=== PATIENT | female | born 1940 | race Caucasian/White ===

== ENCOUNTER → 2018-09-02 | Day surgery (SDC) | payer MEDICARE ==
[~2018-09-02] MED LIST: ACETAMINOPHEN325 M1 PO; ACETAMINOPHEN500 MG PO; ALLEGRA ALLERG180 MG PO; AMLODIPINE BESY10 MG PO; ARTIFICIAL TEA1 EACH OU; CARAFATE1 GM/10 ML PO; CILOSTAZOL100 MG PO; CIMZIA400 MG SC; DULCOLAX5 MG PO; DUONEB INH; EPINEPHRIN0.3 MG/0.3 SC; FERROUS SULFAT325 MG PO; FLUTICASONE PRO16 GM; GABAPENTIN300 MG PO; GUAIFENESI100 MG/5 M PO; GUAIFENESIN400 MG PO; HYDROXYZINE HCL25 MG PO; KAOPECTATE262 MG/15 PO; LEFLUNOMIDE10 MG PO; LIPITOR20 MG PO; LOMOTIL TABLET1 EACH PO; LOPERAMIDE PO; MAGNESIUM CITR296 ML PEG; MECLIZINE HCL12.5 MG PO; MULTIVITAMINS1 EAC6 PO; MYLANTA PO; MYRBETRIQ25 MG PO; NORCO 7.5-3251 EACH PO; NYSTOP60 GM TOP; OMEPRAZOLE40 MG PO; PATADAY2.5 ML OU; PAXIL10 MG PO; PROPOFOL IV EMULSION 10 MG/ML 50 ML VIAL ONE; QUESTRAN PACKET4 GM PO; ROPINIROLE HCL3 MG PO; SYNTHROID100 MCG PO; TIZANIDINE HCL4 M1 PO; VITAMIN B-121000 MCG PO; VITAMIN C500 MG PO; VITAMIN D5000 UNIT PO; VOLTAREN100 GM TOP; XARELTO20 MG PO; ZANTAC 7575 MG PO; ZOFRAN8 MG PO
--- OUTSIDE RECORDS SUMMARY | 2018-09-02 10:21 | XMS REPORT | Clinical Summary ---
Author Author [employer] Organization [facility] Address Unknown Phone Unavailable Care Team Providers Care Talent [employer] Manager Name Role Phone Callens, Ricardo Cutler MD PCP Allergies Comments Active Allergy Reactions Severity Noted Date Chlordiazepoxide Hydromorphone 10/10/2016 Other reaction(s): Other Duloxetine High Etanercept 10/10/2016 Chlordiazepoxide-Clidiniu 07/10/2017 m Methadone Other (See High Comments) Penicillins 10/10/2016 Medications End Date Status Medication Sig Dispensed Refills Start Date Active cilostazol (PLETAL) 100 Take 100 mg 0 MG tablet by mouth 2 (two) times a day. Active gabapentin (NEURONTIN) Take 600 mg 0 600 mg tablet by mouth 3 (three) times a day. Active hydrOXYzine (ATARAX) 10 Take 50 mg by 0 MG tablet mouth 3 (three) times a day as needed for itching. Active leflunomide (ARAVA) 10 MG Take 10 mg by 0 tablet mouth daily. Active levothyroxine (SYNTHROID, Take 150 mcg 0 LEVOXYL) 150 mcg tablet by mouth every morning. Active melatonin 3 mg tablet Take by 0 mouth. Active rOPINIRole (REQUIP) 3 MG Take 3 mg by 0 tablet mouth nightly. Active tiZANidine (ZANAFLEX) 2 Take 2 mg by 0 MG tablet mouth every 8 (eight) hours as needed for muscle spasms. Active rivaroxaban (XARELTO) 20 Take 20 mg by 0 mg tablet mouth. Active HYDROcodone-acetaminophen Take 1 tablet 0 (NORCO) 10-325 mg per by mouth tablet every 6 (six) hours as needed for moderate pain. Active PARoxetine (PAXIL) 20 MG Take 20 mg by 0 tablet mouth every morning. Active MOMETASONE FUROATE Inhale. 0 (ASMANEX HFA INHL) Active atorvastatin (LIPITOR) 10 Take 10 mg by 0 MG tablet mouth daily. Active fexofenadine (ASHLYN) Take 180 mg 0 180 MG tablet by mouth daily. Active traZODone (DESYREL) 50 MG Take 50 mg by 0 tablet mouth nightly. Active mirabegron 25 mg tablet Take by 0 extended release 24 hr mouth. Active cyanocobalamin 1000 MCG Take 1,000 0 tablet mcg by mouth daily. Active MAG HYDROX/ALUMINUM Take by mouth 0 HYD/SIMETH (MYLANTA ORAL) nightly. Active ferrous sulfate 325 (65 Take 325 mg 0 FE) MG tablet by mouth daily with breakfast. Active nystatin (MYCOSTATIN) Apply 0 100,000 unit/gram powder topically 2 (two) times a day. Active albuterol sulfate Take 2.5 mg 0 (PROVENTIL) 2.5 mg/0.5 mL by solution for nebulization nebulization every 6 (six) hours as needed. Active amLODIPine (NORVASC) 10 Take 10 mg by 0 mg tablet mouth daily. Active sucralfate (CARAFATE) 100 Take 1 g by 0 mg/mL suspension mouth 4 (four) times a day. 09/25/2018 Active cholestyramine (QUESTRAN) Take 1 packet 60 packet 3 4 gram packet by mouth 2 8 (two) times a day. Active cholecalciferol, vitamin Take 1,000 0 D3, (VITAMIN D3) 1,000 Units by unit tablet mouth daily. 09/25/2017 Discontinued benzonatate (TESSALON) Take 100 mg 0 100 MG capsule by mouth 3 (three) times a day as needed for cough. 09/25/2017 Discontinued guaiFENesin (ROBITUSSIN) Take 200 mg 0 100 mg/5 mL syrup by mouth 3 (three) times a day as needed for cough. 09/25/2017 Discontinued fluconazole (DIFLUCAN) Take 200 mg 0 200 MG tablet by mouth daily. 09/25/2017 Discontinued ranitidine (ZANTAC) 15 Take 75 mg by 0 mg/mL syrup mouth 2 (two) times a day. 09/12/2017 esomeprazole (NexIUM) 40 Take 1 60 capsule 2 MG capsule capsule (40 8 mg total) by mouth 2 (two) times a day for 30 days. 12/27/2017 cholestyramine (QUESTRAN) Take 1 packet 90 packet 2 4 gram packet by mouth 3 8 (three) times a day for 30 days. 12/27/2017 famotidine (PEPCID) 40 MG Take 1 tablet 30 tablet 2 tablet (40 mg total) 8 by mouth nightly for 30 days. Active Problems Problem Noted Date Diaphragmatic hernia without obstruction and without gangrene 08/13/2017 Diarrhea 08/13/2017 Other dysphagia 07/16/2017 Gastroesophageal reflux disease 07/16/2017 Dyspepsia 07/16/2017 Heartburn 07/16/2017 Debility 06/04/2017 Other cervical disc degeneration at C4-C5 level 06/03/2017 Cervical spinal stenosis 06/02/2017 Laceration of left elbow 03/04/2017 Olecranon bursitis of right elbow 10/10/2016 Encounters Care Team Description Date Type Specialty Derik Hernandez DO Cervicalgia; Other spondylosis, lumbar region 01/22/2018 Hospital Radiology Encounter Derik Hernandez DO Cervicalgia; Other spondylosis, lumbar region 01/22/2018 Hospital Radiology Encounter Derik Hernandez DO Cervicalgia (Primary Dx); Other spondylosis, lumbar region 01/20/2018 Transcribe Access Orders Ivan Payne MD Heartburn (Primary Dx); Dyspepsia; Gastroesophageal reflux disease, esophagitis presence not specified; Diverticulosis large intestine w/o perforation or abscess w/o bleeding 11/27/2017 Office Visit Gastroenterology Che Cantrell MA 10/02/2017 Telephone Gastroenterology Ivan Payne MD Diarrhea, unspecified type 10/01/2017 Hospital Radiology Encounter Ivan Payne MD Diarrhea, unspecified type (Primary Dx); Dyspepsia; Gastroesophageal reflux disease, esophagitis presence not specified; Heartburn 09/25/2017 Office Visit Gastroenterology after 09/01/2017 Family History Medical History Relation Name Comments Colon cancer Brother No Known Problems Father No Known Problems Mother Colon polyps Sister Breast cancer Sister Relation Name Status Comments Brother Father Mother Sister Sister Social History Date Tobacco Use Types Packs/Day Years Used Never Smoker Smokeless Tobacco: Never Used Tobacco Cessation: Counseling Given: No Alcohol Use Drinks/Week oz/Week Comments No Sex Assigned at Date Recorded Not on file Industry Job Start Date Occupation Not on file Not on file Not on file Travel End Travel History Travel Start No recent travel history available. Last Filed Vital Signs Time Taken Vital Sign Reading 11/27/2017 10:52 AM CDT Blood Pressure 147/72 11/27/2017 10:52 AM CDT Pulse 81 11/27/2017 10:52 AM CDT Temperature 36.6 C (97.9 F) 09/25/2017 11:19 AM FACING SLITTER Respiratory Rate 12 - Oxygen Saturation - - Inhaled Oxygen - Concentration 11/27/2017 10:52 AM CDT Weight 59.9 kg (132 lb) 11/27/2017 10:52 AM CDT Height 154.9 cm (5' 1") 11/27/2017 10:52 AM CDT Body Mass Index 24.94 Plan of Treatment Care Team Description Date Type Specialty Jose Cooper MD [address] [place] [address], [address] [place], [place] [address] 09/09/2018 Office Visit Cardiovascular Health Maintenance Due Date Last Done Comments SHINGLES VACCINES (1 of 01/31/1988 2) PNEUMOCOCCAL 2003 POLYSACCHARIDE VACCINE AGE 65 AND OVER PNEUMOCOCCAL-13 2003 INFLUENZA VACCINE 03/04/2018 06/04/2013 Procedures Comments Procedure Name Priority Date/Time Associated Diagnosis MRI LUMBAR SPINE WO Routine 01/22/2018 Cervicalgia CONTRAST 2:23 PM CDT Other spondylosis, lumbar region MRI CERVICAL SPINE WO Routine 01/22/2018 Cervicalgia CONTRAST 2:22 PM CDT Other spondylosis, lumbar region FL COLON WITH AIR Routine 10/01/2017 Diarrhea, unspecified CONTRAST 11:30 AM FACING SLITTER type after 09/01/2017 Results * MRI Lumbar Spine Wo Contrast (01/22/2018 2:23 PM CDT) Narrative Performed At EXAMINATION:MRI LUMBAR SPINE WO CONTRAST [facility] CLINICAL HISTORY:M54.2 Cervicalgia, M47.896 Other spondylosislumbar region, M47.896 COMPARISON: None FINDINGS: Noncontrast MRI of the lumbar spine is interpreted. There is collapse of the L5-S1 interbody space with bony fusion. Conus terminates in a normal position and is normal in signal intensity. L1-2: Mild bilateral facet arthrosis. L2-3: Minimal disc degenerative changes. Mild bilateral facet arthrosis. L3-4: Moderate prominent disc degenerative changes with endplate irregularity posteriorly. Disc bulge with superimposed broad-based right paracentral disc protrusion. Laminotomies bilaterally. Moderate to prominent facet arthrosis bilaterally. Mild left foraminal stenosis. L4-5: Marked disc degenerative changes. Endplate irregularity. Mixed Modic endplate signal changes. Disc bulge with superimposed broad-based central zone disc protrusion. Laminotomy bilaterally. Moderate to prominent facet arthrosis bilaterally. Moderate right and mild left foraminal stenosis. Mild canal stenosis. L5-S1: Solid bony fusion. There is deconditioning of the paraspinous musculature. IMPRESSION: Lumbar spondylosis, most pronounced at the L4-5 and L3-4 levels. No significant canal stenosis. Moderate right L4-5 foraminal stenosis. Solid bony fusion of L5-S1. Laminotomies of L4-5 and L3-4. [facility]-[id number] Procedure Note [facility], Radiology Results Incoming - 01/22/2018 4:51 PM CDT EXAMINATION: MRI LUMBAR SPINE WO CONTRAST CLINICAL HISTORY: M54.2 Cervicalgia, M47.896 Other spondylosis lumbar region, M47.896 COMPARISON: None FINDINGS: Noncontrast MRI of the lumbar spine is interpreted. There is collapse of the L5-S1 interbody space with bony fusion. Conus terminates in a normal position and is normal in signal intensity. L1-2: Mild bilateral facet arthrosis. L2-3: Minimal disc degenerative changes. Mild bilateral facet arthrosis. L3-4: Moderate prominent disc degenerative changes with endplate irregularity posteriorly. Disc bulge with superimposed broad-based right paracentral disc protrusion. Laminotomies bilaterally. Moderate to prominent facet arthrosis bilaterally. Mild left foraminal stenosis. L4-5: Marked disc degenerative changes. Endplate irregularity. Mixed Modic endplate signal changes. Disc bulge with superimposed broad-based central zone disc protrusion. Laminotomy bilaterally. Moderate to prominent facet arthrosis bilaterally. Moderate right and mild left foraminal stenosis. Mild canal stenosis. L5-S1: Solid bony fusion. There is deconditioning of the paraspinous musculature. IMPRESSION: Lumbar spondylosis, most pronounced at the L4-5 and L3-4 levels. No significant canal stenosis. Moderate right L4-5 foraminal stenosis. Solid bony fusion of L5-S1. Laminotomies of L4-5 and L3-4. [facility]-[id number] Performing Organization Address City/State/Zipcode Phone Number [facility] [address] [place] [place] [address] * MRI Cervical Spine Wo Contrast (01/22/2018 2:22 PM CDT) Narrative Performed At [facility] EXAMINATION:MRI CERVICAL SPINE WO CONTRAST CLINICAL HISTORY:M54.2 Cervicalgia, M47.896 Other spondylosislumbar region, M54.2 COMPARISON: MRI cervical spine dated 01/29/2017. FINDINGS: Noncontrast MRI of the cervical spine is interpreted. The cervical cord is normal in volume and in signal intensity. Bone marrow signal is normal. There are interval laminectomies of C4, C5, and C6. There is arthropathy of the median atlantoaxial joint with pannus formation. Moderate arthrosis of the left lateral atlantoaxial joint is noted as well. C2-3: Moderate left facet arthrosis, unchanged. C3-4: Moderate disc degenerative changes. Grade 1 anterolisthesis. Moderate bilateral facet arthrosis. Mild bilateral foraminal stenosis. Mild canal narrowing has improved. C4-5: Ankylosis. No significant stenosis. C5-6: Disc degenerative changes with mild dorsal endplate spurring. Moderate bilateral facet arthrosis, most pronounced on the left. Minimal right foraminal narrowing. Laminectomies. Otherwise no significant interval change. C6-7: This degenerative changes. Grade 1 anterolisthesis. Disc bulge. Shallow left paracentral disc protrusion. Moderate bilateral facet arthrosis. No significant interval change. C7-T1: Mild disc degenerative changes with grade 1 anterolisthesis. Mild disc bulge. Moderate bilateral facet arthrosis. No significant interval change. The paraspinous soft tissues are unremarkable. IMPRESSION: Interval laminectomies of C4, C5, and C6. Moderate to prominent cervical spondylosis without significant canal or foraminal stenosis. [facility]-[id number] Procedure Note Interface, Radiology Results 01/22/2018 5:03 PM CDT EXAMINATION: MRI CERVICAL SPINE WO CONTRAST CLINICAL HISTORY: M54.2 Cervicalgia, M47.896 Other spondylosis lumbar region, M54.2 COMPARISON: MRI cervical spine dated 01/29/2017. FINDINGS: Noncontrast MRI of the cervical spine is interpreted. The cervical cord is normal in volume and in signal intensity. Bone marrow signal is normal. There are interval laminectomies of C4, C5, and C6. There is arthropathy of the median atlantoaxial joint with pannus formation. Moderate arthrosis of the left lateral atlantoaxial joint is noted as well. C2-3: Moderate left facet arthrosis, unchanged. C3-4: Moderate disc degenerative changes. Grade 1 anterolisthesis. Moderate bilateral facet arthrosis. Mild bilateral foraminal stenosis. Mild canal narrowing has improved. C4-5: Ankylosis. No significant stenosis. C5-6: Disc degenerative changes with mild dorsal endplate spurring. Moderate bilateral facet arthrosis, most pronounced on the left. Minimal right foraminal narrowing. Laminectomies. Otherwise no significant interval change. C6-7: This degenerative changes. Grade 1 anterolisthesis. Disc bulge. Shallow left paracentral disc protrusion. Moderate bilateral facet arthrosis. No significant interval change. C7-T1: Mild disc degenerative changes with grade 1 anterolisthesis. Mild disc bulge. Moderate bilateral facet arthrosis. No significant interval change. The paraspinous soft tissues are unremarkable. IMPRESSION: Interval laminectomies of C4, C5, and C6. Moderate to prominent cervical spondylosis without significant canal or foraminal stenosis. [facility]-[id number] Performing Organization Address City/State/Zipcode Phone Number [facility] [address] [place] [address] * FL Colon with Air Contrast (10/01/2017 11:30 AM FACING SLITTER) Narrative Performed At PROCEDURE:FL COLON WITH AIR CONTRAST [facility] CLINICAL HISTORY:R19.7 Diarrheaunspecified, incomplete colonoscopydiarrhea COMPARISON:None. TECHNIQUE: A cullet washer image of the abdomen and pelvis was performed. This was followed by introduction ofbarium and air. Both fluoroscopic spot images were taken of the segments of the colon followed by overhead images of the colon in this supine AP and PA projections, left and right side down decubitus projections, exaggerated sigmoid projection, and shoot through lateral rectum with the rectal tube removed. A postevacuation film was also obtained. A total kV of81, mA of3.1, and fluoroscopic time of4.2 minutes was used for the procedure. The DAP (dose absorbed product) is: 55.2 mGy-cm^2 Total number of fluoroscopic spot images: 13 fluoroscopic spot images. FINDINGS: The cullet washer film demonstrates a nonspecific bowel gas pattern. Coldfusion film is seen in the right upper quadrant of the abdomen consistent with prior cholecystectomy. A few small calculi are seen projected over the left renal shadow with the largest calculus measuring 2 mm.. Multiple small wire sutures are seen projected over the vertical midline axis of the pelvis. Following administration ofbarium and air free flow of contrast was demonstrated through a tortuous and redundant colon to the cecum without reflux into the terminal ileum. Noulcerative, polypoid, or stenosing lesions are identified in the colon. Multiple small diverticula are present in the mid and distal descending colon as well as the proximal sigmoid. IMPRESSION: Abnormal study. Diverticulosis. Otherwise unremarkable. [id number] . Procedure Note Interface, Radiology Results Incoming - 10/01/2017 1:47 PM FACING SLITTER PROCEDURE: FL COLON WITH AIR CONTRAST CLINICAL HISTORY: R19.7 Diarrhea unspecified, incomplete colonoscopy diarrhea COMPARISON: None. TECHNIQUE: A cullet washer image of the abdomen and pelvis was performed. This was followed by introduction of barium and air. Both fluoroscopic spot images were taken of the segments of the colon followed by overhead images of the colon in this supine AP and PA projections, left and right side down decubitus projections, exaggerated sigmoid projection, and shoot through lateral rectum with the rectal tube removed. A postevacuation film was also obtained. A total kV of 81, mA of 3.1, and fluoroscopic time of 4.2 minutes was used for the procedure. The DAP (dose absorbed product) is: 55.2 mGy-cm^2 Total number of fluoroscopic spot images: 13 fluoroscopic spot images. FINDINGS: The cullet washer film demonstrates a nonspecific bowel gas pattern. Coldfusion film is seen in the right upper quadrant of the abdomen consistent with prior cholecystectomy. A few small calculi are seen projected over the left renal shadow with the largest calculus measuring 2 mm.. Multiple small wire sutures are seen projected over the vertical midline axis of the pelvis. Following administration of barium and air free flow of contrast was demonstrated through a tortuous and redundant colon to the cecum without reflux into the terminal ileum. No ulcerative, polypoid, or stenosing lesions are identified in the colon. Multiple small diverticula are present in the mid and distal descending colon as well as the proximal sigmoid. IMPRESSION: Abnormal study. Diverticulosis. Otherwise unremarkable. [id number] . Performing Organization Address City/State/Zipcode Phone Number [facility] [address] [place] [address] after 09/01/2017 Insurance Payer Benefit Subscriber ID Type Phone Address Plan / Group MEDICARE MEDICARE xxxxxxxxxx Medicare [place] PART A [place] B AARP AARP xxxxxxxxx Commercial SUPPLEMENT MEDICAID MEDICAID xxxxxxxxx Medicaid Advance Directives Patient has advance care planning documents, and code status on file. For more i nformation, please contact: Dimitri Gonzalez [address] [place] [address] Date Inactivated Comments Code Status Date Activated 06/13/2017 6:22 PM DNR 06/04/2017 11:00 PM Code Status decision reached by: Patient 06/04/2017 11:00 PM DNR 06/04/2017 7:59 PM Code Status decision reached by: Patient 06/04/2017 7:59 PM DNR 06/03/2017 12:36 PM Code Status decision reached by: Patient
--- OUTSIDE RECORDS SUMMARY | 2018-09-02 10:24 | XMS REPORT | CCD ---
Author Author Auto Generated Organization [facility] Address Unknown Phone Unavailable Care Team Providers Care Senior Energy Analyst Name Role Phone Keyon Raymundo CP JAIRO Santana Lab CP Unavailable Silvio Hdz CP Unavailable Harriett Fields CP [phone] Teresita Corbin CP Unavailable Hakan Carrera CP Unavailable Wendy Martinez CP Haseeb Lim CP Unavailable Alexis Lara CP Daisy Ya CP Unavailable Sterling Dvuall CP [phone] Regis Jimenez CP Unavailable Danny Edmonds CP Unavailable PCP, None CP Unavailable Jermaine Medeiros CP Unavailable Nuvia Alegria CP [phone] Char Khalil CP Unavailable Marine Dan CP Unavailable Stephan Trimble CP Unavailable Anne-Marie Montoya CP [phone] Latonia Engle CP Unavailable Kaylin Younglbood CP Unavailable Adriana Boo CP Unavailable Tanesha Howard CP Unavailable Jennifer Powers CP Rhiannon Trimble CP Unavailable Ovi Escobedo CP Keli Romero CP Unavailable Cesar Arevalo CP Alicja Burden CP Unavailable Willow Palafox CP Unavailable Micki Brooke CP Unavailable Bev Kline CP Unavailable Qamar Lamb CP Unavailable Dai Stewart CP Unavailable Penelope Hemphill CP Unavailable Lizzie Dave CP Unavailable Kala Lim Thi CP Lacey Johnston CP Tiffanie Mathur CP Unavailable TuLuis CP Unavailable Alvarez Landry CP Michelle Barrientos CP [phone] Fidel Cui CP Unavailable Leandra Winslow CP Unavailable Eliazar Berg CP Unavailable Rosey Hernandez CP Unavailable AlaYanet miguel CP Unavailable Pradeep Jose Enamorado CP [phone] Ho, Tawnya Phi My CP Pierre Karl M CP Palak Rodriguez ( CP Unavailable Diana Pope CP Unavailable Анна Steele CP Unavailable MistyLashanda cheney M CP Carol Hills H CP Zoila Renee CP [phone] Akash, Jumana CP Unavailable Akshat Cassidy CP [phone] Janeen Kline CP Ahmed, Gume Badillo CP Bertha Galloway Cristela CP Cherrie, Angela CP Gilma Gibbs CP Unavailable Jorge Martin CP Unavailable Omidvar, Gume CP Modesto Ivy CP Unavailable Arielle Bull CP Unavailable Kat Arora CP Unavailable SYSTEM, SYSTEM CP Unavailable Nayely Albarran CP Unavailable Skyler Arzate CP Unavailable Manda Mccoy CP Andrea Tian CP Unavailable Lorene Sands CP [phone] Severino Resendiz CP Unavailable Mesha Young CP Unavailable GeorgeXiomara hannon Etienne CP [phone] Petra Christiansen CP Unavailable Tracee Salgado CP Unavailable Calli Foreman CP [phone] IsabeeMike benjaminda Kianna CP Unavailable Dai Fagan CP Unavailable Rakan Cristaphchalo CP Unavailable Che Yuen CP Madiha Melendez CP Anders Coburn CP Amara Lowe CP Unavailable RoopaAndreas gooden CP Unavailable Lizzie Pope CP Unavailable CanapTish giron CP Unavailable Myron Packer CP Unavailable Mesha Allen CP Unavailable Rosalino Medellin CP Unavailable Maura Rutherforda CP [phone] Brian Denise CP Unavailable Brian Courtney CP Unavailable Urmila Marie CP Tatiana Pinto CP Unavailable Malena Lawton CP [phone] Akilah Villarreal CP Unavailable Latonia Holley CP Unavailable Fabrice Stewart CP Unavailable Nicole Marks CP Unavailable Kaylie Wetzel CP Unavailable Trever Arora CP Unavailable Tana Marcelo CP Unavailable Pj Bangura CP Unavailable Christina Lyons CP Unavailable RenzoJorge hinds B CP Unavailable Eyeoyibo, Oluwasimibo CP Floyd Nash CP Derik Rush CP Vasile Anguiano CP Unavailable Parker Phan CP Unavailable Kendra Pena CP Unavailable Allergies, Adverse Reactions, Alerts Substance Reaction Status Librax ?? Active methadone ?? Active penicillins ?? Active Problem List Condition Effective Dates Status Altered mental status ?? Active Nausea and vomiting ?? Active Medications Medication Instructions Start Date End Date Status morphine Sulfate 4 mg, 1 mL, Route: IVP, Drug form: 06/18/2011 06/18/2011 Completed INJ, ONCE, Priority: STAT, Start date: 06/18/11 11:04:00, Stop date: 06/18/11 11:04:00 molasses 240 mL, Route: NM, Drug Form: SYRP, 06/20/2011 06/26/2011 Discontinued Every Other Day-5PM, PRN Constipation, Milk AND Molasses Enema, Start date: 06/20/11 14:20:00, Duration: 30 day, Stop date: 07/20/11 14:19:00, If dulcolax suppository ineffective for BM If dulcolax suppository ineffective for BM Saline Flush 0.9% 5 ml, Route: IVP, Drug Form: INJ, 06/18/2011 06/26/2011 Discontinued PRN, PRN Line Flush, Start date: 06/18/11 9:34:00, Duration: 30 day, Stop date: 07/18/11 9:33:00 pneumococcal 0.5 ml, Route: IM, Drug Form: INJ, 06/19/2011 06/19/2011 Completed 23-valent vaccine Start date: 06/19/11 9:00:00, Stop date: 06/19/11 9:00:00 influenza virus 0.5 mL, Route: IM, Drug Form: INJ, 06/19/2011 06/19/2011 Completed vaccine, inactivated Start date: 06/19/11 9:00:00, Stop date: 06/19/11 9:00:00 hydromorphone 1 mg, 0.5 mL, Route: IVP, Drug 06/18/2011 06/18/2011 Completed form: INJ, ONCE, Priority: STAT, Start date: 06/18/11 21:12:00, Stop date: 06/18/11 21:12:00 moxifloxacin 400 mg 400 mg, 1 tab, PO, [id number], 10 tab, 06/26/2011 07/06/2011 Ordered oral tablet Substitution Allowed, TAB Dulcolax Laxative 10 mg, 1 supp, Route: NM, Drug 06/19/2011 06/26/2011 Discontinued form: SUPP, Daily, PRN Constipation, Start date: 06/19/11 14:56:00, Duration: 30 day, Stop date: 07/19/11 14:55:00 Flagyl 500 mg oral 500 mg, 1 tab, PO, Q6H, 40 tab, 06/26/2011 07/06/2011 Ordered tablet Substitution Allowed, TAB morphine Sulfate 4 mg, 1 mL, Route: IVP, Drug form: 06/19/2011 06/26/2011 Discontinued INJ, Q2H, PRN Pain, Start date: 06/19/11 15:07:00, Duration: 30 day, Stop date: 07/19/11 15:06:00, IF NORCO INEFFECTIVE AFTER 90 MINUTES IF NORCO INEFFECTIVE AFTER 90 MINUTES naloxone 0.4 mg, 1 mL, Route: IV, Drug form: 06/19/2011 06/20/2011 Discontinued INJ, PRN, PRN Narcotic Reversal, Start date: 06/19/11 15:07:00, Duration: 30 day, Stop date: 07/19/11 15:06:00 Flagyl 500 mg, 1 tab, Route: PO, Drug 06/19/2011 06/26/2011 Discontinued form: TAB, Q6H, Start date: 06/19/11 12:00:00, Duration: 30 day, Stop date: 07/19/11 6:00:00 Haldol 1 mg, 1 tab, Route: PO, Drug form: 06/23/2011 06/26/2011 Discontinued TAB, Bedtime, PRN as needed for anxiety, Start date: 06/23/11 15:56:00, Duration: 30 day, Stop date: 07/23/11 15:55:00 Flagyl 500 mg, Route: PO, Drug form: TAB, 06/26/2011 06/26/2011 Deleted Q6H, Start date: 06/26/11 18:00:00, Duration: 30 day, Stop date: 07/26/11 12:00:00 magnesium sulfate 4 gm, 100 mL, Route: IVPB, Drug 06/21/2011 06/21/2011 Deleted form: INJ, ONCE, Start date: 06/21/11 17:47:00, Stop date: 06/21/11 17:47:00 vancomycin 1 gm, Route: IVPB, Drug form: INJ, 06/18/2011 06/18/2011 Completed ONCE, Start date: 06/18/11 17:47:00, Stop date: 06/18/11 17:47:00 magnesium sulfate 2 gm, 50 mL, Route: IV, Drug form: 06/18/2011 06/18/2011 Completed INJ, ONCE, Start date: 06/18/11 11:21:00, Stop date: 06/18/11 11:21:00 Compazine 5 mg, 1 mL, Route: IV, Drug form: 06/19/2011 06/22/2011 Discontinued INJ, Q4H, PRN Nausea & Vomiting, Start date: 06/19/11 14:54:00, Duration: 30 day, Stop date: 07/19/11 14:53:00 Remicade Substitution Allowed 06/18/2011 06/26/2011 Discontinued nystatin [id number], PO, QID, Substitution 06/18/2011 ?? Ordered Allowed, SUSP morphine Sulfate 30 IV, Start date: 06/19/11 15:05:00, 06/19/2011 06/20/2011 Discontinued mg 30 ml Triamcinolone 0.1% topical creme, TOP, PRN, 06/18/2011 ?? Ordered Acetonide Substitution Allowed, CRM Lovenox 40 mg, 0.4 mL, Route: SUB-Q, Drug 06/20/2011 06/26/2011 Discontinued form: INJ, Daily, Start date: 06/20/11 18:00:00, Duration: 30 day, Stop date: 07/19/11 18:00:00 moxifloxacin 400 mg 400 mg, 1 tab, Route: PO, Drug 06/27/2011 06/26/2011 Canceled oral tablet form: TAB, [id number], Start date: 06/27/11 9:00:00, Duration: 10 day, Stop date: 07/06/11 9:00:00 nystatin topical 1 appl, Route: TOP, BID, Drug form: 06/22/2011 06/26/2011 Discontinued 100,000 units/g PWDR, Start date: 06/22/11 powder 17:00:00, Duration: 30 day, Stop date: 07/22/11 9:00:00 Uribel oral capsule 1 cap, PO, Daily, Substitution 06/18/2011 ?? Ordered Allowed, Maintenance, TAB Diflucan 100 mg, PO, Daily, Substitution 06/18/2011 ?? Ordered Allowed, TAB morphine Sulfate 60 mg, PO, Q12H, Substitution 06/18/2011 ?? Ordered Allowed, ERCAP Neurontin 400 mg, PO, BID, Substitution 06/18/2011 ?? Ordered Allowed, CAP Dryfork 10/325 oral 1 tab, Route: PO, Drug Form: TAB, 06/21/2011 06/26/2011 Discontinued tablet Q4H, PRN Pain, Start date: 06/21/11 15:04:00, Duration: 30 day, Stop date: 07/21/11 15:03:00 gemfibrozil 600 mg, PO, BID, Substitution 06/18/2011 ?? Ordered Allowed, TAB sumatriptan 100 mg, PO, PRN, Substitution 06/18/2011 ?? Ordered Allowed, 1-2 tabs a day prn migraine, TAB 1-2 tabs a day prn migraine zolpidem 5 mg, PO, Bedtime, Substitution 06/18/2011 ?? Ordered Allowed, TAB naloxone 0.4 mg, 1 mL, Route: IV, Drug form: 06/20/2011 06/21/2011 Discontinued INJ, PRN, PRN Narcotic Reversal, Start date: 06/20/11 15:51:00, Duration: 30 day, Stop date: 07/20/11 15:50:00 potassium chloride 20 mEq, Route: IVPB, ONCE, 06/18/2011 06/18/2011 Completed Priority: Routine, Start date: 06/18/11 11:20:00, Stop date: 06/18/11 11:20:00 morphine Sulfate 4 mg, 1 mL, Route: IVP, Drug form: 06/19/2011 06/19/2011 Completed INJ, ONCE, Start date: 06/19/11 14:46:00, Stop date: 06/19/11 14:46:00 dipyridamole 75 mg, PO, BID, Substitution 06/18/2011 ?? Ordered Allowed, CAP Zofran 4 mg, 2 mL, Route: IVP, Drug form: 06/22/2011 06/26/2011 Discontinued INJ, Q8H, PRN Nausea & Vomiting, Start date: 06/22/11 9:03:00, Duration: 30 day, Stop date: 07/22/11 9:02:00 ropinirole 3 mg, PO, Bedtime, Substitution 06/18/2011 ?? Ordered Allowed, TAB Nexium 40 mg, PO, Daily, Substitution 06/18/2011 ?? Ordered Allowed, CAP estradiol 1 mg, PO, Daily, Substitution 06/18/2011 ?? Ordered Allowed, TAB sucralfate 1 gm, PO, QID-Before Meals, 06/18/2011 ?? Ordered Substitution Allowed, TAB Inderal LA 80 mg, PO, Daily, Substitution 06/18/2011 ?? Ordered Allowed, TAB Haldol 1 mg, 1 tab, Route: PO, Drug form: 06/24/2011 06/26/2011 Discontinued TAB, TID, PRN Agitation, Start date: 06/24/11 9:39:00, Duration: 30 day, Stop date: 07/24/11 9:38:00 sodium bicarbonate 650 mg, 1 tab, Route: PO, Drug 06/24/2011 06/26/2011 Discontinued form: TAB, TID, Start date: 06/24/11 13:00:00, Duration: 30 day, Stop date: 07/24/11 9:00:00 calcium gluconate 1,000 mg, 10 mL, Route: IVPB, Drug 06/21/2011 06/21/2011 Completed form: INJ, ONCE, Start date: 06/21/11 5:31:00, Stop date: 06/21/11 5:31:00 Levoxyl 75 microgram, PO, Daily, 06/18/2011 ?? Ordered Substitution Allowed, TAB senna 8.6 mg oral 8.6 mg, 1 tab, Route: PO, Drug 06/21/2011 06/26/2011 Discontinued tablet Form: TAB, Bedtime, Start date: 06/21/11 21:00:00, Duration: 30 day, Stop date: 07/20/11 21:00:00 morphine 45 mg/24 1 cap, Route: PO, Daily, Priority: 06/19/2011 06/19/2011 Deleted hours oral capsule, NOW, Start date: 06/19/11 2:04:00, extended release Duration: 30 day, Stop date: 07/18/11 9:00:00 Lovenox 40 mg, Route: SUB-Q, Daily, Start 06/22/2011 06/21/2011 Canceled date: 06/22/11 9:00:00, Duration: 30 day, Stop date: 07/21/11 9:00:00 NS 1,000 mL 1,000 mL, Rate: 125 ml/hr, Infuse 06/18/2011 06/24/2011 Discontinued over: 8 hr, Route: IV, Total Volume: 1,000, Start date: 06/18/11 17:53:00, Stop date: 07/18/11 17:52:00 Sodium Chloride 0.9% 500 mL, Rate: 500 ml/hr, Infuse 06/18/2011 06/18/2011 Completed (Bolus) IV 500 mL over: 1 hr, Route: IV, Total Volume: 500, Bolus Dose, Priority: STAT, Start date: 06/18/11 12:06:00, Duration: 1 doses or times, Stop date: 06/18/11 13:05:00 NS (Bolus) IV 1,000 1,000 mL, Rate: 1,000 ml/hr, Infuse 06/18/2011 06/18/2011 Completed mL over: 1 hr, Route: IV, Total Volume: 1,000, Priority: STAT, Start date: 06/18/11 17:53:00, Duration: 1 doses or times, Stop date: 06/18/11 18:52:00, Bolus Dose Bolus Dose NS (Bolus) IV 1,000 1,000 mL, Rate: 1,000 ml/hr, Infuse 06/18/2011 06/18/2011 Completed mL over: 1 hr, Route: IV, Total Volume: 1,000, Priority: STAT, Start date: 06/18/11 17:52:00, Duration: 1 doses or times, Stop date: 06/18/11 18:51:00, Bolus Dose Bolus Dose chloramphenicol 0.75 gm, Route: IV, Drug form: 06/18/2011 06/18/2011 Discontinued PDR/INJ, ABXQ6H, Start date: 06/18/11 21:30:00, Duration: 30 day, Stop date: 07/18/11 15:30:00 fentanyl 100 microgram, Route: IVP, ONCE, 06/18/2011 06/18/2011 Completed Priority: STAT, Start date: 06/18/11 10:14:00, Stop date: 06/18/11 10:14:00 MS Contin 60 mg, 2 tab, Route: PO, Drug form: 06/21/2011 06/26/2011 Discontinued ERTAB, Q12H, D/c 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 MS Contin 1st dose, Start date: 06/21/11 16:00:00, Stop date: 07/21/11 9:00:00 pneumococcal 0.5 ml, Route: IM, Drug Form: INJ, 06/19/2011 06/19/2011 Completed 23-valent vaccine Daily, Start date: 06/19/11 9:00:00, Duration: 1 doses or times, Stop date: 06/19/11 9:00:00 influenza virus 0.5 mL, Route: IM, Drug Form: INJ, 06/19/2011 06/19/2011 Completed vaccine, inactivated Daily, Start date: 06/19/11 9:00:00, Duration: 1 doses or times, Stop date: 06/19/11 9:00:00 DuoNeb inhalation 3 ml, Route: INHALATION, Drug Form: 06/23/2011 06/26/2011 Discontinued solution SOLN, RQ6H, Start date: 06/23/11 11:28:00, Duration: 30 day, Stop date: 07/23/11 8:00:00 sulfamethoxazole-tri 200 mg, 12.5 mL, 233.33 ml/hr, 06/19/2011 06/23/2011 Discontinued methoprim 80 mg-16 Route: IVPB, ABXQ6H, for meningitis mg/mL intravenous dose for listeria 10 to 20 mg/kg., solution NOW, Start date: 06/19/11 2:19:00, Duration: 30 day, Stop date: 07/18/11 20:19:00 moxifloxacin 400 mg, 250 mL, Route: IVPB, Drug 06/19/2011 06/26/2011 Discontinued form: INJ, [id number], Priority: NOW, Start date: 06/19/11 2:15:00, Duration: 30 day, Stop date: 07/18/11 2:15:00 potassium chloride 40 mEq, 2 tab, Route: PO, Drug 06/21/2011 06/22/2011 Completed form: ERTAB, BID, Start date: 06/21/11 17:00:00, Duration: 2 doses or times, Stop date: 06/22/11 9:00:00 magnesium sulfate 1 gm, 100 mL, Route: IVPB, Drug 06/21/2011 06/21/2011 Completed form: INJ, ONCE, Start date: 06/21/11 9:57:00, Stop date: 06/21/11 9:57:00 fentanyl 50 microgram, Route: IVP, ONCE, 06/18/2011 06/18/2011 Completed Priority: STAT, Start date: 06/18/11 10:14:00, Stop date: 06/18/11 10:14:00 magnesium sulfate 3 gm, 6 mL, Route: IVPB, ONCE, 06/21/2011 06/21/2011 Completed Start date: 06/21/11 20:30:00, Stop date: 06/21/11 20:30:00 chloramphenicol 738 mg, Route: IVPB, Drug form: 06/18/2011 06/18/2011 Discontinued PDR/INJ, Q6H, Start date: 06/18/11 18:00:00, Duration: 30 day, Stop date: 07/18/11 12:00:00 Norvasc 2.5 mg, PO, Daily, Substitution 06/18/2011 ?? Ordered Allowed, TAB calcium gluconate 2,000 mg, 20 mL, Route: IVPB, Drug 06/21/2011 06/21/2011 Completed form: INJ, ONCE, Start date: 06/21/11 9:56:00, Stop date: 06/21/11 9:56:00 Ultram 50 mg oral 50 mg, 1 tab, Route: PO, Drug form: 06/19/2011 06/19/2011 Discontinued tablet TAB, Q6H, Priority: NOW, Start date: 06/19/11 5:17:00, Duration: 30 day, Stop date: 07/19/11 0:00:00 fluoxetine 20 mg, PO, Daily, Substitution 06/18/2011 ?? Ordered Allowed, CAP naproxen 500 mg, 1 tab, Route: PO, Drug 06/19/2011 06/26/2011 Discontinued form: TAB, Q12H, Start date: 06/19/11 9:00:00, Duration: 30 day, Stop date: 07/18/11 21:00:00 Dryfork 10/325 oral 1 tab, Route: PO, Drug Form: TAB, 06/19/2011 06/19/2011 Discontinued tablet Q4H, PRN Pain, Start date: 06/19/11 5:16:00, Duration: 30 day, Stop date: 07/19/11 5:15:00 Protonix 40 mg, 1 tab, Route: PO, Drug form: 06/19/2011 06/26/2011 Discontinued ECTAB, Before Dinner, Start date: 06/19/11 16:30:00, Duration: 30 day, Stop date: 07/18/11 16:30:00 MS Contin 60 mg, 2 tab, Route: PO, Drug form: 06/19/2011 06/19/2011 Discontinued ERTAB, Q12H, Start date: 06/19/11 9:00:00, Duration: 30 day, Stop date: 07/18/11 21:00:00 hydromorphone 1 mg, Route: IVP, Drug form: INJ, 06/18/2011 06/18/2011 Completed ONCE, Priority: STAT, Start date: 06/18/11 20:24:00, Stop date: 06/18/11 20:24:00 morphine Sulfate 4 mg, Route: IVP, ONCE, Priority: 06/18/2011 06/18/2011 Completed STAT, Start date: 06/18/11 13:24:00, Stop date: 06/18/11 13:24:00 acetaminophen 975 mg, 3 tab, Route: PO, Drug 06/18/2011 06/18/2011 Completed form: TAB, ONCE, Priority: STAT, Start date: 06/18/11 18:19:00, Stop date: 06/18/11 18:19:00 hydromorphone 1 mg, Route: IVP, ONCE, Priority: 06/18/2011 06/18/2011 Completed STAT, Start date: 06/18/11 18:19:00, Stop date: 06/18/11 18:19:00 MiraLax 17 gm, 1 pkt, Route: PO, Drug form: 06/23/2011 06/24/2011 Discontinued PWDR, Daily, Start date: 06/23/11 18:00:00, Duration: 30 day, Stop date: 07/23/11 9:00:00 hydromorphone 1 mg, 0.5 mL, Route: IVP, Drug 06/18/2011 06/18/2011 Completed form: INJ, ONCE, Priority: STAT, Start date: 06/18/11 14:02:00, Stop date: 06/18/11 14:02:00 zolpidem 5 mg, Route: PO, Drug form: TAB, 06/19/2011 06/19/2011 Discontinued Bedtime, Start date: 06/19/11 21:00:00, Duration: 30 day, Stop date: 07/18/11 21:00:00 ropinirole 3 mg, 3 tab, Route: PO, Drug form: 06/19/2011 06/26/2011 Discontinued TAB, Bedtime, Start date: 06/19/11 21:00:00, Duration: 30 day, Stop date: 07/18/11 21:00:00 sucralfate 1 gm, 1 tab, Route: PO, Drug form: 06/19/2011 06/26/2011 Discontinued TAB, QID-Before Meals, Start date: 06/19/11 7:30:00, Duration: 30 day, Stop date: 07/18/11 21:00:00 Inderal LA 80 mg, 1 cap, Route: PO, Drug form: 06/19/2011 06/26/2011 Discontinued ERCAP, Daily, Start date: 06/19/11 9:00:00, Duration: 30 day, Stop date: 07/18/11 9:00:00 Ambien 5 mg, 1 tab, Route: PO, Drug form: 06/19/2011 06/26/2011 Discontinued TAB, Bedtime, Start date: 06/19/11 21:00:00, Duration: 30 day, Stop date: 07/18/11 21:00:00 calcium gluconate 2,000 mg, 20 mL, Route: IVPB, ONCE, 06/22/2011 06/22/2011 Completed Start date: 06/22/11 18:15:00, Stop date: 06/22/11 18:15:00 Levoxyl 0.075 mg, 1 tab, Route: PO, Drug 06/19/2011 06/26/2011 Discontinued form: TAB, [id number], Start date: 06/19/11 6:30:00, Duration: 30 day, Stop date: 07/18/11 6:30:00 fluoxetine 20 mg, 1 cap, Route: PO, Drug form: 06/19/2011 06/26/2011 Discontinued CAP, Daily, Start date: 06/19/11 9:00:00, Duration: 30 day, Stop date: 07/18/11 9:00:00 Diflucan 100 mg, 1 tab, Route: PO, Drug 06/19/2011 06/26/2011 Discontinued form: TAB, Daily, Start date: 06/19/11 9:00:00, Duration: 30 day, Stop date: 07/18/11 9:00:00 gemfibrozil 600 mg, 1 tab, Route: PO, Drug 06/19/2011 06/26/2011 Discontinued form: TAB, BID-Before Meals, Start date: 06/19/11 7:30:00, Duration: 30 day, Stop date: 07/18/11 16:30:00 Neurontin 400 mg, 1 cap, Route: PO, Drug 06/19/2011 06/26/2011 Discontinued form: CAP, BID, Start date: 06/19/11 9:00:00, Duration: 30 day, Stop date: 07/18/11 17:00:00 estradiol 1 mg, 1 tab, Route: PO, Drug form: 06/19/2011 06/26/2011 Discontinued TAB, Daily, Start date: 06/19/11 9:00:00, Duration: 30 day, Stop date: 07/18/11 9:00:00 Norvasc 2.5 mg, 1 tab, Route: PO, Drug 06/19/2011 06/26/2011 Discontinued form: TAB, Daily, Start date: 06/19/11 9:00:00, Duration: 30 day, Stop date: 07/18/11 9:00:00 dipyridamole 75 mg, 1 tab, Route: PO, Drug form: 06/19/2011 06/26/2011 Discontinued TAB, BID, Start date: 06/19/11 9:00:00, Duration: 30 day, Stop date: 07/18/11 17:00:00 Nexium 40 mg, Route: PO, Drug form: CAP, 06/19/2011 06/19/2011 Discontinued Daily, Start date: 06/19/11 9:00:00, Duration: 30 day, Stop date: 07/18/11 9:00:00 potassium chloride 20 mEq, 100 mL, Route: IVPB, ONCE, 06/18/2011 06/20/2011 Completed Start date: 06/18/11 18:41:00, Stop date: 06/18/11 18:41:00 chloramphenicol 2,954.55 mg, Route: IV, ONCE, Start 06/18/2011 06/18/2011 Discontinued date: 06/18/11 20:24:00, Stop date: 06/18/11 20:24:00 morphine Sulfate 30 IV, Start date: 06/20/11 15:45:00, 06/20/2011 06/21/2011 Discontinued mg Duration: 30, 30 ml calcium gluconate 2,000 mg, 20 mL, Route: IVPB, ONCE, 06/22/2011 06/22/2011 Deleted Start date: 06/22/11 14:00:00, Stop date: 06/22/11 14:00:00 potassium chloride 20 mEq, 100 mL, Route: IVPB, ONCE, 06/19/2011 06/19/2011 Completed Start date: 06/19/11 17:47:00, Stop date: 06/19/11 17:47:00 hydromorphone 1 mg, 0.5 mL, Route: IVP, Drug 06/18/2011 06/18/2011 Completed form: INJ, ONCE, Priority: STAT, Start date: 06/18/11 16:12:00, Stop date: 06/18/11 16:12:00 Sodium Chloride 0.9% 500 mL, Rate: 500 ml/hr, Infuse 06/18/2011 06/18/2011 Completed (Bolus) IV 500 mL over: 1 hr, Route: IV, Total Volume: 500, Bolus Dose, Priority: STAT, Start date: 06/18/11 15:52:00, Duration: 1 doses or times, Stop date: 06/18/11 16:51:00 Immunizations Vaccine Date Status influenza virus vaccine, inactivated 06/19/2011 Auth (Verified) pneumococcal 23-valent vaccine 06/19/2011 Auth (Verified) Vital Signs Most recent to oldest [Reference Range]: 1 2 3 Height 162.56 cm (06/18/2011 09:14:00) ? Temperature Oral [96.4-99.1 DegF] 98.1 DegF (06/26/2011 15:56:00) ?? 98.1 DegF (06/26/2011 11:42:00) ?? 98.2 DegF (06/26/2011 08:08:00) ?? Systolic Blood Pressure [90-140 mmHg] 105 mmHg (06/26/2011 15:56:00) ?? 94 mmHg (06/26/2011 11:42:00) ?? 127 mmHg (06/26/2011 08:08:00) ?? Diastolic Blood Pressure [60-90 mmHg] 68 mmHg (06/26/2011 15:56:00) ?? 55 mmHg *LOW* (06/26/2011 11:42:00) ?? 73 mmHg (06/26/2011 08:08:00) ?? Respiratory Rate [14-20 BRMIN] 18 BRMIN (06/26/2011 15:56:00) ?? 20 BRMIN (06/26/2011 11:42:00) ?? 20 BRMIN (06/26/2011 08:08:00) ?? Peripheral Pulse Rate [60-100 bpm] 119 bpm *HI* (06/26/2011 15:56:00) ?? 63 bpm (06/26/2011 11:42:00) ?? 61 bpm (06/26/2011 08:08:00) ?? Weight 59.091 kg (06/18/2011 09:14:00) ? Results BACTERIAL - SEROLOGY Most recent to oldest [Reference Range]: 1 2 3 C diff Toxin Negative (06/24/2011 18:20:00) ? BODY FLUIDS Most recent to oldest [Reference Range]: 1 2 3 Glucose CSF [45-80 mg/dL] 67 mg/dL (06/18/2011 20:01:00) ? Protein CSF [15-45 mg/dL] 51 mg/dL *HI* (06/18/2011 20:01:00) ? Tube Num CSF 4 *NA* (06/18/2011 20:01:00) ?? 1 *NA* (06/18/2011 20:01:00) ? Color CSF [>Colorless] Colorless (06/18/2011 20:01:00) ?? Colorless (06/18/2011 20:01:00) ? Clarity CSF [>Clear] Clear (06/18/2011 20:01:00) ?? Slight *ABN* (06/18/2011 20:01:00) ? Supernat CSF [>Colorless] Colorless (06/18/2011 20:01:00) ?? Colorless (06/18/2011:01:00) ? RBC CSF [0-0 /mm3] 490 /mm3 *HI* (06/18/2011 20:01:00) ?? 700 /mm3 *HI* (06/18/2011 20:01:00) ? WBC CSF [0-5 /mm3] 1 /mm3 (06/18/2011:01:00) ?? 2 /mm3 (06/18/2011:01:00) ? Comment CSF Differential not performed on WBC count of less than 5. *NA* (06/18/2011:01:00) ?? Differential not performed on WBC count of less than 5. *NA* (06/18/2011:01:00) ? BEDSIDE GLUCOSE TESTING Most recent to oldest [Reference Range]: 1 2 3 Gluc POC Lifscn [65-110 mg/dL] 130 mg/dL 1 *HI* (06/18/2011 22:23:00) ? Comment1 Notify RN/MD *NA* (06/18/2011 22:23:00) ? 1Interpretive Data: Upper Reportable Limit: 200 mg/dL. URINALYSIS Most recent to oldest [Reference Range]: 1 2 3 UA Turbidity [>Clear] Clear (06/23/2011 18:12:00) ?? Clear (06/18/2011 15:15:00) ? UA Color [>Yellow] Yellow *NA* (06/23/2011 18:12:00) ?? Yellow *NA* (06/18/2011 15:15:00) ? UA pH [5.0-8.0] 6.0 (06/23/2011 18:12:00) ?? 6.0 (06/18/2011 15:15:00) ? UA Spec Grav [<<=1.030] 1.010 (06/23/2011 18:12:00) ?? 1.010 (06/18/2011 15:15:00) ? UA Glucose [>Negative mg/dL] Negative mg/dL (06/23/2011 18:12:00) ? UA Glucose [>Negative] Negative (06/18/2011 15:15:00) ? UA Blood [>Negative] Negative (06/23/2011 18:12:00) ?? Trace *ABN* (06/18/2011 15:15:00) ? UA Ketones [>Negative mg/dL] Negative mg/dL *NA* (06/23/2011 18:12:00) ? UA Ketones [>Negative] Trace *ABN* (06/18/2011 15:15:00) ? UA Protein [>Negative mg/dL] Negative mg/dL (06/23/2011 18:12:00) ? UA Protein [>Negative] Trace *ABN* (06/18/2011 15:15:00) ? UA Urobilinogen [0.1-1.0 EU/dL] 0.2 EU/dL (06/23/2011 18:12:00) ?? 0.2 EU/dL (06/18/2011 15:15:00) ? UA Bili [>Negative] Negative *NA* (06/23/2011 18:12:00) ?? Negative *NA* (06/18/2011 15:15:00) ? UA Leuk Est [>Negative] Negative (06/23/2011 18:12:00) ?? Negative (06/18/2011 15:15:00) ? UA Nitrite [>Negative] Negative (06/23/2011 18:12:00) ?? Negative (06/18/2011 15:15:00) ? UA WBC [>None Seen /HPF] 0-2 /HPF (06/18/2011 15:15:00) ? UA RBC [>0-2] None Seen (06/18/2011 15:15:00) ? UA Bacteria [>None Seen] None Seen (06/18/2011 15:15:00) ? UA Sq Epi [>Few /LPF] Few /LPF (06/23/2011 18:12:00) ?? Rare /LPF (06/18/2011 15:15:00) ? UA Mucus [>None Seen] None Seen (06/18/2011 15:15:00) ? Micro? Performed (06/18/2011 15:15:00) ? CHEMISTRY Most recent to oldest [Reference Range]: 1 2 3 Sodium Lvl [135-145 mEq/L] 138 mEq/L (06/26/2011 04:08:00) ?? 139 mEq/L (06/25/2011 05:20:00) ?? 132 mEq/L *LOW* (06/24/2011 03:54:00) ?? Potassium Lvl [3.5-5.1 mEq/L] 4.2 mEq/L (06/26/2011 04:08:00) ?? 4.2 mEq/L (06/25/2011 05:20:00) ?? 4.7 mEq/L (06/24/2011 03:54:00) ?? Chloride Lvl [95-109 mEq/L] 107 mEq/L (06/26/2011 04:08:00) ?? 109 mEq/L (06/25/2011 05:20:00) ?? 107 mEq/L (06/24/2011 03:54:00) ?? CO2 [24-32 mEq/L] 20 mEq/L *LOW* (06/26/2011 04:08:00) ?? 18 mEq/L *LOW* (06/25/2011 05:20:00) ?? 13 mEq/L *LOW* (06/24/2011 03:54:00) ?? AGAP [10.0-20.0 mEq/L] 15.2 mEq/L (06/26/2011 04:08:00) ?? 16.2 mEq/L (06/25/2011 05:20:00) ?? 16.7 mEq/L (06/24/2011 03:54:00) ?? Creatinine Lvl [0.5-1.4 mg/dL] 0.8 mg/dL (06/26/2011 04:08:00) ?? 0.8 mg/dL (06/25/2011 05:20:00) ?? 1.4 mg/dL (06/24/2011 03:54:00) ?? BUN [7-22 mg/dL] 8 mg/dL (06/26/2011 04:08:00) ?? 11 mg/dL (06/25/2011 05:20:00) ?? 13 mg/dL (06/24/2011 03:54:00) ?? B/C Ratio [6-25] 10 (06/26/2011 04:08:00) ?? 14 (06/25/2011 05:20:00) ?? 10 (06/23/2011 04:00:00) ?? Glucose Lvl 78 mg/dL 2 *NA* (06/26/2011 04:08:00) ?? 61 mg/dL 3 *NA* (06/25/2011 05:20:00) ?? 64 mg/dL 4 *NA* (06/24/2011 03:54:00) ?? Total Protein [6.4-8.4 g/dL] 6.3 g/dL *LOW* (06/26/2011 04:08:00) ?? 6.7 g/dL (06/25/2011 05:20:00) ?? 6.7 g/dL (06/23/2011 04:00:00) ?? Albumin Lvl [3.5-5.0 g/dL] 2.9 g/dL *LOW* (06/26/2011 04:08:00) ?? 3.0 g/dL *LOW* (06/25/2011 05:20:00) ?? 3.2 g/dL *LOW* (06/23/2011 04:00:00) ?? Globulin [2.0-4.0 g/dL] 3.4 g/dL (06/26/2011 04:08:00) ?? 3.7 g/dL (06/25/2011 05:20:00) ?? 3.5 g/dL (06/23/2011 04:00:00) ?? A/G Ratio [0.7-1.6] 0.9 (06/26/2011 04:08:00) ?? 0.8 (06/25/2011 05:20:00) ?? 0.9 (06/23/2011 04:00:00) ?? Calcium Lvl [8.5-10.5 mg/dL] 8.0 mg/dL *LOW* (06/26/2011 04:08:00) ?? 8.2 mg/dL *LOW* (06/25/2011 05:20:00) ?? 7.5 mg/dL *LOW* (06/24/2011 03:54:00) ?? Phosphorus [2.5-4.5 mg/dL] 2.7 mg/dL (06/26/2011 04:08:00) ?? 3.4 mg/dL (06/23/2011 04:00:00) ?? 2.7 mg/dL (06/22/2011 04:58:00) ?? Magnesium Lvl [1.8-2.4 mg/dL] 1.2 mg/dL *LOW* (06/26/2011 04:08:00) ?? 1.9 mg/dL (06/23/2011 04:00:00) ?? 2.5 mg/dL *HI* (06/22/2011 04:58:00) ?? ALT [0-65 U/L] 18 U/L (06/26/2011 04:08:00) ?? 22 U/L (06/25/2011 05:20:00) ?? 19 U/L (06/23/2011 04:00:00) ?? AST [0-37 U/L] 26 U/L (06/26/2011 04:08:00) ?? 32 U/L (06/25/2011 05:20:00) ?? 26 U/L (06/23/2011 04:00:00) ?? Alk Phos [39-136 U/L] 45 U/L (06/26/2011 04:08:00) ?? 49 U/L (06/25/2011 05:20:00) ?? 46 U/L (06/23/2011 04:00:00) ?? Bili Total [0.2-1.3 mg/dL] 0.4 mg/dL (06/26/2011 04:08:00) ?? 0.3 mg/dL (06/25/2011 05:20:00) ?? 0.5 mg/dL (06/23/2011 04:00:00) ?? Bili Direct [0.0-0.3 mg/dL] 0.2 mg/dL (06/18/2011 09:26:00) ? Bili Indirect [0.0-1.0 mg/dL] 0.7 mg/dL (06/18/2011 09:26:00) ? Amylase Lvl [25-115 U/L] 39 U/L (06/20/2011 02:20:00) ? Lipase Lvl [73-393 U/L] 181 U/L (06/20/2011 02:20:00) ?? 250 U/L (06/18/2011 09:26:00) ? Lactic Acid Lvl [0.5-2.2 mMol/L] 0.5 mMol/L (06/24/2011 03:54:00) ?? 1.7 mMol/L (06/18/2011 09:26:00) ? Total CK [12-191 U/L] 63 U/L (06/18/2011 09:26:00) ? Troponin-I [0.00-0.40 ng/mL] <0.02 ng/mL (06/18/2011 09:26:00) ? Vitamin B12 Lvl [254-1320 pg/mL] 737 pg/mL (06/25/2011 05:20:00) ? Folate Lvl [>>=3.0 ng/mL] 11.9 ng/mL (06/25/2011 05:20:00) ? TSH [0.360-3.740 uIU/mL] 5.470 uIU/mL *HI* (06/19/2011 04:38:00) ? U Amph Scr [>Negative] Negative *NA* (06/18/2011 13:00:00) ? U Princess Scr [>Negative] Negative *NA* (06/18/2011 13:00:00) ? U Benzodia Scr [>Negative] Negative *NA* (06/18/2011 13:00:00) ? U Cocaine Scr [>Negative] Negative *NA* (06/18/2011 13:00:00) ? U Opiate Scr [>Negative] Positive *ABN* (06/18/2011 13:00:00) ? U Phencyc Scr [>Negative] Negative *NA* (06/18/2011 13:00:00) ? U Cannab Scr [>Negative] Negative *NA* (06/18/2011 13:00:00) ? UDS Note See Note 5 (06/18/2011 13:00:00) ? Acetaminoph Lvl [10-20] <2 (06/18/2011 09:40:00) ? Salicylate Lvl [0.0-30.0 mg/dL] 1.1 mg/dL (06/18/2011 09:40:00) ? 2Interpretive Data: Reference Ranges : 0 - 7 days : 41 - 90 mg/dL7 days - 150 yrs : 70 - 99 mg/dL (fasting), based on the clinical recommendations of the [place] [employer]. 3Interpretive Data: Reference Ranges : 0 - 7 days : 41 - 90 mg/dL7 days - 150 yrs : 70 - 99 mg/dL (fasting), based on the clinical recommendations of the [place] [employer]. 4Interpretive Data: Reference Ranges : 0 - 7 days : 41 - 90 mg/dL7 days - 150 yrs : 70 - 99 mg/dL (fasting), based on the clinical recommendations of the [place] [employer]. 5Interpretive Data: Drugs reported as positive have not been confirmed by a second method and should be used for medical purposes only. To orderconfirmation, contact laboratory. note: Below are cut-off concentrations for all urine drugs of abuse performed in the laboratory. Some drugs listed in the table may not be included in this panel.Description Cut-off concentration Amphetamine 1000 ng/mLBarbiturates 200 ng/mLBenzodiazepines 300 ng/mLCocaine metabolites 300 ng/mLOpiates 300 ng/mLPhencyclidine 25 ng/mLPropoxyphene 300 ng/mLMarijuana metabolites 50 ng/mLMethadone 300 ng/mLUrine alcohol 20 mg/dL HEMATOLOGY Most recent to oldest [Reference Range]: 1 2 3 WBC [3.7-10.4 K/CMM] 3.9 K/CMM (06/26/2011 04:08:00) ?? 5.1 K/CMM (06/25/2011 05:20:00) ?? 6.2 K/CMM (06/24/2011 03:54:00) ?? RBC [4.20-5.40 M/CMM] 2.66 M/CMM *LOW* (06/26/2011 04:08:00) ?? 3.10 M/CMM *LOW* (06/25/2011 05:20:00) ?? 2.67 M/CMM *LOW* (06/24/2011 03:54:00) ?? Hgb [12.0-16.0 g/dL] 9.9 g/dL *LOW* (06/26/2011 04:08:00) ?? 10.8 g/dL *LOW* (06/25/2011 05:20:00) ?? 9.6 g/dL *LOW* (06/24/2011 03:54:00) ?? Hct [36.0-48.0 %] 28.3 % *LOW* (06/26/2011 04:08:00) ?? 32.6 % *LOW* (06/25/2011 05:20:00) ?? 28.2 % *LOW* (06/24/2011 03:54:00) ?? MCV [81.0-99.0 fL] 106.5 fL *HI* (06/26/2011 04:08:00) ?? 105.3 fL *HI* (06/25/2011 05:20:00) ?? 105.7 fL *HI* (06/24/2011 03:54:00) ?? MCH [27.0-31.0 pg] 37.4 pg *HI* (06/26/2011 04:08:00) ?? 34.9 pg *HI* (06/25/2011 05:20:00) ?? 35.8 pg *HI* (06/24/2011 03:54:00) ?? MCHC [32.0-36.0 g/dL] 35.1 g/dL (06/26/2011 04:08:00) ?? 33.2 g/dL (06/25/2011 05:20:00) ?? 33.8 g/dL (06/24/2011 03:54:00) ?? RDW [11.5-14.5 %] 13.7 % (06/26/2011 04:08:00) ?? 13.6 % (06/25/2011 05:20:00) ?? 14.2 % (06/24/2011 03:54:00) ?? Platelet [133-450 K/CMM] 154 K/CMM (06/26/2011 04:08:00) ?? 142 K/CMM (06/25/2011 05:20:00) ?? 162 K/CMM (06/24/2011 03:54:00) ?? MPV [7.4-10.4 fL] 7.8 fL (06/26/2011 04:08:00) ?? 7.3 fL *LOW* (06/25/2011 05:20:00) ?? 7.7 fL (06/24/2011 03:54:00) ?? Segs [45.0-75.0 %] 50.2 % (06/26/2011 04:08:00) ?? 62.8 % (06/25/2011 05:20:00) ?? 53.2 % (06/24/2011 03:54:00) ?? Bands [0.0-11.0 %] 0.0 % (06/23/2011 06:34:00) ? Lymphocytes [20.0-40.0 %] 30.2 % (06/26/2011 04:08:00) ?? 21.7 % (06/25/2011 05:20:00) ?? 31.5 % (06/24/2011 03:54:00) ?? Atypical Lymphs [<<=0.0 %] 0.0 % (06/23/2011 06:34:00) ? Monocytes [2.0-12.0 %] 11.4 % (06/26/2011 04:08:00) ?? 8.9 % (06/25/2011 05:20:00) ?? 8.6 % (06/24/2011 03:54:00) ?? Eosinophils [0.0-4.0 %] 7.1 % *HI* (06/26/2011 04:08:00) ?? 6.1 % *HI* (06/25/2011 05:20:00) ?? 5.9 % *HI* (06/24/2011 03:54:00) ?? Basophils [0.0-1.0 %] 1.1 % *HI* (06/26/2011 04:08:00) ?? 0.5 % (06/25/2011 05:20:00) ?? 0.8 % (06/24/2011 03:54:00) ?? Segs-Bands # [1.5-8.1 K/CMM] 1.9 K/CMM (06/26/2011 04:08:00) ?? 3.0 K/CMM (06/25/2011 05:20:00) ?? 3.3 K/CMM (06/24/2011 03:54:00) ?? Lymphocytes # [1.0-5.5 K/CMM] 1.2 K/CMM (06/26/2011 04:08:00) ?? 1.0 K/CMM (06/25/2011 05:20:00) ?? 2.0 K/CMM (06/24/2011 03:54:00) ?? Monocytes # [0.0-0.8 K/CMM] 0.4 K/CMM (06/26/2011 04:08:00) ?? 0.4 K/CMM (06/25/2011 05:20:00) ?? 0.5 K/CMM (06/24/2011 03:54:00) ?? Eosinophils # [0.0-0.5 K/CMM] 0.3 K/CMM (06/26/2011 04:08:00) ?? 0.3 K/CMM (06/25/2011 05:20:00) ?? 0.4 K/CMM (06/24/2011 03:54:00) ?? Basophils # [0.0-0.2 K/CMM] 0.0 K/CMM (06/26/2011 04:08:00) ?? 0.0 K/CMM (06/25/2011 05:20:00) ?? 0.0 K/CMM (06/24/2011 03:54:00) ?? Macrocyte [>None Seen] 2+ *ABN* (06/26/2011 04:08:00) ?? 2+ *ABN* (06/25/2011 05:20:00) ?? 2+ *ABN* (06/24/2011 03:54:00) ?? Plt Morph Normal (06/23/2011 06:34:00) ? PT [12.0-14.7 seconds] 13.3 seconds (06/18/2011 09:26:00) ? INR [0.85-1.17] 1.01 6 (06/18/2011 09:26:00) ? PTT [22.9-35.8 seconds] 39.6 seconds 7 *HI* (06/18/2011 09:26:00) ? 6Interpretive Data: RECOMMENDED RANGES FOR PROTIME INR: 2.0-3.0 for most medical and surgical thromboembolic states. 2.5-3.5 for artificial heart valves and recurrent embolism.INR SHOULD BE USED ONLY FOR PATIENTS ON STABLE ANTICOAGULANT THERAPY. 7Interpretive Data: Heparin Therapeutic Range: 57 - 92 Seconds IMMUNOLOGY Most recent to oldest [Reference Range]: 1 2 3 Source HSV Cerebral Spinal Fluid *NA* (06/18/2011 20:01:00) ? HSV by PCR Non Det 8 (06/18/2011 20:01:00) ? HSV PCR Interp This sample was NON DETECTED or BELOW THE LOWER LIMITS OF DETECTION for HSV 1/2 DNA by real-time PCR using hybridization probe and melting curve analysis. *Unknown* (06/18/2011 20:01:00) ? 8Interpretive Data: Assay Limitation:This test result should be used as an aid in diagnosis and not be considered diagnostic alone. A single assay should not be used as the only criteria to form a clinical conclusion, but results should be correlated with serological tests, patient symptoms. A negative result does not negate the presence of the organism or active disease. If inhibitors of the polymerase chain reaction are present, an indeterminate result will be reported.The test is performed pursuant to an agreement with [employer] Analyte Specific Reagents (ASRs) are used in many laboratory tests to provide optimal medical care and generally do not require FDA approval. The performance characteristics of this test were validated my [facility]. [facility] is authorized under the Clinical Improvemnet Amendments of 1988 (CLIA 88) to perform high-complexity testing. This test has not been cleared by the U.S. Food and Drug Administration (FDA). However, FDA approval is currently not required for clinical use of this test. This test should not be considered as investigational or for research use. Microbiology Reports PROCEDURE:Ova and Parasites Conc and Tri STATUS: Auth (Verified) BODY SITE: ?? COLLECTED DATE/TIME: 06/24/2011 18:20:00 SOURCE: Stool FREE TEXT SOURCE: [place] Cup STAIN REPORTS Stain Report No Ova, Cysts Or Parasites Seen Stain Report No Ova, Cysts Or Parasites Seen PROCEDURE:Culture: Stool STATUS: Auth (Verified) BODY SITE: ?? COLLECTED DATE/TIME: 06/24/2011 12:28:00 SOURCE: Stool FREE TEXT SOURCE: cup FINAL REPORTS Final Report No Aerobic Enteric Ailyn Isolated No Salmonella, Shigella, Or Campylobacter Isol ated PRELIMINARY REPORTS Preliminary Report No Aerobic Enteric Ailyn Isolated PROCEDURE:Ova and Parasites Conc and Tri STATUS: Auth (Verified) BODY SITE: ?? COLLECTED DATE/TIME: 06/24/2011 12:28:00 SOURCE: Stool FREE TEXT SOURCE: cup STAIN REPORTS Stain Report No Ova, Cysts Or Parasites Seen Stain Report No Ova, Cysts Or Parasites Seen PROCEDURE:Culture: CSF w/Gram Stain STATUS: Auth (Verified) BODY SITE: ?? COLLECTED DATE/TIME: 06/18/2011 20:01:00 SOURCE: CSF FREE TEXT SOURCE: TUBE 3 FINAL REPORTS Final Report No Growth At 3 Days PRELIMINARY REPORTS Preliminary Report No Growth At 2 Days Preliminary Report No Growth After Overnight Incubation STAIN REPORTS Stain Report Rare Wbc'S; Many Rbc'S No Organisms Seen
--- OUTSIDE RECORDS SUMMARY | 2018-09-02 10:24 | XMS REPORT | Continuity of Care Document ---
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, left hand Active Problem 06/17/2018 Tri Najam osteoporosis-senile Active Problem 06/17/2018 Tri Najam Rheumatoid arthritis without rheumatoid factor, right hand Active Problem 06/17/2018 Tri Najam Rheumatoid arthritis Active Problem 06/17/2018 Tri Najam Anemia Active Diagnosis 06/17/2018 Tri Najam Osteoporosis Active Diagnosis 06/17/2018 Tri Najam Gastritis Active Diagnosis 06/17/2018 Tri Najam Back muscle spasm Active Diagnosis 06/17/2018 Tri Najam Chronic pain Active Diagnosis 06/17/2018 Tri Najam Low back pain Active Diagnosis 06/17/2018 Tri Najam CUAUHTEMOC positive Active Diagnosis 06/17/2018 Tri Nahanym Effusion of right olecranon bursa Active Diagnosis 06/17/2018 Tri Nahanym Pain in joint, multiple sites Active Diagnosis 12/10/2014 Tri Pollard monitorring of highrisk meds Active Diagnosis 03/17/2015 Tri Najam Pain in joint, lower leg Active Diagnosis 03/17/2015 Tricarri Masonm Counseling NOS Active Diagnosis 03/17/2015 Tri Isabellam Neck muscle spasm Active Diagnosis 06/17/2018 Tri Isabellam Accidental fall from other furniture Active Diagnosis 02/10/2015 Tri Pollard Personal history of diseases of digestive disease Active Diagnosis 03/17/2015 Tri Najam Pain in joint, hand Active Diagnosis 03/17/2015 Tricarri Masonm Cellulitis of left forearm Active Diagnosis 06/17/2018 Tri Nahanym Pain in joint of right hand Active Diagnosis 07/04/2015 Tricarri Masonm Counseling NOS Active Diagnosis 07/04/2015 Tri Pollard Pain in joint of left hand Active Diagnosis 09/20/2015 Tri Nagurjit Rash and other nonspecific skin eruption Active Diagnosis 09/20/2015 Tri Pollard Left wrist pain Active Diagnosis 07/12/2016 Tri Pollard Upper GI bleed Active Diagnosis 10/13/2015 Tri Polladr Rash Active Diagnosis 11/27/2016 Tri Pollard ABDMNAL PAIN UNSPCF SITE Active [facility] Medications Medication Details Route Status Patient Instructions Ordering Provider Order Date Source Prolia as directed Subcutaneous Active 60 MG/ML Subcutaneous Naja 06/11/2018 Tir Isabellabarber Cephalexin 1 capsule Orally Active 500 MG Orally every 12 hrs Naja 03/11/2018 Tri Atul Cimzia Prefilled inject contents of one syringe subcutaneously every two weeks Subcutaneous Active 2 X 200 MG/ML Subcutaneous 1 shot every 2 weeks Naja 09/25/2017 Tri Atul Medrol as directed Orally Active 4 MG Orally Once a day Naja 07/23/2017 Tri Atul Prolia as directed Subcutaneous Active 60 MG/ML Subcutaneous every 6 months Naja 07/14/2017 Tri Devorahhanybarber Cimzia Prefilled inject contents of one syringe subcutaneously every two weeks Subcutaneous Active 2 X 200 MG/ML Subcutaneous 1 shot every 2 weeks Naja 06/22/2017 Tri Atul Medrol as directed Orally Active 4 MG Orally daily Naja 02/13/2016 Tri Atul Leflunomide 1 tablet Orally Active 10 mg Orally Once a day Naja 01/12/2016 Tri Atul Cimzia Prefilled INJECT CONTENTS OF ONE SYRINGE SUBCUTANEOUSLY EVERY TWO WEEKS Subcutaneous Active 2 X 200 MG/ML Subcutaneous Every 2 weeks Naja 10/26/2015 Tri Nahanym Prolia as directed Subcutaneous Active 60 MG/ML Subcutaneous once SC in office every 6 months Naja 08/11/2015 Tri Pollard Cyclobenzaprine HCl 1 tablet Orally Active 5 mg Orally bedtime Naja 08/02/2015 Tri Atul Medrol (Riky) as directed Orally Active 4 MG Orally as directed Naja 06/09/2015 Tri Pollard Plaquenil 1 tablet with food or milk Orally No Longer Active 200 MG Orally Once a day Naja 05/18/2015 Tri Pollard Acetaminophen-Codeine 1 tablet as needed Orally Active 300-30 MG Orally every 6 hrs [facility] 05/18/2015 Tri Pollard Cimzia 1 Subcutaneous Active 2 X 200 MG Subcutaneous 00 mg (1 shot) every 2 weeks SC for RA [facility] 12/09/2014 Tri Pollard Nexium 1 capsule Orally Active 40 MG Orally name brand only. generic not effective for severe gerd. once daily [facility] 10/19/2014 Tri Pollard Prolia as directed Subcutaneous Active 60 MG/ML Subcutaneous once SC every 6 months in office for osteoporosis. has failed oral bisphosphonates [place] 07/06/2014 Tri Pollard moxifloxacin 400 mg oral tablet 400 mg, 1 tab, Route: PO, Drug form: TAB, [id number], Start date: 06/27/11 9:00:00, Duration: 10 day, Stop date: 07/06/11 9:00:00 PO No Longer Active [facility]2011 [facility] Flagyl 500 mg, Route: PO, Drug form: TAB, Q6H, Start date: 06/26/11 18:00:00, Duration: 30 day, Stop date: 07/26/11 12:00:00 PO No Longer Active [facility] 06/27/2011 [facility] moxifloxacin 400 mg oral tablet 400 mg, 1 tab, PO, [id number], 10 tab, Substitution Allowed, TAB PO Active [facility] 06/26/2011 [facility] Flagyl 500 mg oral tablet 500 mg, 1 tab, PO, Q6H, 40 tab, Substitution Allowed, TAB PO Active [facility] 06/26/2011 [facility] sodium bicarbonate 650 mg, 1 tab, Route: PO, Drug form: TAB, TID, Start date: 06/24/11 13:00:00, Duration: 30 day, Stop date: 07/24/11 9:00:00 PO No Longer Active Omidvar 06/24/2011 [facility] Haldol 1 mg, 1 tab, Route: PO, Drug form: TAB, TID, PRN Agitation, Start date: 06/24/11 9:39:00, Duration: 30 day, Stop date: 07/24/11 9:38:00 PO No Longer Active Omidvar 06/24/2011 [facility] MiraLax 17 gm, 1 pkt, Route: PO, Drug form: PWDR, Daily, Start date: 06/23/11 18:00:00, Duration: 30 day, Stop date: 07/23/11 9:00:00 PO No Longer Active Omidvar 06/24/2011 [facility] Haldol 1 mg, 1 tab, Route: PO, Drug form: TAB, Bedtime, PRN as needed for anxiety, Start date: 06/23/11 15:56:00, Duration: 30 day, Stop date: 07/23/11 15:55:00 PO No Longer Active Omidvar 06/23/2011 [facility] DuoNeb inhalation solution 3 ml, Route: INHALATION, Drug Form: SOLN, RQ6H, Start date: 06/23/11 11:28:00, Duration: 30 day, Stop date: 07/23/11 8:00:00 INHALATION No Longer Active Omidvar 06/23/2011 [facility] calcium gluconate 2,000 mg, 20 mL, Route: IVPB, ONCE, Start date: 06/22/11 18:15:00, Stop date: 06/22/11 18:15:00 IVPB No Longer Active Omidvar 06/23/2011 [facility] nystatin topical 100,000 units/g powder 1 appl, Route: TOP, BID, Drug form: PWDR, Start date: 06/22/11 17:00:00, Duration: 30 day, Stop date: 07/22/11 9:00:00 TOP No Longer Active Omidvar 06/22/2011 [facility] calcium gluconate 2,000 mg, 20 mL, Route: IVPB, ONCE, Start date: 06/22/11 14:00:00, Stop date: 06/22/11 14:00:00 IVPB No Longer Active Omidvar 06/22/2011 [facility] Zofran 4 mg, 2 mL, Route: IVP, Drug form: INJ, Q8H, PRN Nausea & Vomiting, Start date: 06/22/11 9:03:00, Duration: 30 day, Stop date: 07/22/11 9:02:00 IVP No Longer Active Omidvar 06/22/2011 [facility] Lovenox 40 mg, Route: SUB-Q, Daily, Start date: 06/22/11 9:00:00, Duration: 30 day, Stop date: 07/21/11 9:00:00 SUB-Q No Longer Active Omidvar 06/22/2011 [facility] senna 8.6 mg oral tablet 8.6 mg, 1 tab, Route: PO, Drug Form: TAB, Bedtime, Start date: 06/21/11 21:00:00, Duration: 30 day, Stop date: 07/20/11 21:00:00 PO No Longer Active Misty 06/22/2011 [facility] magnesium sulfate 3 gm, 6 mL, Route: IVPB, ONCE, Start date: 06/21/11 20:30:00, Stop date: 06/21/11 20:30:00 IVPB No Longer Active Kandala 06/22/2011 [facility] magnesium sulfate 4 gm, 100 mL, Route: IVPB, Drug form: INJ, ONCE, Start date: 06/21/11 17:47:00, Stop date: 06/21/11 17:47:00 IVPB No Longer Active Kandala 06/21/2011 [facility] potassium chloride 40 mEq, 2 tab, Route: PO, Drug form: ERTAB, BID, Start date: 06/21/11 17:00:00, Duration: 2 doses or times, Stop date: 06/22/11 9:00:00 PO No Longer Active Omidvar 06/21/2011 [facility] MS Contin 60 mg, 2 tab, Route: PO, Drug form: ERTAB, Q12H, D/c morphine WILL CALL CLERK one hour after MS Contin 1st dose, Start date: 06/21/11 16:00:00, Stop date: 07/21/11 9:00:00 PO No Longer Active Misty 06/21/2011 [facility] [place] 10/325 oral tablet 1 tab, Route: PO, Drug Form: TAB, Q4H, PRN Pain, Start date: 06/21/11 15:04:00, Duration: 30 day, Stop date: 07/21/11 15:03:00 PO No Longer Active Misty 06/21/2011 [facility] magnesium sulfate 1 gm, 100 mL, Route: IVPB, Drug form: INJ, ONCE, Start date: 06/21/11 9:57:00, Stop date: 06/21/11 9:57:00 IVPB No Longer Active Omidvar 06/21/2011 [facility] calcium gluconate 2,000 mg, 20 mL, Route: IVPB, Drug form: INJ, ONCE, Start date: 06/21/11 9:56:00, Stop date: 06/21/11 9:56:00 IVPB No Longer Active Omidvar 06/21/2011 [facility] calcium gluconate 1,000 mg, 10 mL, Route: IVPB, Drug form: INJ, ONCE, Start date: 06/21/11 5:31:00, Stop date: 06/21/11 5:31:00 IVPB No Longer Active Ahmed 06/21/2011 [facility] Lovenox 40 mg, 0.4 mL, Route: SUB-Q, Drug form: INJ, Daily, Start date: 06/20/11 18:00:00, Duration: 30 day, Stop date: 07/19/11 18:00:00 SUB-Q No Longer Active Omidvar 06/21/2011 [facility] naloxone 0.4 mg, 1 mL, Route: IV, Drug form: INJ, PRN, PRN Narcotic Reversal, Start date: 06/20/11 15:51:00, Duration: 30 day, Stop date: 07/20/11 15:50:00 IV No Longer Active Juan 06/20/2011 [facility] morphine Sulfate 30 mg IV, Start date: 06/20/11 15:45:00, Duration: 30, 30 ml IV No Longer Active Misty 06/20/2011 [facility] molasses 240 mL, Route: IL, Drug Form: SYRP, Every Other Day-5PM, PRN Constipation, Milk AND Molasses Enema, Start date: 06/20/11 14:20:00, Duration: 30 day, Stop date: 07/20/11 14:19:00, If dulcolax supposit ory ineffective for BMIf dulcolax suppository ineffective for BM IL No Longer Active Misty 06/20/2011 [facility] zolpidem 5 mg, Route: PO, Drug form: TAB, Bedtime, Start date: 06/19/11 21:00:00, Duration: 30 day, Stop date: 07/18/11 21:00:00 PO No Longer Active Irish 06/20/2011 [facility] ropinirole 3 mg, 3 tab, Route: PO, Drug form: TAB, Bedtime, Start date: 06/19/11 21:00:00, Duration: 30 day, Stop date: 07/18/11 21:00:00 PO No Longer Active Irish 06/20/2011 [facility] Ambien 5 mg, 1 tab, Route: PO, Drug form: TAB, Bedtime, Start date: 06/19/11 21:00:00, Duration: 30 day, Stop date: 07/18/11 21:00:00 PO No Longer Active Omidvar 06/20/2011 [facility] potassium chloride 20 mEq, 100 mL, Route: IVPB, ONCE, Start date: 06/19/11 17:47:00, Stop date: 06/19/11 17:47:00 IVPB No Longer Active Khraish 06/19/2011 [facility] Protonix 40 mg, 1 tab, Route: PO, Drug form: ECTAB, Before Dinner, Start date: 06/19/11 16:30:00, Duration: 30 day, Stop date: 07/18/11 16:30:00 PO No Longer Active Eliud 06/19/2011 [facility] morphine Sulfate 4 mg, 1 mL, Route: IVP, Drug form: INJ, Q2H, PRN Pain, Start date: 06/19/11 15:07:00, Duration: 30 day, Stop date: 07/19/11 15:06:00, IF NORCO INEFFECTIVE AFTER 90 MINUTESIF NORCO INEFFECTIVE AFTER 90 MINUTES IVP No Longer Active Misty 06/19/2011 [facility] naloxone 0.4 mg, 1 mL, Route: IV, Drug form: INJ, PRN, PRN Narcotic Reversal, Start date: 06/19/11 15:07:00, Duration: 30 day, Stop date: 07/19/11 15:06:00 IV No Longer Active Juan 06/19/2011 [facility] morphine Sulfate 30 mg IV, Start date: 06/19/11 15:05:00, 30 ml IV No Longer Active Misty 06/19/2011 [facility] Dulcolax Laxative 10 mg, 1 supp, Route: IL, Drug form: SUPP, Daily, PRN Constipation, Start date: 06/19/11 14:56:00, Duration: 30 day, Stop date: 07/19/11 14:55:00 IL No Longer Active Raoul Anguiano 06/19/2011 [facility] Compazine 5 mg, 1 mL, Route: IV, Drug form: INJ, Q4H, PRN Nausea & Vomiting, Start date: 06/19/11 14:54:00, Duration: 30 day, Stop date: 07/19/11 14:53:00 IV No Longer Active Omidvar 06/19/2011 [facility] morphine Sulfate 4 mg, 1 mL, Route: IVP, Drug form: INJ, ONCE, Start date: 06/19/11 14:46:00, Stop date: 06/19/11 14:46:00 [facility]/2011 [facility] Flagyl 500 mg, 1 tab, Route: PO, Drug form: TAB, Q6H, Start date: 06/19/11 12:00:00, Duration: 30 day, Stop date: 07/19/11 6:00:00 PO No Longer Active Reinier 06/19/2011 [facility] pneumococcal 23-valent vaccine 0.5 ml, Route: IM, Drug Form: INJ, Start date: 06/19/11 9:00:00, Stop date: 06/19/11 9:00:00 IM No Longer Active SYSTEM 06/19/2011 [facility] influenza virus vaccine, inactivated 0.5 mL, Route: IM, Drug Form: INJ, Start date: 06/19/11 9:00:00, Stop date: 06/19/11 9:00:00 IM No Longer Active SYSTEM 06/19/2011 [facility] naproxen 500 mg, 1 tab, Route: PO, Drug form: TAB, Q12H, Start date: 06/19/11 9:00:00, Duration: 30 day, Stop date: 07/18/11 21:00:00 PO No Longer Active Irish 06/19/2011 [facility] MS Contin 60 mg, 2 tab, Route: PO, Drug form: ERTAB, Q12H, Start date: 06/19/11 9:00:00, Duration: 30 day, Stop date: 07/18/11 21:00:00 PO No Longer Active Misty 06/19/2011 [facility] Inderal LA 80 mg, 1 cap, Route: PO, Drug form: ERCAP, Daily, Start date: 06/19/11 9:00:00, Duration: 30 day, Stop date: 07/18/11 9:00:00 PO No Longer Active [facility] 06/19/2011 [facility] fluoxetine 20 mg, 1 cap, Route: PO, Drug form: CAP, Daily, Start date: 06/19/11 9:00:00, Duration: 30 day, Stop date: 07/18/11 9:00:00 PO No Longer Active [facility] 06/19/2011 [facility] Diflucan 100 mg, 1 tab, Route: PO, Drug form: TAB, Daily, Start date: 06/19/11 9:00:00, Duration: 30 day, Stop date: 07/18/11 9:00:00 PO No Longer Active [facility] 06/19/2011 [facility] Neurontin 400 mg, 1 cap, Route: PO, Drug form: CAP, BID, Start date: 06/19/11 9:00:00, Duration: 30 day, Stop date: 07/18/11 17:00:00 PO No Longer Active [facility] 06/19/2011 [facility] estradiol 1 mg, 1 tab, Route: PO, Drug form: TAB, Daily, Start date: 06/19/11 9:00:00, Duration: 30 day, Stop date: 07/18/11 9:00:00 PO No Longer Active [facility] 06/19/2011 [facility] Norvasc 2.5 mg, 1 tab, Route: PO, Drug form: TAB, Daily, Start date: 06/19/11 9:00:00, Duration: 30 day, Stop date: 07/18/11 9:00:00 PO No Longer Active [facility] 06/19/2011 [facility] dipyridamole 75 mg, 1 tab, Route: PO, Drug form: TAB, BID, Start date: 06/19/11 9:00:00, Duration: 30 day, Stop date: 07/18/11 17:00:00 PO No Longer Active [facility] 06/19/2011 [facility] Nexium 40 mg, Route: PO, Drug form: CAP, Daily, Start date: 06/19/11 9:00:00, Duration: 30 day, Stop date: 07/18/11 9:00:00 PO No Longer Active [facility] 06/19/2011 [facility] sucralfate 1 gm, 1 tab, Route: PO, Drug form: TAB, QID- Before Meals, Start date: 06/19/11 7:30:00, Duration: 30 day, Stop date: 07/18/11 21:00:00 PO No Longer Active [facility] 06/19/2011 [facility] gemfibrozil 600 mg, 1 tab, Route: PO, Drug form: TAB, BID- Before Meals, Start date: 06/19/11 7:30:00, Duration: 30 day, Stop date: 07/18/11 16:30:00 PO No Longer Active [facility] 06/19/2011 [facility] Levoxyl 0.075 mg, 1 tab, Route: PO, Drug form: TAB, [id number], Start date: 06/19/11 6:30:00, Duration: 30 day, Stop date: 07/18/11 6:30:00 PO No Longer Active [facility] 06/19/2011 [facility] Ultram 50 mg oral tablet 50 mg, 1 tab, Route: PO, Drug form: TAB, Q6H, Priority: NOW, Start date: 06/19/11 5:17:00, Duration: 30 day, Stop date: 07/19/11 0:00:00 PO No Longer Active Raoul Anguiano 06/19/2011 [facility] [place] 10/325 oral tablet 1 tab, Route: PO, Drug Form: TAB, Q4H, PRN Pain, Start date: 06/19/11 5:16:00, Duration: 30 day, Stop date: 07/19/11 5:15:00 PO No Longer Active Misty 06/19/2011 [facility] sulfamethoxazole-trimethoprim 80 mg-16 mg/mL intravenous solution 200 mg, 12.5 mL, 233.33 ml/hr, Route: IVPB, [id number], for meningitis dose for listeria 10 to 20 mg/kg., NOW, Start date: 06/19/11 2:19:00, Duration: 30 day, Stop date: 07/18/11 20:19:00 IVPB No Longer Active Omidvar 06/19/2011 [facility] moxifloxacin 400 mg, 250 mL, Route: IVPB, Drug form: INJ, [id number], Priority: NOW, Start date: 06/19/11 2:15:00, Duration: 30 day, Stop date: 07/18/11 2:15:00 IVPB No Longer Active Irish 06/19/2011 [facility] morphine 45 mg/24 hours oral capsule, extended release 1 cap, Route: PO, Daily, Priority: NOW, Start date: 06/19/11 2:04:00, Duration: 30 day, Stop date: 07/18/11 9:00:00 PO No Longer Active Irish 06/19/2011 [facility] chloramphenicol 0.75 gm, Route: IV, Drug form: PDR/INJ, [id number], Start date: 06/18/11 21:30:00, Duration: 30 day, Stop date: 07/18/11 15:30:00 IV No Longer Active Raymundo 06/19/2011 [facility] hydromorphone 1 mg, 0.5 mL, Route: IVP, Drug form: INJ, ONCE, Priority: STAT, Start date: 06/18/11 21:12:00, Stop date: 06/18/11 21:12:00 IVP No Longer Active Akunyili 06/19/2011 [facility] hydromorphone 1 mg, Route: IVP, Drug form: INJ, ONCE, Priority: STAT, Start date: 06/18/11 20:24:00, Stop date: 06/18/11 20:24:00 IVP No Longer Active Akunyili 06/19/2011 [facility] chloramphenicol 2,954.55 mg, Route: IV, ONCE, Start date: 06/18/11 20:24:00, Stop date: 06/18/11 20:24:00 IV No Longer Active Raymundo 06/19/2011 [facility] potassium chloride 20 mEq, 100 mL, Route: IVPB, ONCE, Start date: 06/18/11 18:41:00, Stop date: 06/18/11 18:41:00 IVPB No Longer Active Juan 06/19/2011 [facility] acetaminophen 975 mg, 3 tab, Route: PO, Drug form: TAB, ONCE, Priority: STAT, Start date: 06/18/11 18:19:00, Stop date: 06/18/11 18:19:00 PO No Longer Active Deandre 06/19/2011 [facility] hydromorphone 1 mg, Route: IVP, ONCE, Priority: STAT, Start date: 06/18/11 18:19:00, Stop date: 06/18/11 18:19:00 IVP No Longer Active [place] 06/19/2011 [facility] chloramphenicol 738 mg, Route: IVPB, Drug form: PDR/INJ, Q6H, Start date: 06/18/11 18:00:00, Duration: 30 day, Stop date: 07/18/11 12:00:00 IVPB No Longer Active Deandre 06/19/2011 [facility] NS 1,000 mL 1,000 mL, Rate: 125 ml/hr, Infuse over: 8 hr, Route: IV, Total Volume: 1,000, Start date: 06/18/11 17:53:00, Stop date: 07/18/11 17:52:00 IV No Longer Active Omidvar 06/18/2011 [facility] NS (Bolus) IV 1,000 mL 1,000 mL, Rate: 1,000 ml/hr, Infuse over: 1 hr, Route: IV, Total Volume: 1,000, Priority: STAT, Start date: 06/18/11 17:53:00, Duration: 1 doses or times, Stop date: 06/18/11 18:52:00, Bolus DoseBolus Dose IV No Longer Active Juan 06/18/2011 [facility] NS (Bolus) IV 1,000 mL 1,000 mL, Rate: 1,000 ml/hr, Infuse over: 1 hr, Route: IV, Total Volume: 1,000, Priority: STAT, Start date: 06/18/11 17:52:00, Duration: 1 doses or times, Stop date: 06/18/11 18:51:00, Bolus DoseBolus Dose IV No Longer Active Juan 06/18/2011 [facility] vancomycin 1 gm, Route: IVPB, Drug form: INJ, ONCE, Start date: 06/18/11 17:47:00, Stop date: 06/18/11 17:47:00 IVPB No Longer Active [place] 06/18/2011 [facility] hydromorphone 1 mg, 0.5 mL, Route: IVP, Drug form: INJ, ONCE, Priority: STAT, Start date: 06/18/11 16:12:00, Stop date: 06/18/11 16:12:00 IVP No Longer Active [place] 06/18/2011 [facility] Sodium Chloride 0.9% (Bolus) IV 500 mL 500 mL, Rate: 500 ml/hr, Infuse over: 1 hr, Route: IV, Total Volume: 500, Bolus Dose, Priority: STAT, Start date: 06/18/11 15:52:00, Duration: 1 doses or times, Stop date: 06/18/11 16:51:00 IV No Longer Active [place] 06/18/2011 [facility] hydromorphone 1 mg, 0.5 mL, Route: IVP, Drug form: INJ, ONCE, Priority: STAT, Start date: 06/18/11 14:02:00, Stop date: 06/18/11 14:02:00 IVP No Longer Active [place] 06/18/2011 [facility] morphine Sulfate 4 mg, Route: IVP, ONCE, Priority: STAT, Start date: 06/18/11 13:24:00, Stop date: 06/18/11 13:24:00 IVP No Longer Active [place] 06/18/2011 [facility] Remicade Substitution Allowed No Longer Active 06/18/2011 [facility] nystatin [id number], PO, QID, Substitution Allowed, SUSP PO Active 06/18/2011 [facility] Triamcinolone Acetonide 0.1% topical creme, TOP, PRN, Substitution Allowed, CRM TOP Active 06/18/2011 [facility] Uribel oral capsule 1 cap, PO, Daily, Substitution Allowed, Maintenance, TAB PO Active 06/18/2011 [facility] Diflucan 100 mg, PO, Daily, Substitution Allowed, TAB PO Active Irish 06/18/2011 [facility] morphine Sulfate 60 mg, PO, Q12H, Substitution Allowed, ERCAP PO Active 06/18/2011 [facility] Neurontin 400 mg, PO, BID, Substitution Allowed, CAP PO Active [facility] 06/18/2011 [facility] gemfibrozil 600 mg, PO, BID, Substitution Allowed, TAB PO Active [facility] 06/18/2011 [facility] sumatriptan 100 mg, PO, PRN, Substitution Allowed, 1-2 tabs a day prn migraine, TAB1-2 tabs a day prn migraine PO Active 06/18/2011 [facility] zolpidem 5 mg, PO, Bedtime, Substitution Allowed, TAB PO Active [facility] 06/18/2011 [facility] dipyridamole 75 mg, PO, BID, Substitution Allowed, CAP PO Active [facility] 06/18/2011 [facility] ropinirole 3 mg, PO, Bedtime, Substitution Allowed, TAB PO Active [facility] 06/18/2011 [facility] Nexium 40 mg, PO, Daily, Substitution Allowed, CAP PO Active [facility] 06/18/2011 [facility] estradiol 1 mg, PO, Daily, Substitution Allowed, TAB PO Active [facility] 06/18/2011 [facility] sucralfate 1 gm, PO, QID-Before Meals, Substitution Allowed, TAB PO Active [facility] 06/18/2011 [facility] Inderal LA 80 mg, PO, Daily, Substitution Allowed, TAB PO Active [facility] 06/18/2011 [facility] Levoxyl 75 microgram, PO, Daily, Substitution Allowed, TAB PO Active [facility] 06/18/2011 [facility] Norvasc 2.5 mg, PO, Daily, Substitution Allowed, TAB PO Active [facility] 06/18/2011 [facility] fluoxetine 20 mg, PO, Daily, Substitution Allowed, CAP PO Active [facility] 06/18/2011 [facility] Sodium Chloride 0.9% (Bolus) IV 500 mL 500 mL, Rate: 500 ml/hr, Infuse over: 1 hr, Route: IV, Total Volume: 500, Bolus Dose, Priority: STAT, Start date: 06/18/11 12:06:00, Duration: 1 doses or times, Stop date: 06/18/11 13:05:00 IV No Longer Active Carrera 06/18/2011 [facility] magnesium sulfate 2 gm, 50 mL, Route: IV, Drug form: INJ, ONCE, Start date: 06/18/11 11:21:00, Stop date: 06/18/11 11:21:00 IV No Longer Active [place] 06/18/2011 [facility] potassium chloride 20 mEq, Route: IVPB, ONCE, Priority: Routine, Start date: 06/18/11 11:20:00, Stop date: 06/18/11 11:20:00 IVPB No Longer Active [place] 06/18/2011 [facility] morphine Sulfate 4 mg, 1 mL, Route: IVP, Drug form: INJ, ONCE, Priority: STAT, Start date: 06/18/11 11:04:00, Stop date: 06/18/11 11:04:00 IVP No Longer Active [place] 06/18/2011 [facility] fentanyl 100 microgram, Route: IVP, ONCE, Priority: STAT, Start date: 06/18/11 10:14:00, Stop date: 06/18/11 10:14:00 IVP No Longer Active [place] 06/18/2011 [facility] Saline Flush 0.9% 5 ml, Route: IVP, Drug Form: INJ, PRN, PRN Line Flush, Start date: 06/18/11 9:34:00, Duration: 30 day, Stop date: 07/18/11 9:33:00 IVP No Longer Active [place] 06/18/2011 [facility] Simvastatin 1 tablet in the evening Orally Active 20 MG Orally [facility] Gabapentin 1 capsule Orally Active 400 MG Orally [facility] a [facility] Ropinirole HCl 1 tablet 1 to 3 hours before bedtime Orally Active 3 MG Orally [facility] Levothyroxine Sodium 1 tablet on an empty stomach in the morning Orally Active 150 MCG Orally [facility] Triamcinolone Acetonide 1 application to affected area Externally Active 0.1 % Externally Twice a [facility] [place] HydrOXYzine HCl 1 tablet as needed Orally Active 50 MG Orally every 6 hrs [facility] Leflunomide 1 tablet Orally Active 20 MG Orally Once a day [facility] Loperamide HCl 1 capsule Orally Active 2 MG Orally 8 time(s) a day PRN Najam Tri Najam Amlodipine Besylate 1 tablet Orally Active 2.5 MG Orally Once a day Najam Tri Najam Nuvigil 1 tablet Orally Active 150 MG Orally Once a day Najam Tri Najam Cimzia Prefilled inject contents of one syringe subcutaneously every two weeks Subcutaneous Active 2 X 200 MG/ML Subcutaneous 1 shot every 2 weeks Najam Tri Najam Prolia not defined Subcutaneous Active 60 MG/ML Subcutaneous Najam Tri Najam Diclofenac Sodium not defined Transdermal Active 1 % Transdermal Najam Tri Najam Dexilant 1 capsule Orally Active 60 MG Orally Once a day Najam Tri Najam Xarelto 1 tablet with food Orally Active 20 MG Orally Once a day Najam Tri Najam Promethazine HCl 1 tablet at bedtime Orally Active 25 MG Orally Once a day PRN Najam Tri Najam Ropinirole HCl 1 tablet 1 to 3 hours before bedtime Orally Active 1 MG Orally Once a day Najam Tri Najam Dapsone 1 tablet Orally Active 25 MG Orally Once a day Najam Tri Najam Stool Softener 1 capsule as needed Orally Active 100 MG Orally Once a day Najam Tri Najam Cilostazol 1 tablet 30 minutes before or 2 hours after breakfast and dinner Orally Active 100 MG Orally Twice a day Najam Tri Najam Meclizine HCl 1 tablet as needed Orally Active 25 MG Orally Once a day PRN Najam Tri Najam Estradiol 1 tablet Orally Active 1 MG Orally Daily for Three Weeks, 1 Week off Najam Tri Najam Sucralfate 1 tablet on an empty stomach Orally Active 1 GM Orally Twice a day Najam Tri Najam Vitamin D3 as directed Orally Active 2000 UNIT Orally Najam Tri Najam Lamisil 1 tablet Orally Active Orally Once a day Najam Tri Najam Cyclobenzaprine HCl 1 tablet Orally Active 5 mg Orally bedtime Najam Tri Najam Pantoprazole Sodium 1 tablet Orally Active 40 MG Orally Once a day Najam Tri Najam Pravastatin Sodium 1 tablet Orally Active 40 MG Orally Once a day Najam Tri Najam Acetaminophen-Codeine 1 tablet as needed Orally Active 300-30 MG Orally every 6 hrs Najam Tri Najam Lamisil 1 tablet Orally Active Orally Once a day Najam Tri Najam Pravastatin Sodium 1 tablet Orally Active 40 MG Orally Once a day Najam Tri Najam Simvastatin 1 tablet in the evening Orally Active 20 MG Orally Once a day Najam Tri Najam Nuvigil 1 tablet Orally Active 150 MG Orally Once a day Najam Tri Najam Meclizine HCl 1 tablet as needed Orally Active 25 MG Orally Once a day PRN Najam Tri Najam Levothyroxine Sodium 1 tablet on an empty stomach in the morning Orally Active 150 MCG Orally Once a day Najam Tri Najam Ropinirole HCl 1 tablet 1 to 3 hours before bedtime Orally Active 3 MG Orally Once a day Najam Tri Najam Triamcinolone Acetonide 1 application to affected area Externally Active 0.1 % Externally Twice a day Najam Tri Nahanym Pantoprazole Sodium 1 tablet Orally Active 40 MG Orally Once a day Najam Tri Najam HydrOXYzine HCl 1 tablet as needed Orally Active 50 MG Orally every 6 hrs Naja Tri Nahanym Vitamin D3 as directed Orally Active 2000 UNIT Orally Nahanym Tri Nahanym Stool Softener 1 capsule as needed Orally Active 100 MG Orally Once a day Najam Tri Najam Dapsone 1 tablet Orally Active 25 MG Orally Once a day Najam Tri Najam Dexilant 1 capsule Orally Active 60 MG Orally Once a day Najam Tri Najam Cilostazol 1 tablet 30 minutes before or 2 hours after breakfast and dinner Orally Active 100 MG Orally Twice a day Najam Tri Najam Ropinirole HCl 1 tablet 1 to 3 hours before bedtime Orally Active 1 MG Orally Once a day Najam Tri Najam Estradiol 1 tablet Orally Active 1 MG Orally Daily for Three Weeks, 1 Week off Naja Tri Najam Xarelto 1 tablet with food Orally Active 20 MG Orally Once a day Najam Tri Najam Promethazine HCl 1 tablet at bedtime Orally Active 25 MG Orally Once a day PRN Najam Tri Najam Gabapentin 1 capsule Orally Active 400 MG Orally Three times a day Najam Tri Najam Amlodipine Besylate 1 tablet Orally Active 2.5 MG Orally Once a day Naja Tri Nagurjit Diclofenac Sodium not defined Transdermal Active 1 % Transdermal Nahany Tri Nahany Loperamide HCl 1 capsule Orally Active 2 MG Orally 8 time(s) a day PRN Najam Tri Nagurjit Leflunomide 1 tablet Orally Active 20 MG Orally Once a day Naja Tri Nagurjit Cyclobenzaprine HCl 1 tablet Orally Active 5 mg Orally bedtime Nahany Tri Nahany Sucralfate 1 tablet on an empty stomach Orally Active 1 GM Orally Twice a day Nahany Tri Nagurjit Prolia not defined Subcutaneous Active 60 MG/ML Subcutaneous Nahany Tri Nahany Guaifenesin-Codeine 5 ml Orally Active 100-10 MG/5ML Orally every 4 hrs Nahany Tri Nahany Acetaminophen 1 tablet as needed Orally Active 325 MG Orally every 6 hrs [place] Tri Nahany Nitrofurantoin Macrocrystal 1 capsule with food or milk Orally Active 100 MG Orally Four times a day Nahany Tri Nahany Promethazine HCl 1 tablet at bedtime Orally Active 25 MG Orally Once a day Nahany Tri Nahany Tramadol HCl 1 tablet as needed Orally Active 50 MG Orally every 6 hrs Nahany Tri Nahany Hydrocodone-Acetaminophen 1 tablet as needed Orally No Longer Active 7.5-500 MG Orally every 6 hrs Nahany Tricarri Mason Pepto-Bismol 2 tablets as needed Orally Active 262 MG Orally 8 time(s) a day Nahany Tri Nahany Mylanta 10 ml as needed Orally Active 200-200-20 MG/5ML Orally Four times a day Naja Tri Nahany Nexium 1 capsule Orally Active 40 MG Orally name brand only. generic not effective for severe gerd. once daily Najam Tri Nahanym Cefdinir 1 capsule Orally Active 300 MG Orally every 12 hrs Naja Tri Nahany Clindamycin HCl 1 capsule Orally Active 300 MG Orally every 6 hrs Naja Tri Nahanym Multivital [place] not defined NA Active Najam Tri Naja Tizanidine HCl 1 capsule as needed Orally Active 2 MG Orally Three times a day Naja Tri Nahany Omeprazole 1 capsule Orally Active 40 MG Orally Once a day Nahany Tri Nagurjit Paxil 1 tablet in the morning Orally Active 10 MG Orally Once a day [facility] Tri Nahanym Furosemide 1 tablet Orally Active 20 MG Orally Once a day [facility] Tri [place] Cyanocobalamin 1 tablet Orally Active 1000 MCG Orally Once a day Naja Tri Nahany Tessalon Perles 1 capsule as needed Orally Active 100 MG Orally Three times a day [facility] Tri N[place]any Zantac 75 1 tablet as needed Orally Active 75 MG Orally Twice a day Naja Tri Nahany Artificial Tears 1 drop into affected eye as needed Ophthalmic Active 0.2-0.2-1 % Ophthalmic 24 time(s) a day Nahany Tri Nagurjit Pataday as directed Ophthalmic Active 0.2 % Ophthalmic [facility] Tri Isabella Cholestyramine 1 packet mixed with water or non-carbonated drink Orally Active 4 GM Orally Twice a [facility] Lipitor 1 tablet Orally Active 10 MG Orally [facility] a [facility] N[place]any Guaifenesin 10 ml as needed Orally Active 100 MG/5ML Orally every 4 hrs [facility] N[facility]any Rivaroxaban 1 tablet with food Orally Active 20 MG Orally Once a day [facility] Tri N[place]any Hydrocodone-Acetaminophen 5 ml as needed Orally Active 7.5-325 MG/15ML Orally every 6 hrs [facility] Tri N[place]any Zofran 1 tablet Orally Active 8 MG Orally Twice a day [facility] N[facility] Vitamin C 1 tablet Orally Active 500 MG Orally Once a [facility] N[place]any Kaopectate 30 ml as needed Orally Active 262 MG/15ML Orally 8 time(s) a day [facility] Tri Naja Acetaminophen 1 tablet as needed Orally Active 325 MG Orally every 4 hrs [facility] Tri N[place]any Myrbetriq 1 tablet Orally Active 25 MG Orally Once a day [facility] Tri N[place]any Lomotil 1 tablet as needed Orally Active 2.5-0.025 MG Orally Four times a day Naja Tri Nahany Zantac 1 tablet at bedtime Orally Active 150 MG Orally [facility] Ferrous Sulfate 1 tablet Orally Active 325 (65 Fe) MG Orally Once a day Nagurjit Pollard Esperanza Allergy 1 tablet as needed Orally Active 180 MG Orally Once a day Atul Pollard Carafate 10 ml at bedtime on an empty stomach before meals Orally Active 1 GM/10ML Orally Twice a day Atul Masonm Allergies, Adverse Reactions, Alerts Substance Category Reaction Severity Reaction type Status Date Reported Comments Source plaquenil Adverse Reaction urticaria erythematous rash Adverse Reaction Active 06/11/2018 Tri Nahanym Aspirin Adverse Reaction Gastric Upset Adverse Reaction Active 06/11/2018 Tri Najam Penicillin Adverse Reaction anaphylaxis Adverse Reaction Active 06/11/2018 Tri Pollard Methadone Adverse Reaction Info Not Available Adverse Reaction Active 06/11/2018 Tri Pollard simponi Adverse Reaction urticaria and allergic dermatitis with oral swelling Adverse Reaction Active 06/11/2018 Tri Pollard Enbrel Adverse Reaction Info Not Available Adverse Reaction Active 06/11/2018 Tri Pollard Cymbalta Adverse Reaction Altered Mental State Adverse Reaction Active 06/11/2018 Tri Pollard Chlordiazepoxide HCl Adverse Reaction Info Not Available Adverse Reaction Active 06/11/2018 Tri Pollard Librax drug allergy Allergy Active [facility] methadone drug allergy Allergy Active [facility] penicillins drug allergy Allergy Active [facility] Immunizations Immunization Date Given Site Status Last Updated Comments Source pneumococcal 23-valent vaccine 06/19/2011 completed [facility] influenza virus vaccine, inactivated 06/19/2011 completed [facility] Results Order Name Results Value Reference Range Date Interpretation Comments Source CHEMISTRY Phosphorus 2.7 mg/dL 2.5 - 4.5 06/26/2011 Normal [facility] CHEMISTRY Total Protein 6.3 g/dL 6.4 - 8.4 06/26/2011 LOW [facility] CHEMISTRY AST 26.0 U/L 0 - 37 06/26/2011 Normal [facility] CHEMISTRY Creatinine Lvl 0.8 mg/dL 0.5 - 1.4 06/26/2011 Normal [facility] CHEMISTRY Bili Total 0.4 mg/dL 0.2 - 1.3 06/26/2011 Normal [facility] CHEMISTRY Glucose Lvl 78.0 mg/dL 06/26/2011 NA 2Interpretive Data: Reference Ranges : 0 - 7 days : 41 - 90 mg/dL7 days - 150 yrs : 70 - 99 mg/dL (fasting), based on the clinical recommendations of the [place] [employer]. [facility] CHEMISTRY Calcium Lvl 8.0 mg/dL 8.5 - 10.5 06/26/2011 LOW [facility] CHEMISTRY BUN 8.0 mg/dL 7 - 22 06/26/2011 Normal [facility] CHEMISTRY CO2 20.0 meq/L 24 - 32 06/26/2011 LOW [facility] CHEMISTRY ALT 18.0 U/L 0 - 65 06/26/2011 Normal [facility] CHEMISTRY Potassium Lvl 4.2 meq/L 3.5 - 5.1 06/26/2011 Normal [facility] CHEMISTRY Sodium Lvl 138.0 meq/L 135 - 145 06/26/2011 Normal [facility] CHEMISTRY Chloride Lvl 107.0 meq/L 95 - 109 06/26/2011 Normal [facility] CHEMISTRY Albumin Lvl 2.9 g/dL 3.5 - 5.0 06/26/2011 LOW [facility] CHEMISTRY Alk Phos 45.0 U/L 39 - 136 06/26/2011 Normal [facility] CHEMISTRY AGAP 15.2 meq/L 10.0 - 20.0 06/26/2011 Normal [facility] CHEMISTRY Globulin 3.4 g/dL 2.0 - 4.0 06/26/2011 Normal [facility] CHEMISTRY A/G Ratio 0.9 0.7 - 1.6 06/26/2011 Normal [facility] CHEMISTRY B/C Ratio 10.0 6 - 25 06/26/2011 Normal [facility] CHEMISTRY Magnesium Lvl 1.2 mg/dL 1.8 - 2.4 06/26/2011 LOW [facility] HEMATOLOGY MCV 106.5 fL 81.0 - 99.0 06/26/2011 [facility] HEMATOLOGY RDW 13.7 % 11.5 - 14.5 06/26/2011 Normal [facility] HEMATOLOGY MCH 37.4 pg 27.0 - 31.0 06/26/2011 [facility] HEMATOLOGY MCHC 35.1 g/dL 32.0 - 36.0 06/26/2011 Normal [facility] HEMATOLOGY WBC 3.9 K/CMM 3.7 - 10.4 06/26/2011 Normal [facility] HEMATOLOGY Hct 28.3 % 36.0 - 48.0 06/26/2011 [facility] HEMATOLOGY RBC 2.66 M/CMM 4.20 - 5.40 06/26/2011 [facility] HEMATOLOGY Hgb 9.9 g/dL 12.0 - 16.0 06/26/2011 [facility] HEMATOLOGY Platelet 154.0 K/CMM 133 - 450 06/26/2011 Normal [facility] HEMATOLOGY MPV 7.8 fL 7.4 - 10.4 06/26/2011 Normal [facility] HEMATOLOGY Segs-Bands # 1.9 K/CMM 1.5 - 8.1 06/26/2011 [facility] HEMATOLOGY Basophils 1.1 % 0.0 - 1.0 06/26/2011 [facility] HEMATOLOGY Monocytes # 0.4 K/CMM 0.0 - 0.8 06/26/2011 [facility] HEMATOLOGY Segs 50.2 % 45.0 - 75.0 06/26/2011 [facility] HEMATOLOGY Eosinophils 7.1 % 0.0 - 4.0 06/26/2011 [facility] HEMATOLOGY Lymphocytes # 1.2 K/CMM 1.0 - 5.5 06/26/2011 [facility] HEMATOLOGY Lymphocytes 30.2 % 20.0 - 40.0 06/26/2011 [facility] HEMATOLOGY Monocytes 11.4 % 2.0 - 12.0 06/26/2011 [facility] HEMATOLOGY Macrocyte 2+ *ABN* (06/26/2011 04:08:00) ?? >None Seen 06/26/2011 ABN [facility] HEMATOLOGY Eosinophils # 0.3 K/CMM 0.0 - 0.5 06/26/2011 Normal [facility] HEMATOLOGY Basophils # 0.0 K/CMM 0.0 - 0.2 06/26/2011 Normal [facility] CHEMISTRY Folate Lvl 11.9 ng/mL >>=3.0 06/25/2011 Normal [facility] CHEMISTRY Vitamin B12 Lvl 737.0 pg/mL 254 - 1320 06/25/2011 Normal [facility] CHEMISTRY A/G Ratio 0.8 0.7 - 1.6 06/25/2011 Normal [facility] CHEMISTRY Globulin 3.7 g/dL 2.0 - 4.0 06/25/2011 Normal [facility] CHEMISTRY B/C Ratio 14.0 6 - 25 06/25/2011 Normal [facility] CHEMISTRY AGAP 16.2 meq/L 10.0 - 20.0 06/25/2011 Normal [facility] CHEMISTRY Total Protein 6.7 g/dL 6.4 - 8.4 06/25/2011 Normal [facility] CHEMISTRY Bili Total 0.3 mg/dL 0.2 - 1.3 06/25/2011 Normal [facility] CHEMISTRY AST 32.0 U/L 0 - 37 06/25/2011 Normal [facility] CHEMISTRY Sodium Lvl 139.0 meq/L 135 - 145 06/25/2011 Normal [facility] CHEMISTRY Potassium Lvl 4.2 meq/L 3.5 - 5.1 06/25/2011 Normal [facility] CHEMISTRY Alk Phos 49.0 U/L 39 - 136 06/25/2011 Normal [facility] CHEMISTRY ALT 22.0 U/L 0 - 65 06/25/2011 Normal [facility] CHEMISTRY Albumin Lvl 3.0 g/dL 3.5 - 5.0 06/25/2011 LOW [facility] CHEMISTRY Creatinine Lvl 0.8 mg/dL 0.5 - 1.4 06/25/2011 Normal [facility] CHEMISTRY CO2 18.0 meq/L 24 - 32 06/25/2011 LOW [facility] CHEMISTRY Glucose Lvl 61.0 mg/dL 06/25/2011 NA 3Interpretive Data: Reference Ranges : 0 - 7 days : 41 - 90 mg/dL7 days - 150 yrs : 70 - 99 mg/dL (fasting), based on the clinical recommendations of the [place] [employer]. [facility] CHEMISTRY BUN 11.0 mg/dL 7 - 22 06/25/2011 Normal [facility] CHEMISTRY Chloride Lvl 109.0 meq/L 95 - 109 06/25/2011 Normal [facility] CHEMISTRY Calcium Lvl 8.2 mg/dL 8.5 - 10.5 06/25/2011 LOW [facility] HEMATOLOGY Segs-Bands # 3.0 K/CMM 1.5 - 8.1 06/25/2011 Normal [facility] HEMATOLOGY Lymphocytes # 1.0 K/CMM 1.0 - 5.5 06/25/2011 Normal [facility] HEMATOLOGY Monocytes # 0.4 K/CMM 0.0 - 0.8 06/25/2011 Normal [facility] HEMATOLOGY Eosinophils # 0.3 K/CMM 0.0 - 0.5 06/25/2011 [facility] HEMATOLOGY Basophils # 0.0 K/CMM 0.0 - 0.2 06/25/2011 [facility] HEMATOLOGY Lymphocytes 21.7 % 20.0 - 40.0 06/25/2011 Normal [facility] HEMATOLOGY Monocytes 8.9 % 2.0 - 12.0 06/25/2011 [facility] HEMATOLOGY Eosinophils 6.1 % 0.0 - 4.0 06/25/2011 [facility] HEMATOLOGY Basophils 0.5 % 0.0 - 1.0 06/25/2011 [facility] HEMATOLOGY Segs 62.8 % 45.0 - 75.0 06/25/2011 [facility] HEMATOLOGY Macrocyte 2+ *ABN* (06/25/2011 05:20:00) ?? >None Seen 06/25/2011 [facility] HEMATOLOGY Platelet 142.0 K/CMM 133 - 450 06/25/2011 [facility] HEMATOLOGY RDW 13.6 % 11.5 - 14.5 06/25/2011 [facility] HEMATOLOGY MCHC 33.2 g/dL 32.0 - 36.0 06/25/2011 [facility] HEMATOLOGY MCV 105.3 fL 81.0 - 99.0 06/25/2011 [facility] HEMATOLOGY Hct 32.6 % 36.0 - 48.0 06/25/2011 [facility] HEMATOLOGY MPV 7.3 fL 7.4 - 10.4 06/25/2011 [facility] HEMATOLOGY RBC 3.1 M/CMM 4.20 - 5.40 06/25/2011 [facility] HEMATOLOGY Hgb 10.8 g/dL 12.0 - 16.0 06/25/2011 [facility] HEMATOLOGY MCH 34.9 pg 27.0 - 31.0 06/25/2011 [facility] HEMATOLOGY WBC 5.1 K/CMM 3.7 - 10.4 06/25/2011 [facility] BACTERIAL - SEROLOGY C diff Toxin Negative (06/24/2011 18:20:00) ?? 06/25/2011 [facility] Microbiology Culture: Stool 06/24/2011 [facility] CHEMISTRY Lactic Acid Lvl 0.5 mMol/L 0.5 - 2.2 06/24/2011 Normal [facility] CHEMISTRY AGAP 16.7 meq/L 10.0 - 20.0 06/24/2011 Normal [facility] CHEMISTRY Creatinine Lvl 1.4 mg/dL 0.5 - 1.4 06/24/2011 Normal [facility] CHEMISTRY CO2 13.0 meq/L 24 - 32 06/24/2011 LOW [facility] CHEMISTRY Chloride Lvl 107.0 meq/L 95 - 109 06/24/2011 Normal [facility] CHEMISTRY Calcium Lvl 7.5 mg/dL 8.5 - 10.5 06/24/2011 LOW [facility] CHEMISTRY BUN 13.0 mg/dL 7 - 22 06/24/2011 Normal [facility] CHEMISTRY Glucose Lvl 64.0 mg/dL 06/24/2011 NA 4Interpretive Data: Reference Ranges : 0 - 7 days : 41 - 90 mg/dL7 days - 150 yrs : 70 - 99 mg/dL (fasting), based on the clinical recommendations of the [place] [employer]. [facility] CHEMISTRY Sodium Lvl 132.0 meq/L 135 - 145 06/24/2011 LOW [facility] CHEMISTRY Potassium Lvl 4.7 meq/L 3.5 - 5.1 06/24/2011 Normal [facility] HEMATOLOGY RBC 2.67 M/CMM 4.20 - 5.40 06/24/2011 [facility] HEMATOLOGY Hct 28.2 % 36.0 - 48.0 06/24/2011 LOW [facility] HEMATOLOGY Hgb 9.6 g/dL 12.0 - 16.0 06/24/2011 [facility] HEMATOLOGY MCHC 33.8 g/dL 32.0 - 36.0 06/24/2011 Normal [facility] HEMATOLOGY MCH 35.8 pg 27.0 - 31.0 06/24/2011 [facility] HEMATOLOGY Platelet 162.0 K/CMM 133 - 450 06/24/2011 Normal [facility] HEMATOLOGY RDW 14.2 % 11.5 - 14.5 06/24/2011 Normal [facility] HEMATOLOGY MCV 105.7 fL 81.0 - 99.0 06/24/2011 [facility] HEMATOLOGY MPV 7.7 fL 7.4 - 10.4 06/24/2011 Normal [facility] HEMATOLOGY WBC 6.2 K/CMM 3.7 - 10.4 06/24/2011 Normal [facility] HEMATOLOGY Lymphocytes # 2.0 K/CMM 1.0 - 5.5 06/24/2011 Normal [facility] HEMATOLOGY Eosinophils 5.9 % 0.0 - 4.0 06/24/2011 HI [facility] HEMATOLOGY Monocytes 8.6 % 2.0 - 12.0 06/24/2011 Normal [facility] HEMATOLOGY Segs-Bands # 3.3 K/CMM 1.5 - 8.1 06/24/2011 Normal [facility] HEMATOLOGY Basophils 0.8 % 0.0 - 1.0 06/24/2011 Normal [facility] HEMATOLOGY Macrocyte 2+ *ABN* (06/24/2011 03:54:00) ?? >None Seen 06/24/2011 ABN [facility] HEMATOLOGY Basophils # 0.0 K/CMM 0.0 - 0.2 06/24/2011 Normal [facility] HEMATOLOGY Monocytes # 0.5 K/CMM 0.0 - 0.8 06/24/2011 Normal [facility] HEMATOLOGY Eosinophils # 0.4 K/CMM 0.0 - 0.5 06/24/2011 Normal [facility] HEMATOLOGY Lymphocytes 31.5 % 20.0 - 40.0 06/24/2011 Normal [facility] HEMATOLOGY Segs 53.2 % 45.0 - 75.0 06/24/2011 Normal [facility] URINALYSIS UA Nitrite Negative (06/23/2011 18:12:00) ?? >Negative 06/24/2011 Normal [facility] URINALYSIS UA Leuk Est Negative (06/23/2011 18:12:00) ?? >Negative 06/24/2011 Normal [facility] URINALYSIS UA Bili Negative *NA* (06/23/2011 18:12:00) ?? >Negative 06/24/2011 NA [facility] URINALYSIS UA Blood Negative (06/23/2011 18:12:00) ?? >Negative 06/24/2011 Normal [facility] URINALYSIS UA Protein Negative mg/dL (06/23/2011 18:12:00) ?? >Negative 06/24/2011 Normal [facility] URINALYSIS UA Glucose Negative mg/dL (06/23/2011 18:12:00) ?? >Negative 06/24/2011 Normal [facility] URINALYSIS UA Ketones Negative mg/dL *NA* (06/23/2011 18:12:00) ?? >Negative 06/24/2011 NA [facility] URINALYSIS UA Urobilinogen 0.2 EU/dL 0.1 - 1.0 06/24/2011 Normal [facility] URINALYSIS UA pH 6.0 5.0 - 8.0 06/24/2011 Normal [facility] URINALYSIS UA Spec Grav 1.01 <<=1.030 06/24/2011 Normal [facility] URINALYSIS UA Color Yellow *NA* (06/23/2011 18:12:00) ?? >Yellow 06/24/2011 NA [facility] URINALYSIS UA Turbidity Clear (06/23/2011 18:12:00) ?? >Clear 06/24/2011 Normal [facility] URINALYSIS UA Sq Epi Few /LPF (06/23/2011 18:12:00) ?? >Few 06/24/2011 Normal [facility] HEMATOLOGY Plt Morph Normal (06/23/2011 06:34:00) ?? 06/23/2011 Normal [facility] HEMATOLOGY Bands 0.0 % 0.0 - 11.0 06/23/2011 Normal [facility] HEMATOLOGY Atypical Lymphs 0.0 % <<=0.0 06/23/2011 Normal [facility] CHEMISTRY Magnesium Lvl 1.9 mg/dL 1.8 - 2.4 06/23/2011 Normal [facility] CHEMISTRY Phosphorus 3.4 mg/dL 2.5 - 4.5 06/23/2011 Normal [facility] CHEMISTRY B/C Ratio 10.0 6 - 25 06/23/2011 Normal [facility] CHEMISTRY Total Protein 6.7 g/dL 6.4 - 8.4 06/23/2011 Normal [facility] CHEMISTRY Bili Total 0.5 mg/dL 0.2 - 1.3 06/23/2011 Normal [facility] CHEMISTRY AST 26.0 U/L 0 - 37 06/23/2011 Normal [facility] CHEMISTRY A/G Ratio 0.9 0.7 - 1.6 06/23/2011 Normal [facility] CHEMISTRY Globulin 3.5 g/dL 2.0 - 4.0 06/23/2011 Normal [facility] CHEMISTRY Alk Phos 46.0 U/L 39 - 136 06/23/2011 Normal [facility] CHEMISTRY Albumin Lvl 3.2 g/dL 3.5 - 5.0 06/23/2011 LOW [facility] CHEMISTRY ALT 19.0 U/L 0 - 65 06/23/2011 Normal [facility] CHEMISTRY Phosphorus 2.7 mg/dL 2.5 - 4.5 06/22/2011 Normal [facility] CHEMISTRY Magnesium Lvl 2.5 mg/dL 1.8 - 2.4 06/22/2011 [facility] CHEMISTRY Amylase Lvl 39.0 U/L 25 - 115 06/20/2011 Normal [facility] CHEMISTRY Lipase Lvl 181.0 U/L 73 - 393 06/20/2011 Normal [facility] CHEMISTRY TSH 5.47 uIU/mL 0.360 - 3.740 06/19/2011 [facility] BEDSIDE GLUCOSE TESTING Comment1 Notify RN/MD 06/19/2011 NA [facility] BEDSIDE GLUCOSE TESTING Gluc POC Lifscn 130.0 mg/dL 65 - 110 06/19/2011 [place] 1Interpretive Data: Upper Reportable Limit: 200 mg/dL. [facility] BODY FLUIDS Protein CSF 51.0 mg/dL 15 - 45 06/19/2011 [facility] BODY FLUIDS Glucose CSF 67.0 mg/dL 45 - 80 06/19/2011 Normal [facility] BODY FLUIDS WBC CSF 1.0 /mm3 0 - 5 06/19/2011 Normal [facility] BODY FLUIDS Supernat CSF Colorless (06/18/2011 20:01:00) ?? >Colorless 06/19/2011 Normal [facility] BODY FLUIDS Clarity CSF Clear (06/18/2011 20:01:00) ?? >Clear 06/19/2011 Normal [facility] BODY FLUIDS Tube Num CSF 4.0 06/19/2011 NA [facility] BODY FLUIDS Color CSF Colorless (06/18/2011 20:01:00) ?? >Colorless 06/19/2011 Normal [facility] BODY FLUIDS Comment CSF Differential not performed on WBC count of less than 5. 06/19/2011 NA [facility] BODY FLUIDS RBC CSF 490.0 /mm3 0 - 0 06/19/2011 HI [facility] BODY FLUIDS Tube Num CSF 1.0 06/19/2011 NA [facility] BODY FLUIDS WBC CSF 2.0 /mm3 0 - 5 06/19/2011 Normal [facility] BODY FLUIDS RBC CSF 700.0 /mm3 0 - 0 06/19/2011 HI [facility] BODY FLUIDS Color CSF Colorless (06/18/2011 20:01:00) ?? >Colorless 06/19/2011 Normal [facility] BODY FLUIDS Clarity CSF Slight *ABN* (06/18/2011 20:01:00) ?? >Clear 06/19/2011 ABN [facility] BODY FLUIDS Supernat CSF Colorless (06/18/2011 20:01:00) ?? >Colorless 06/19/2011 Normal [facility] BODY FLUIDS Comment CSF Differential not performed on WBC count of less than 5. 06/19/2011 NA [facility] IMMUNOLOGY HSV PCR Interp This sample was NON DETECTED or BELOW THE LOWER LIMITS OF DETECTION for HSV 1/2 DNA by real-time PCR using hybridization probe and melting curve analysis. 06/19/2011 Unknown [facility] IMMUNOLOGY Source HSV Cerebral Spinal Fluid 06/19/2011 NA [facility] IMMUNOLOGY HSV by PCR Non Det 8 (06/18/2011 20:01:00) ?? 06/19/2011 Normal 8Interpretive Data: Assay Limitation:This test result should [...] is performed pursuant to an agreement with [employer] Analyte Specific Reagents (ASRs) are used in many laboratory tests to provide optimal medical care and generally do not require FDA approval. The performance characteristics of this test were validated my [facility]. [facility] is authorized under the Clinical [employer] Amendments of 1988 (CLIA 88) to perform high-complexity testing. This test has not been cleared by the U.S. Food and Drug Administration (FDA). However, FDA approval is currently not required for clinical use of this test. This test should not be considered as investigational or for research use. [facility] Microbiology Culture: CSF w/Gram Stain 06/19/2011 [facility] URINALYSIS UA Bacteria None Seen (06/18/2011 15:15:00) ?? >None Seen 06/18/2011 Normal [facility] URINALYSIS UA WBC 0-2 /HPF (06/18/2011 15:15:00) ?? >None Seen 06/18/2011 Normal [facility] URINALYSIS UA Mucus None Seen (06/18/2011 15:15:00) ?? >None Seen 06/18/2011 Normal [facility] URINALYSIS UA RBC None Seen (06/18/2011 15:15:00) ?? >0 - 2 06/18/2011 Normal [facility] URINALYSIS UA Sq Epi Rare /LPF (06/18/2011 15:15:00) ?? >Few 06/18/2011 Normal [facility] URINALYSIS Micro? Performed (06/18/2011 15:15:00) ?? 06/18/2011 Normal [facility] URINALYSIS UA Color Yellow *NA* (06/18/2011 15:15:00) ?? >Yellow 06/18/2011 NA [facility] URINALYSIS UA Turbidity Clear (06/18/2011 15:15:00) ?? >Clear 06/18/2011 Normal [facility] URINALYSIS UA Bili Negative *NA* (06/18/2011 15:15:00) ?? >Negative 06/18/2011 NA [facility] URINALYSIS UA Ketones Trace *ABN* (06/18/2011 15:15:00) ?? >Negative 06/18/2011 ABN [facility] URINALYSIS UA Leuk Est Negative (06/18/2011 15:15:00) ?? >Negative 06/18/2011 Normal [facility] URINALYSIS UA Glucose Negative (06/18/2011 15:15:00) ?? >Negative 06/18/2011 Normal [facility] URINALYSIS UA Protein Trace *ABN* (06/18/2011 15:15:00) ?? >Negative 06/18/2011 ABN [facility] URINALYSIS UA pH 6.0 5.0 - 8.0 06/18/2011 Normal [facility] URINALYSIS UA Nitrite Negative (06/18/2011 15:15:00) ?? >Negative 06/18/2011 Normal [facility] URINALYSIS UA Blood Trace *ABN* (06/18/2011 15:15:00) ?? >Negative 06/18/2011 ABN [facility] URINALYSIS UA Urobilinogen 0.2 EU/dL 0.1 - 1.0 06/18/2011 Normal [facility] URINALYSIS UA Spec Grav 1.01 <<=1.030 06/18/2011 Normal [facility] CHEMISTRY U Opiate Scr Positive *ABN* (06/18/2011 13:00:00) ?? >Negative 06/18/2011 ABN [facility] CHEMISTRY UDS Note See Note 5 (06/18/2011 13:00:00) ?? 06/18/2011 Normal 5Interpretive Data: Drugs reported as positive have [...] 50 ng/mLMethadone 300 ng/mLUrine alcohol 20 mg/dL [facility] CHEMISTRY U Amph Scr Negative *NA* (06/18/2011 13:00:00) ?? >Negative 06/18/2011 NA [facility] CHEMISTRY U Phencyc Scr Negative *NA* (06/18/2011 13:00:00) ?? >Negative 06/18/2011 NA [facility] CHEMISTRY U Cannab Scr Negative *NA* (06/18/2011 13:00:00) ?? >Negative 06/18/2011 NA [facility] CHEMISTRY U Princess Scr Negative *NA* (06/18/2011 13:00:00) ?? >Negative 06/18/2011 NA [facility] CHEMISTRY U Benzodia Scr Negative *NA* (06/18/2011 13:00:00) ?? >Negative 06/18/2011 NA [facility] CHEMISTRY U Cocaine Scr Negative *NA* (06/18/2011 13:00:00) ?? >Negative 06/18/2011 NA [facility] CHEMISTRY Acetaminoph Lvl <2
(06/18/2011 09:40:00) <sup>??</sup> 10 - 20 06/18/2011 Normal [facility] CHEMISTRY Salicylate Lvl 1.1 mg/dL 0.0 - 30.0 06/18/2011 Normal [facility] CHEMISTRY Troponin-I null 0.00 - 0.40 06/18/2011 Normal [facility] CHEMISTRY Bili Indirect 0.7 mg/dL 0.0 - 1.0 06/18/2011 Normal [facility] CHEMISTRY Bili Direct 0.2 mg/dL 0.0 - 0.3 06/18/2011 Normal [facility] CHEMISTRY Lipase Lvl 250.0 U/L 73 - 393 06/18/2011 Normal [facility] CHEMISTRY Lactic Acid Lvl 1.7 mMol/L 0.5 - 2.2 06/18/2011 Normal [facility] CHEMISTRY Total CK 63.0 U/L 12 - 191 06/18/2011 Normal [facility] HEMATOLOGY PT 13.3 s 12.0 - 14.7 06/18/2011 Normal [facility] HEMATOLOGY PTT 39.6 s 22.9 - 35.8 06/18/2011 HI 7Interpretive Data: Heparin Therapeutic Range: 57 - 92 Seconds [facility] HEMATOLOGY INR 1.01 0.85 - 1.17 06/18/2011 Normal 6Interpretive Data: RECOMMENDED RANGES FOR PROTIME INR: 2.0-3.0 for most medical and surgical thromboembolic states. 2.5-3.5 for artificial heart valves and recurrent embolism.INR SHOULD BE USED ONLY FOR PATIENTS ON STABLE ANTICOAGULANT THERAPY. [facility] Vital Signs Vital Sign Value Date Comments Source Height 63 06/11/2018 [facility] Diastolic (mm Hg) 62 06/11/2018 [facility] Systolic (mm Hg) 106 06/11/2018 [facility] Weight 128.8 06/11/2018 [facility] Height 63 03/11/2018 [facility] Diastolic (mm Hg) 60 03/11/2018 [facility] Systolic (mm Hg) 124 03/11/2018 [facility] Weight 135 03/11/2018 [facility] Height 63 10/22/2017 [facility] Diastolic (mm Hg) 53 10/22/2017 [facility] Systolic (mm Hg) 110 10/22/2017 [facility] Weight 127.6 10/22/2017 [facility] Height 63 07/23/2017 [facility] Diastolic (mm Hg) 46 07/23/2017 [facility] Systolic (mm Hg) 82 07/23/2017 [facility] Weight 126 07/23/2017 [facility] Height 63 05/06/2017 [facility] Diastolic (mm Hg) 62 05/06/2017 [facility] Systolic (mm Hg) 118 05/06/2017 [facility] Weight 128 05/06/2017 [facility] Height 63 01/16/2017 [facility] Diastolic (mm Hg) 83 01/16/2017 [facility] Systolic (mm Hg) 128 01/16/2017 [facility] Weight 116 01/16/2017 [facility] Height 63 12/24/2016 [facility] Diastolic (mm Hg) 59 12/24/2016 [facility] Systolic (mm Hg) 99 12/24/2016 [facility] Weight 121.8 12/24/2016 [facility] Height 63 12/10/2016 [facility] Diastolic (mm Hg) 71 12/10/2016 [facility] Systolic (mm Hg) 119 12/10/2016 [facility] Weight 121 12/10/2016 [facility] Height 63 11/26/2016 [facility] Diastolic (mm Hg) 69 11/26/2016 [facility] Systolic (mm Hg) 121 11/26/2016 [facility] Weight 123.4 11/26/2016 [facility] Height 63 10/10/2016 [facility] Diastolic (mm Hg) 92 10/10/2016 [facility] Systolic (mm Hg) 146 10/10/2016 [facility] Weight 129.4 10/10/2016 [facility] Height 63 07/11/2016 [facility] Diastolic (mm Hg) 67 07/11/2016 [facility] Systolic (mm Hg) 134 07/11/2016 [facility] Weight 135 07/11/2016 [facility] Height 63 06/18/2016 [facility] Diastolic (mm Hg) 69 06/18/2016 [facility] Systolic (mm Hg) 148 06/18/2016 [facility] Weight 131.4 06/18/2016 [facility] Height 63 02/13/2016 [facility] Diastolic (mm Hg) 83 02/13/2016 [facility] Systolic (mm Hg) 144 02/13/2016 [facility] Weight 131.6 02/13/2016 [facility] Height 63 10/12/2015 [facility] Diastolic (mm Hg) 72 10/12/2015 [facility] Systolic (mm Hg) 120 10/12/2015 [facility] Weight 135.6 10/12/2015 [facility] Height 63 09/19/2015 [facility] Diastolic (mm Hg) 72 09/19/2015 [facility] Systolic (mm Hg) 139 09/19/2015 [facility] Weight 133 09/19/2015 [facility] Height 63 08/02/2015 [facility] Diastolic (mm Hg) 69 08/02/2015 [facility] Systolic (mm Hg) 143 08/02/2015 [facility] Weight 138.0 08/02/2015 [facility] Height 63 07/03/2015 [facility] Diastolic (mm Hg) 85 07/03/2015 [facility] Systolic (mm Hg) 165 07/03/2015 [facility] Weight 141.4 07/03/2015 [facility] Height 63 03/15/2015 [facility] Diastolic (mm Hg) 70 03/15/2015 [facility] Systolic (mm Hg) 133 03/15/2015 [facility] Weight 131 03/15/2015 [facility] Height 63 02/08/2015 [facility] Diastolic (mm Hg) 80 02/08/2015 [facility] Systolic (mm Hg) 142 02/08/2015 [facility] Weight 132.2 02/08/2015 [facility] Height 63 12/09/2014 [facility] Diastolic (mm Hg) 69 12/09/2014 [facility] Systolic (mm Hg) 121 12/09/2014 [facility] Weight 134 12/09/2014 [facility] Heart Rate 119.0 06/26/2011 [facility] Respitory Rate 18.0 06/26/2011 [facility] Systolic (mm Hg) 105.0 06/26/2011 [facility] Temperature Oral (F) 98.1 F 06/26/2011 [facility] Diastolic (mm Hg) 68.0 06/26/2011 [facility] Diastolic (mm Hg) 55.0 06/26/2011 [facility] Systolic (mm Hg) 94.0 06/26/2011 [facility] Respitory Rate 20.0 06/26/2011 [facility] Heart Rate 63.0 06/26/2011 [facility] Temperature Oral (F) 98.1 F 06/26/2011 [facility] Respitory Rate 20.0 06/26/2011 [facility] Systolic (mm Hg) 127.0 06/26/2011 [facility] Heart Rate 61.0 06/26/2011 [facility] Diastolic (mm Hg) 73.0 06/26/2011 [facility] Temperature Oral (F) 98.2 F 06/26/2011 [facility] Weight 59.091 06/18/2011 [facility] Height 162.56 cm 06/18/2011 [facility] Encounters Location Location Details Encounter Type Encounter Number Reason For Visit Attending Provider ADM Date DC Date Status Source [facility] Inpatient [id number] EUNICE WILCOXIDVAR 06/18/2011 06/26/2011 Active [facility] simponi injection we use our samples [id number] 10/19/2014 10/19/2014 [facility] simponi injection we use our samples [id number] 10/19/2014 10/19/2014 [facility] simponi injection we use our samples [id number] 10/19/2014 10/19/2014 [facility] simponi injection we use our samples [id number] 10/19/2014 10/19/2014 [facility] simponi injection we use our samples [id number] 10/19/2014 10/19/2014 [facility] simponi injection we use our samples [id number] 10/19/2014 10/19/2014 [facility] simponi injection we use our samples [id number] 10/19/2014 10/19/2014 [facility] simponi injection we use our samples [id number] 10/19/2014 10/19/2014 [facility] simponi injection we use our samples [id number] 10/19/2014 10/19/2014 [facility] simponi injection we use our samples [id number] 10/19/2014 10/19/2014 [facility] simponi injection we use our samples [id number] 10/19/2014 10/19/2014 [facility] simponi injection we use our samples [id number] 10/19/2014 10/19/2014 [facility] simponi injection we use our samples [id number] 10/19/2014 10/19/2014 [facility] simponi injection we use our samples [id number] 10/19/2014 10/19/2014 [facility] simponi injection we use our samples [id number] 10/19/2014 10/19/2014 [facility] simponi injection we use our samples [id number] 10/19/2014 10/19/2014 [facility] simponi injection we use our samples [id number] 10/19/2014 10/19/2014 [facility] simponi injection we use our samples [id number] 10/19/2014 10/19/2014 [facility] simponi injection we use our samples [id number] 10/19/2014 10/19/2014 [facility] simponi injection we use our samples [id number] 10/19/2014 10/19/2014 [facility] simponi injection we use our samples [id number] 10/19/2014 10/19/2014 [facility] simponi injection we use our samples [id number] 10/19/2014 10/19/2014 [facility] simponi injection we use our samples [id number] 10/19/2014 10/19/2014 [facility] Cimzia injection [id number] 11/10/2014 11/10/2014 [facility] injection [id number] 11/10/2014 11/10/2014 [facility] injection [id number] 11/10/2014 11/10/2014 [facility] injection [id number] 11/10/2014 11/10/2014 [facility] injection [id number] 11/10/2014 11/10/2014 [facility] C[facility] injection [id number] 11/10/2014 11/10/2014 [facility] injection [id number] 11/10/2014 11/10/2014 [facility] injection [id number] 11/10/2014 11/10/2014 [facility] injection [id number] 11/10/2014 11/10/2014 [facility] injection [id number] 11/10/2014 11/10/2014 [facility] injection [id number] 11/10/2014 11/10/2014 [facility] injection [id number] 11/10/2014 11/10/2014 [facility] injection [id number] 11/10/2014 11/10/2014 [facility] injection [id number] 11/10/2014 11/10/2014 [facility] injection [id number] 11/10/2014 11/10/2014 [facility] injection [id number] 11/10/2014 11/10/2014 [facility] injection [id number] 11/10/2014 11/10/2014 [facility] injection [id number] 11/10/2014 11/10/2014 [facility] injection [id number] 11/10/2014 11/10/2014 [facility] injection [id number] 11/10/2014 11/10/2014 [facility] injection [id number] 11/10/2014 11/10/2014 [facility] injection [id number] 11/10/2014 11/10/2014 [facility] injection [id number] 11/10/2014 11/10/2014 [facility] [id number] 11/21/2014 11/21/2014 [facility] [id number] 11/21/2014 11/21/2014 [facility] [id number] 11/21/2014 11/21/2014 [facility] [id number] 11/21/2014 11/21/2014 [facility] [id number] 11/21/2014 11/21/2014 [facility] [id number] 11/21/2014 11/21/2014 [facility] [id number] 11/21/2014 11/21/2014 [facility] [id number] 11/21/2014 11/21/2014 [facility] [id number] 11/21/2014 11/21/2014 [facility] [id number] 11/21/2014 11/21/2014 [facility] [id number] 11/21/2014 11/21/2014 [facility] [id number] 11/21/2014 11/21/2014 [facility] [id number] 11/21/2014 11/21/2014 [facility] [id number] 11/21/2014 11/21/2014 [facility] [id number] 11/21/2014 11/21/2014 [facility] [id number] 11/21/2014 11/21/2014 [facility] [id number] 11/21/2014 11/21/2014 [facility] [id number] 11/21/2014 11/21/2014 [facility] [id number] 11/21/2014 11/21/2014 [facility] [id number] 11/21/2014 11/21/2014 [facility] [id number] 11/21/2014 11/21/2014 [facility] routine follow up [id number] 12/09/2014 12/09/2014 [facility] routine follow up [id number] 12/09/2014 12/09/2014 [facility] routine follow up [id number] 12/09/2014 12/09/2014 [facility] routine follow up [id number] 12/09/2014 12/09/2014 [facility] routine follow up [id number] 12/09/2014 12/09/2014 [facility] routine follow up [id number] 12/09/2014 12/09/2014 [facility] routine follow up [id number] 12/09/2014 12/09/2014 [facility] routine follow up [id number] 12/09/2014 12/09/2014 [facility] routine follow up [id number] 12/09/2014 12/09/2014 [facility] routine follow up [id number] 12/09/2014 12/09/2014 [facility] routine follow up [id number] 12/09/2014 12/09/2014 [facility] routine follow up [id number] 12/09/2014 12/09/2014 [facility] routine follow up [id number] 12/09/2014 12/09/2014 [facility] routine follow up [id number] 12/09/2014 12/09/2014 [facility] routine follow up [id number] 12/09/2014 12/09/2014 [facility] routine follow up [id number] 12/09/2014 12/09/2014 [facility] routine follow up [id number] 12/09/2014 12/09/2014 [facility] routine follow up [id number] 12/09/2014 12/09/2014 [facility] routine follow up [id number] 12/09/2014 12/09/2014 [facility] routine follow up [id number] 12/09/2014 12/09/2014 [facility] routine follow up [id number] 12/09/2014 12/09/2014 [facility] routine follow up [id number] 12/09/2014 12/09/2014 [facility] routine follow up [id number] 12/09/2014 12/09/2014 [facility] Follow up [id number] 01/09/2015 01/09/2015 [facility] Follow up [id number] 01/09/2015 01/09/2015 [facility] Follow up [id number] 01/09/2015 01/09/2015 [facility] Follow up [id number] 01/09/2015 01/09/2015 [facility] Follow up [id number] 01/09/2015 01/09/2015 [facility] Follow up [id number] 01/09/2015 01/09/2015 [facility] Follow up [id number] 01/09/2015 01/09/2015 [facility] Follow up [id number] 01/09/2015 01/09/2015 [facility] Follow up [id number] 01/09/2015 01/09[place]2015 [facility] [facility] Follow up [id number] 01/09/2015 01/09/2015 [facility] Follow up [id number] 01/09/2015 01/09/2015 [facility] Follow up [id number] 01/09/2015 01/09/2015 [facility] Follow up [id number] 01/09/2015 01/09/2015 [facility] Follow up [id number] 01/09/2015 01/09/2015 [facility] Follow up [id number] 01/09/2015 01/09/2015 [facility] Follow up [id number] 01/09/2015 01/09/2015 [facility] Follow up [id number] 01/09/2015 01/09/2015 [facility] Follow up [id number] 01/09/2015 01/09/2015 [facility] Follow up [id number] 01/09/2015 01/09/2015 [facility] Follow up [id number] 01/09/2015 01/09/2015 [facility] Follow up [id number] 01/09/2015 01/09/2015 [facility] Follow up [id number] 01/09/2015 01/09/2015 [facility] routine follow up [id number] 02/08/2015 02/08/2015 [facility] routine follow up [id number] 02/08/2015 02/08/2015 [facility] routine follow up [id number] 02/08/2015 02/08/2015 [facility] routine follow up [id number] 02/08/2015 02/08/2015 [facility] routine follow up [id number] 02/08/2015 02/08/2015 [facility] routine follow up [id number] 02/08/2015 02/08/2015 [facility] routine follow up [id number] 02/08/2015 02/08/2015 [facility] routine follow up [id number] 02/08/2015 02/08/2015 [facility] routine follow up [id number] 02/08/2015 02/08/2015 [facility] routine follow up [id number] 02/08/2015 02/08/2015 [facility] routine follow up [id number] 02/08/2015 02/08/2015 [facility] routine follow up [id number] 02/08/2015 02/08/2015 [facility] routine follow up [id number] 02/08/2015 02/08/2015 [facility] routine follow up [id number] 02/08/2015 02/08/2015 [facility] routine follow up [id number] 02/08/2015 02/08/2015 [facility] routine follow up [id number] 02/08/2015 02/08/2015 [facility] routine follow up [id number] 02/08/2015 02/08/2015 [facility] routine follow up [id number] 02/08/2015 02/08/2015 [facility] routine follow up [id number] 02/08/2015 02/08/2015 [facility] routine follow up [id number] 02/08/2015 02/08/2015 [facility] routine follow up [id number] 02/08/2015 02/08/2015 [facility] routine follow up [id number] 02/08/2015 02/08/2015 [facility] mri [id number] 02/13/2015 02/13/2015 [facility] mri [id number] 02/13/2015 02/13/2015 [facility] mri [id number] 02/13/2015 02/13/2015 [facility] mri [id number] 02/13/2015 02/13/2015 [facility] mri [id number] 02/13/2015 02/13/2015 [facility] mri [id number] 02/13/2015 02/13/2015 [facility] mri [id number] 02/13/2015 02/13/2015 [facility] mri [id number] 02/13/2015 02/13/2015 [facility] mri [id number] 02/13/2015 02/13/2015 [facility] mri [id number] 02/13/2015 02/13/2015 [facility] mri [id number] 02/13/2015 02/13/2015 [facility] mri [id number] 02/13/2015 02/13/2015 [facility] mri [id number] 02/13/2015 02/13/2015 [facility] mri [id number] 02/13/2015 02/13/2015 [facility] mri [id number] 02/13/2015 02/13/2015 [facility] mri [id number] 02/13/2015 02/13/2015 [facility] mri [id number] 02/13/2015 02/13/2015 [facility] mri [id number] 02/13/2015 02/13/2015 [facility] mri [id number] 02/13/2015 02/13/2015 [facility] mri [id number] 02/13/2015 02/13/2015 [facility] mri [id number] 02/13/2015 02/13/2015 [facility] mri [id number] 02/13/2015 02/13/2015 [facility] MRI results [id number] 02/15/2015 02/15/2015 [facility] MRI results [id number] 02/15/2015 02/15/2015 [facility] MRI results [id number] 02/15/2015 02/15/2015 [facility] MRI results [id number] 02/15/2015 02/15/2015 [facility] MRI results [id number] 02/15/2015 02/15/2015 [facility] MRI results [id number] 02/15/2015 02/15/2015 [facility] MRI results [id number] 02/15/2015 02/15/2015 [facility] MRI results [id number] 02/15/2015 02/15/2015 [facility] MRI results [id number] 02/15/2015 02/15/2015 [facility] MRI results [id number] 02/15/2015 02/15/2015 [facility] MRI results [id number] 02/15/2015 02/15/2015 [facility] MRI results [id number] 02/15/2015 02/15/2015 [facility] MRI results [id number] 02/15/2015 02/15/2015 [facility] MRI results [id number] 02/15/2015 02/15/2015 [facility] MRI results [id number] 02/15/2015 02/15/2015 [facility] MRI results [id number] 02/15/2015 02/15/2015 [facility] MRI results [id number] 02/15/2015 02/15/2015 [facility] MRI results [id number] 02/15/2015 02/15/2015 [facility] MRI results [id number] 02/15/2015 02/15/2015 [facility] MRI results [id number] 02/15/2015 02/15/2015 [facility] MRI results [id number] 02/15/2015 02/15/2015 [facility] MRI results [id number] 02/16/2015 02/16/2015 [facility] MRI results [id number] 02/16/2015 02/16/2015 [facility] MRI results [id number] 02/16/2015 02/16/2015 [facility] MRI results [id number] 02/16/2015 02/16/2015 [facility] MRI results [id number] 02/16/2015 02/16/2015 [facility] MRI results [id number] 02/16/2015 02/16/2015 [facility] MRI results [id number] 02/16/2015 02/16/2015 [facility] MRI results [id number] 02/16/2015 02/16/2015 [facility] MRI results [id number] 02/16/2015 02/16/2015 [facility] MRI results [id number] 02/16/2015 02/16/2015 [facility] MRI results [id number] 02/16/2015 02/16/2015 [facility] MRI results [id number] 02/16/2015 02/16/2015 [facility] MRI results [id number] 02/16/2015 02/16/2015 [facility] MRI results [id number] 02/16/2015 02/16/2015 [facility] MRI results [id number] 02/16/2015 02/16/2015 [facility] MRI results [id number] 02/16/2015 02/16/2015 [facility] MRI results [id number] 02/16/2015 02/16/2015 [facility] MRI results [id number] 02/16/2015 02/16/2015 [facility] MRI results [id number] 02/16/2015 02/16/2015 [facility] MRI results [id number] 02/16/2015 02/16/2015 [facility] MRI results [id number] 02/16/2015 02/16/2015 [facility] RX [id number] 02/16/2015 02/16/2015 [facility]ace RX [id number] 02/16/2015 02/16/2015 [facility] RX [id number] 02/16/2015 02/16/2015 [facility]ace RX [id number] 02/16/2015 02/16/2015 [facility]ace RX [id number] 02/16/2015 02/16/2015 [facility] Brace RX [id number] 02/16/2015 02/16/2015 [facility] Hand Brace RX [id number] 02/16/2015 02/16/2015 [facility] Hand Brace RX [id number] 02/16/2015 02/16/2015 [facility] Hand Brace RX [id number] 02/16/2015 02/16/2015 [facility] Hand Brace RX [id number] 02/16/2015 02/16/2015 [facility] Hand Brace RX [id number] 02/16/2015 02/16/2015 [facility] Hand Brace RX [id number] 02/16/2015 02/16/2015 [facility] Hand Brace RX [id number] 02/16/2015 02/16/2015 [facility] Hand Brace RX [id number] 02/16/2015 02/16/2015 [facility] Hand Brace RX [id number] 02/16/2015 02/16/2015 [facility] Hand Brace RX [id number] 02/16/2015 02/16/2015 [facility] Hand Brace RX [id number] 02/16/2015 02/16/2015 [facility] Hand Brace RX [id number] 02/16/2015 02/16/2015 [facility] Brace RX [id number] 02/16/2015 02/16/2015 [facility] Brace RX [id number] 02/16/2015 02/16/2015 [facility] Brace RX [id number] 02/16/2015 02/16/2015 [facility] new med follow up [id number] 03/15/2015 03/15/2015 [facility] new med follow up [id number] 03/15/2015 03/15/2015 [facility] new med follow up [id number] 03/15/2015 03/15/2015 [facility] new med follow up [id number] 03/15/2015 03/15/2015 [facility] new med follow up [id number] 03/15/2015 03/15/2015 [facility] new med follow up [id number] 03/15/2015 03/15/2015 [facility] new med follow up [id number] 03/15/2015 03/15/2015 [facility] new med follow up [id number] 03/15/2015 03/15/2015 [facility] new med follow up [id number] 03/15/2015 03/15/2015 [facility] new med follow up [id number] 03/15/2015 03/15/2015 [facility] new med follow up [id number] 03/15/2015 03/15/2015 [facility] new med follow up [id number] 03/15/2015 03/15/2015 [facility] new med follow up [id number] 03/15/2015 03/15/2015 [facility] new med follow up [id number] 03/15/2015 03/15/2015 [facility] new med follow up [id number] 03/15/2015 03/15/2015 [facility] new med follow up [id number] 03/15/2015 03/15/2015 [facility] new med follow up [id number] 03/15/2015 03/15/2015 [facility] routine fup [id number] 04/18/2015 04/18/2015 [facility] routine fup [id number] 04/18/2015 04/18/2015 [facility] routine fup [id number] 04/18/2015 04/18/2015 [facility] routine fup [id number] 04/18/2015 04/18/2015 [facility] routine fup [id number] 04/18/2015 04/18/2015 [facility] routine fup [id number] 04/18/2015 04/18/2015 [facility] routine fup [id number] 04/18/2015 04/18/2015 [facility] routine fup [id number] 04/18/2015 04/18/2015 [facility] routine fup [id number] 04/18/2015 04/18/2015 [facility] routine fup [id number] 04/18/2015 04/18/2015 [facility] routine fup [id number] 04/18/2015 04/18/2015 [facility] routine fup [id number] 04/18/2015 04/18/2015 [facility] routine fup [id number] 04/18/2015 04/18/2015 [facility] routine fup [id number] 04/18/2015 04/18/2015 [facility] routine fup [id number] 04/18/2015 04/18/2015 [facility] routine fup [id number] 04/18/2015 04/18/2015 [facility] Rx [id number] 04/18/2015 04/18/2015 [facility] Rx [id number] 04/18/2015 04/18/2015 [facility] Rx [id number] 04/18/2015 04/18/2015 [facility] Rx [id number] 04/18/2015 04/18/2015 [facility] Rx [id number] 04/18/2015 04/18/2015 [facility] Rx [id number] 04/18/2015 04/18/2015 [facility] Rx [id number] 04/18/2015 04/18/2015 [facility] Rx [id number] 04/18/2015 04/18/2015 [facility] Rx [id number] 04/18/2015 04/18/2015 [facility] Rx [id number] 04/18/2015 04/18/2015 [facility] Rx [id number] 04/18/2015 04/18/2015 [facility] Rx [id number] 04/18/2015 04/18/2015 [facility] [id number] 04/18/2015 04/18/2015 [id number] 04/18/2015 04/18/2015 [facility] [id number] 04/18/2015 04/18/2015 [facility] Rx [id number] 04/18/2015 04/18/2015 [facility] vitals [id number] 04/23/2015 04/23/2015 [facility] vitals [id number] 04/23/2015 04/23/2015 [facility] vitals [id number] 04/23/2015 04/23/2015 [facility] [id number] 04/23/2015 04/23/2015 [facility]als [id number] 04/23/2015 04/23/2015 [facility] vitals [id number] 04/24/2015 04/24/2015 [facility] vitals [id number] 04/24/2015 04/24/2015 [facility] vitals [id number] 04/24/2015 04/24/2015 [facility] vitals [id number] 04/24/2015 04/24/2015 [facility] vitals [id number] 04/24/2015 04/24/2015 [facility] vitals [id number] 04/24/2015 04/24/2015 [facility] vitals [id number] 04/24/2015 04/24/2015 [facility] vitals [id number] 04/24/2015 04/24/2015 [facility] vitals [id number] 04/24/2015 04/24/2015 [facility] vitals [id number] 04/24/2015 04/24/2015 [facility] vitals [id number] 04/24/2015 04/24/2015 [facility] Follow up [id number] 05/18/2015 05/18/2015 [facility] Follow up [id number] 05/18/2015 05/18/2015 [facility] Follow up [id number] 05/18/2015 05/18/2015 [facility] Follow up [id number] 05/18/2015 05/18/2015 [facility] Follow up [id number] 05/18/2015 05/18/2015 [facility] Follow up [id number] 05/18/2015 05/18/2015 [facility] Follow up [id number] 05/18/2015 05/18/2015 [facility] Follow up [id number] 05/18/2015 05/18/2015 [facility] Follow up [id number] 05/18/2015 05/18/2015 [facility] Follow up [id number] 05/18/2015 05/18/2015 [facility] [facility] Follow up [id number] 05/18/2015 05/18/2015 [facility] [id number] 05/18/2015 05/18/2015 [facility] Follow up [id number] 05/18/2015 05/18/2015 [facility] Follow up [id number] 05/18/2015 05/18/2015 [facility] Follow up [id number] 05/18/2015 05/18/2015 [facility] Follow up [id number] 05/18/2015 05/18/2015 [facility] medrol pack [id number] 06/09/2015 06/09/2015 [facility] medrol pack [id number] 06/09/2015 06/09/2015 [facility] medrol pack [id number] 06/09/2015 06/09/2015 [facility] medrol pack [id number] 06/09/2015 06/09/2015 [facility] medrol pack [id number] 06/09/2015 06/09/2015 [facility] medrol pack [id number] 06/09/2015 06/09/2015 [facility] medrol pack [id number] 06/09/2015 06/09/2015 [facility] medrol pack [id number] 06/09/2015 06/09/2015 [facility] medrol pack [id number] 06/09/2015 06/09/2015 [facility] medrol pack [id number] 06/09/2015 06/09/2015 [facility] medrol pack [id number] 06/09/2015 06/09/2015 [facility] medrol pack [id number] 06/09/2015 06/09/2015 [facility] medrol pack [id number] 06/09/2015 06/09/2015 [facility] medrol pack [id number] 06/09/2015 06/09/2015 [facility] medrol pack [id number] 06/09/2015 06/09/2015 [facility] medrol pack [id number] 06/09/2015 06/09/2015 [facility] new med follow up [id number] 07/03/2015 07/03/2015 [facility] new med follow up [id number] 07/03/2015 07/03/2015 [facility] new med follow up [id number] 07/03/2015 07/03/2015 [facility] new med follow up [id number] 07/03/2015 07/03/2015 [facility] new med follow up [id number] 07/03/2015 07/03/2015 [facility] new med follow up [id number] 07/03/2015 07/03/2015 [facility] new med follow up [id number] 07/03/2015 07/03/2015 [facility] new med follow up [id number] 07/03/2015 07/03/2015 [facility] new med follow up [id number] 07/03/2015 07/03/2015 [facility] new med follow up [id number] 07/03/2015 07/03/2015 [facility] new med follow up [id number] 07/03/2015 07/03/2015 [facility] new med follow up [id number] 07/03/2015 07/03/2015 [facility] new med follow up [id number] 07/03/2015 07/03/2015 [facility] new med follow up [id number] 07/03/2015 07/03/2015 [facility] new med follow up [id number] 07/03/2015 07/03/2015 [facility] Cimzia kit [id number] 07/07/2015 07/07/2015 [facility] Cimzia kit [id number] 07/07/2015 07/07/2015 [facility] Cimzia kit [id number] 07/07/2015 07/07/2015 [facility] Cimzia kit [id number] 07/07/2015 07/07/2015 [facility] Cimzia kit [id number] 07/07/2015 07/07/2015 [facility] Cimzia kit [id number] 07/07/2015 07/07/2015 [facility] Cimzia kit [id number] 07/07/2015 07/07/2015 [facility] Cimzia kit [id number] 07/07/2015 07/07/2015 [facility] Cimzia kit [id number] 07/07/2015 07/07/2015 [facility] Cimzia kit [id number] 07/07/2015 07/07/2015 [facility] Cimzia kit [id number] 07/07/2015 07/07/2015 [facility] Cimzia kit [id number] 07/07/2015 07/07/2015 [facility] Cimzia kit [id number] 07/07/2015 07/07/2015 [facility] Cimzia kit [id number] 07/07/2015 07/07/2015 [facility] routine/ cimzia inj [id number] 08/02/2015 08/02/2015 [facility] routine/ cimzia inj [id number] 08/02/2015 08/02/2015 [facility] routine/ cimzia inj [id number] 08/02/2015 08/02/2015 [facility] routine/ cimzia inj [id number] 08/02/2015 08/02/2015 [facility] routine/ cimzia inj [id number] 08/02/2015 08/02/2015 [facility] routine/ cimzia inj [id number] 08/02/2015 08/02/2015 [facility] routine/ cimzia inj [id number] 08/02/2015 08/02/2015 [facility] routine/ cimzia inj [id number] 08/02/2015 08/02/2015 [facility] routine/ cimzia inj [id number] 08/02/2015 08/02/2015 [facility] routine/ cimzia inj [id number] 08/02/2015 08/02/2015 [facility] routine/ cimzia inj [id number] 08/02/2015 08/02/2015 [facility] routine/ cimzia inj [id number] 08/02/2015 08/02/2015 [facility] routine/ cimzia inj [id number] 08/02/2015 08/02/2015 [facility] Prolia rx [id number] 08/11/2015 08/11/2015 [facility] Prolia rx [id number] 08/11/2015 08/11/2015 [facility] Prolia rx [id number] 08/11/2015 08/11/2015 [facility] Prolia rx [id number] 08/11/2015 08/11/2015 [facility] Prolia rx [id number] 08/11/2015 08/11/2015 [facility] Prolia rx [id number] 08/11/2015 08/11/2015 [facility] Prolia rx [id number] 08/11/2015 08/11/2015 [facility] Prolia rx [id number] 08/11/2015 08/11/2015 [facility] Prolia rx [id number] 08/11/2015 08/11/2015 [facility] Prolia rx [id number] 08/11/2015 08/11/2015 [facility] Prolia rx [id number] 08/11/2015 08/11/2015 [facility] Prolia rx [id number] 08/11/2015 08/11/2015 [facility] Follow up Routine - Cimzia refill [id number] 09/19/2015 09/19/2015 [facility] Follow up Routine - Cimzia refill [id number] 09/19/2015 09/19/2015 [facility] Follow up Routine - Cimzia refill [id number] 09/19/2015 09/19/2015 [facility] Follow up Routine - Cimzia refill [id number] 09/19/2015 09/19/2015 [facility] Follow up Routine - Cimzia refill [id number] 09/19/2015 09/19/2015 [facility] Follow up Routine - Cimzia refill [id number] 09/19/2015 09/19/2015 [facility] Follow up Routine - Cimzia refill [id number] 09/19/2015 09/19/2015 [facility] Follow up Routine - Cimzia refill [id number] 09/19/2015 09/19/2015 [facility] Follow up Routine - Cimzia refill [id number] 09/19/2015 09/19/2015 [facility] Follow up Routine - Cimzia refill [id number] 09/19/2015 09/19/2015 [facility] Follow up Routine - Cimzia refill [id number] 09/19/2015 09/19/2015 [facility] Cimzia kit refill [id number] 09/26/2015 09/26/2015 [facility] Cimzia kit refill [id number] 09/26/2015 09/26/2015 [facility] Cimzia kit refill [id number] 09/26/2015 09/26/2015 [facility] Cimzia kit refill [id number] 09/26/2015 09/26/2015 [facility] Cimzia kit refill [id number] 09/26/2015 09/26/2015 [facility] Cimzia kit refill [id number] 09/26/2015 09/26/2015 [facility] Cimzia kit refill [id number] 09/26/2015 09/26/2015 [facility] Cimzia kit refill [id number] 09/26/2015 09/26/2015 [facility] Cimzia kit refill [id number] 09/26/2015 09/26/2015 [facility] Cimzia kit refill [id number] 09/26/2015 09/26/2015 [facility] Cimzia Lypholyzed- per [id number] 10/12/2015 10/12/2015 [facility] Cimzia Lypholyzed- per [id number] 10/12/2015 10/12/2015 [facility] Cimzia Lypholyzed- per [id number] 10/12/2015 10/12/2015 [facility] Cimzia Lypholyzed- per [id number] 10/12/2015 10/12/2015 [facility] Cimzia Lypholyzed- per [id number] 10/12/2015 10/12/2015 [facility] Cimzia Lypholyzed- per [id number] 10/12/2015 10/12/2015 [facility] Cimzia Lypholyzed- per [id number] 10/12/2015 10/12/2015 [facility] Cimzia Lypholyzed- per [id number] 10/12/2015 10/12/2015 [facility] Cimzia Lypholyzed- per [id number] 10/12/2015 10/12/2015 [facility] Unknown [id number] 10/25/2015 10/25/2015 [facility] Unknown [id number] 10/25/2015 10/25/2015 [facility] Unknown [id number] 10/25/2015 10/25/2015 [facility] Unknown [id number] 10/25/2015 10/25/2015 [facility] Unknown [id number] 10/25/2015 10/25/2015 [facility] Unknown [id number] 10/25/2015 10/25/2015 [facility] Unknown [id number] 10/25/2015 10/25/2015 [facility] Unknown [id number] 10/25/2015 10/25/2015 [facility] Follow up 3 Month [id number] 01/11/2016 01/11/2016 [facility] Follow up 3 Month [id number] 01/11/2016 01/11/2016 [facility] Follow up 3 Month [id number] 01/11/2016 01/11/2016 [facility] Follow up 3 Month [id number] 01/11/2016 01/11/2016 [facility] Follow up 3 Month [id number] 01/11/2016 01/11/2016 [facility] Follow up 3 Month [id number] 01/11/2016 01/11/2016 [facility] lab results,add leflunomide [id number] 01/12/2016 01/12/2016 [facility] lab results,add leflunomide [id number] 01/12/2016 01/12/2016 [facility] lab results,add leflunomide [id number] 01/12/2016 01/12/2016 [facility] lab results,add leflunomide [id number] 01/12/2016 01/12/2016 [facility] lab results,add leflunomide [id number] 01/12/2016 01/12/2016 [facility] lab results,add leflunomide [id number] 01/12/2016 01/12/2016 [facility] lab results,add leflunomide [id number] 01/12/2016 01/12/2016 [facility] Follow up 4 wks, leflunomide mngmt [id number] 02/13/2016 02/13/2016 [facility] Follow up 4 wks, leflunomide mnt [id number] 02/13/2016 02/13/2016 [facility] Follow up 4 wks, leflunomide mngmt [id number] 02/13/2016 02/13/2016 [facility] Follow up 4 wks, leflunomide mngmt [id number] 02/13/2016 02/13/2016 [facility] Follow up 4 wks, leflunomide mngmt [id number] 02/13/2016 02/13/2016 [facility] Cimzia refill [id number] 04/12/2016 04/12/2016 [facility] Cimzia refill [id number] 04/12/2016 04/12/2016 [facility] Cimzia refill [id number] 04/12/2016 04/12/2016 [facility] Cimzia refill [id number] 04/12/2016 04/12/2016 [facility] Follow up 4 Month [id number] 06/18/2016 06/18/2016 [facility] Follow up 4 Month [id number] 06/18/2016 06/18/2016 [facility] Follow up 4 Month [id number] 06/18/2016 06/18/2016 [facility] Prolia-Spec Pharm [id number] 07/11/2016 07/11/2016 [facility] Prolia-Spec Pharm [id number] 07/11/2016 07/11/2016 [facility] Follow up 4 Month/labs [id number] 10/10/2016 10/10/2016 [facility] Procedures Procedure Code Date Perfomer Comments Source
--- OUTSIDE RECORDS SUMMARY | 2018-09-02 10:25 | XMS REPORT ---
Author Author [facility] Organization [employer] Address Unknown Phone Unavailable Care Team Providers Care Cloth Cutter Name Role Phone [facility] CP Unavailable Allergies, Adverse Reactions, Alerts Substance Reaction Event Type Aspirin Gastric Upset Non Drug Allergy Enbrel Info Not Available Non Drug Allergy plaquenil urticaria erythematous rash Non Drug Allergy simponi urticaria and allergic dermatitis with oral swelling Non Drug Allergy Penicillin anaphylaxis Non Drug Allergy Methadone Info Not Available Non Drug Allergy Cymbalta Altered Mental State Non Drug Allergy Chlordiazepoxide HCl Info Not Available Non Drug Allergy Problems Problem Type Condition Code Onset Dates Condition Status Assessment Anemia D64.9 Active Assessment Osteoporosis M81.0 Active Assessment Gastritis K29.70 Active Problem Rheumatoid arthritis without rheumatoid factor, right hand M06.041 Active Problem osteoporosis-senile 733.01 Active Problem Rheumatoid arthritis without rheumatoid factor, left hand M06.042 Active Assessment Back muscle spasm M62.830 Active Assessment Chronic pain G89.29 Active Problem Rheumatoid arthritis 714.0 Active Assessment Rheumatoid arthritis without rheumatoid factor, left hand M06.042 Active Assessment CUAUHTEMOC positive R76.8 Active Assessment Effusion of right olecranon bursa M25.421 Active Assessment Rash R21 Active Medications Medication Code System Code Instructions Start Date End Date Status Dosage Acetaminophen-Codeine [facility] [address]-27 300-30 MG Orally every 6 hrs Active 1 tablet as needed Cilostazol [facility] [address]-32 100 MG Orally Twice a day Active 1 tablet 30 minutes before or 2 hours after breakfast and dinner Levothyroxine Sodium [facility] [address]-22 150 MCG Orally Once a day Active 1 tablet on an empty stomach in the morning Ropinirole HCl [facility] [address]-85 3 MG Orally Once a day Active 1 tablet 1 to 3 hours before bedtime Estradiol [facility] [address]-35 1 MG Orally Daily for Three Weeks, 1 Week off Active 1 tablet HydrOXYzine HCl [facility] [address]-54 50 MG Orally every 6 hrs Active 1 tablet as needed Dapsone [facility] [address]-99 25 MG Orally Once a day Active 1 tablet Sucralfate [facility] [address]-88 1 GM Orally Twice a day Active 1 tablet on an empty stomach Gabapentin [facility] [address]-42 400 MG Orally Three times a day Active 1 capsule Simvastatin [facility] [address]-23 20 MG Orally Once a day Active 1 tablet in the evening Pravastatin Sodium [facility] [address]-90 40 MG Orally Once a day Active 1 tablet Nuvigil [facility] [address]-63 150 MG Orally Once a day Active 1 tablet Leflunomide [facility] [address]-77 20 MG Orally Once a day Active 1 tablet Dexilant [facility] [address]-63 60 MG Orally Once a day Active 1 capsule Loperamide HCl [facility] [address]-33 2 MG Orally 8 time(s) a day PRN Active 1 capsule Cimzia Prefilled [facility] 01590030409 2 X 200 MG/ML Active INJECT CONTENTS OF ONE SYRINGE SUBCUTANEOUSLY EVERY TWO WEEKS Stool Softener [facility] [address]-28 100 MG Orally Once a day Active 1 capsule as needed Diclofenac Sodium [facility] [address]-88 1 % Transdermal Active not defined Cyclobenzaprine HCl [facility] [address]-45 5 mg Orally bedtime Active 1 tablet Amlodipine Besylate [facility] [address]-40 2.5 MG Orally Once a day Active 1 tablet Ropinirole HCl [facility] [address]-33 1 MG Orally Once a day Active 1 tablet 1 to 3 hours before bedtime Pantoprazole Sodium [facility] [address]-07 40 MG Orally Once a day Active 1 tablet Vitamin D3 [facility] [address]-05 2000 UNIT Orally Active as directed Xarelto [facility] [address]-19 20 MG Orally Once a day Active 1 tablet with food Meclizine HCl [facility] [address]-35 25 MG Orally Once a day PRN Active 1 tablet as needed Triamcinolone Acetonide [facility] [address]-68 0.1 % Externally Twice a day Active 1 application to affected area Prolia [facility] [address]-09 60 MG/ML Subcutaneous Active not defined Promethazine HCl [facility] [address]-94 25 MG Orally Once a day PRN Active 1 tablet at bedtime Lamisil [facility] [address]-98 Orally Once a day Active 1 tablet Vital Signs Date/Time: November 26, 2016 Height 63 in Blood Pressure Diastolic 69 mm Hg Blood Pressure Systolic 121 mm Hg Weight 123.4 lbs Results No Known Results Summary Purpose eClinicalWorks Submission
--- OUTSIDE RECORDS SUMMARY | 2018-09-02 10:25 | XMS REPORT ---
Author Author Tri Pollard Organization [employer] Address Unknown Phone Unavailable Care Team Providers Care Leadership Intern Name Role Phone Tri Pollard CP Unavailable Allergies, Adverse Reactions, Alerts Substance Reaction Event Type plaquenil urticaria erythematous rash Non Drug Allergy Aspirin Gastric Upset Non Drug Allergy Penicillin anaphylaxis Non Drug Allergy Methadone Info Not Available Non Drug Allergy plaquenil urticaria erythematous rash Non Drug Allergy simponi urticaria and allergic dermatitis with oral swelling Non Drug Allergy Enbrel Info Not Available Non Drug Allergy Cymbalta Altered Mental State Non Drug Allergy Cymbalta Altered Mental State Non Drug Allergy Chlordiazepoxide HCl Info Not Available Non Drug Allergy Penicillin anaphylaxis Non Drug Allergy Methadone Info Not Available Non Drug Allergy Enbrel Info Not Available Non Drug Allergy Chlordiazepoxide HCl Info Not Available Non Drug Allergy Aspirin Gastric Upset Non Drug Allergy simponi urticaria and allergic dermatitis with oral swelling Non Drug Allergy Problems Problem Type Condition [...] rheumatoid factor, left hand M06.042 Active Assessment Low back pain M54.5 Active Assessment CUAUHTEMOC positive R76.8 Active Assessment Effusion of right olecranon bursa M25.421 Active Medications Medication Code System Code Instructions Start Date End Date Status Dosage Simvastatin [facility] [address]-25 20 MG Orally Once a day Active 1 tablet in the evening Gabapentin [facility] [address]-73 400 MG Orally Three times a day Active 1 capsule Ropinirole HCl [facility] [address]-97 3 MG Orally Once a day Active 1 tablet 1 to 3 hours before bedtime Levothyroxine Sodium [facility] [address]-09 150 MCG Orally Once a day Active 1 tablet on an empty stomach in the morning Triamcinolone Acetonide [facility] [address]-25 0.1 % Externally Twice a day Active 1 application to affected area HydrOXYzine HCl [facility] [address]-90 50 MG Orally every 6 hrs Active 1 tablet as needed Leflunomide [facility] [address]-88 20 MG Orally Once a day Active 1 tablet Loperamide HCl [facility] [address]-53 2 MG Orally 8 time(s) a day PRN Active 1 capsule Amlodipine Besylate [facility] [address]-88 2.5 MG Orally Once a day Active 1 tablet Nuvigil [facility] [address]-35 150 MG Orally Once a day Active 1 tablet Cimzia Prefilled [facility] 43301652106 2 X 200 MG/ML Subcutaneous 1 shot every 2 weeks Active inject contents of one syringe subcutaneously every two weeks Prolia [facility] [address]-40 60 MG/ML Subcutaneous Active not defined Diclofenac Sodium [facility] [address]-66 1 % Transdermal Active not defined Dexilant [facility] [address]-38 60 MG Orally Once a day Active 1 capsule Xarelto [facility] [address]-14 20 MG Orally Once a day Active 1 tablet with food Promethazine HCl [facility] [address]-79 25 MG Orally Once a day PRN Active 1 tablet at bedtime Ropinirole HCl [facility] [address]-39 1 MG Orally Once a day Active 1 tablet 1 to 3 hours before bedtime Dapsone [facility] [address]-55 25 MG Orally Once a day Active 1 tablet Stool Softener [facility] [address]-59 100 MG Orally Once a day Active 1 capsule as needed Cilostazol [facility] [address]-48 100 MG Orally Twice a day Active 1 tablet 30 minutes before or 2 hours after breakfast and dinner Meclizine HCl [facility] [address]-02 25 MG Orally Once a day PRN Active 1 tablet as needed Estradiol [facility] [address]-46 1 MG Orally Daily for Three Weeks, 1 Week off Active 1 tablet Sucralfate [facility] [address]-41 1 GM Orally Twice a day Active 1 tablet on an empty stomach Vitamin D3 [facility] [address]-66 2000 UNIT Orally Active as directed Lamisil [facility] [address]-15 Orally Once a day Active 1 tablet Cyclobenzaprine HCl [facility] [address]-45 5 mg Orally bedtime Active 1 tablet Pantoprazole Sodium [facility] [address]-18 40 MG Orally Once a day Active 1 tablet Pravastatin Sodium [facility] [address]-92 40 MG Orally Once a day Active 1 tablet Vital Signs Date/Time: January 16, 2017 Height 63 in Blood Pressure Diastolic 83 mm Hg Blood Pressure Systolic 128 mm Hg Weight 116 lbs Results No Known Results Summary Purpose [employer]Works Submission
--- OUTSIDE RECORDS SUMMARY | 2018-09-02 10:25 | XMS REPORT ---
Author Author Tri Pollard [facility] [employer] Address Unknown Phone Unavailable Care Team Providers Care Jewelry Sorter Name Role Phone Tri Pollard CP Unavailable Allergies, Adverse Reactions, Alerts Substance Reaction Event Type plaquenil urticaria erythematous rash Non Drug Allergy simponi urticaria and allergic dermatitis with oral swelling Non Drug Allergy Enbrel Info Not Available Non Drug Allergy Cymbalta Altered Mental State Non Drug Allergy Penicillin anaphylaxis Non Drug Allergy Methadone Info Not Available Non Drug Allergy Chlordiazepoxide HCl Info Not Available Non Drug Allergy Aspirin Gastric Upset Non Drug Allergy plaquenil urticaria erythematous rash Non Drug Allergy simponi urticaria and allergic dermatitis with oral swelling Non Drug Allergy Penicillin anaphylaxis Non Drug Allergy Methadone Info Not Available Non Drug Allergy Enbrel Info Not Available Non Drug Allergy Cymbalta Altered Mental State Non Drug Allergy Chlordiazepoxide HCl Info Not Available Non Drug Allergy Aspirin Gastric Upset Non Drug Allergy Problems Problem Type Condition Code Onset Dates Condition Status Assessment Anemia D64.9 Active Assessment Chronic pain G89.29 Active Assessment Gastritis K29.70 Active Problem Rheumatoid arthritis without rheumatoid factor, left hand M06.042 Active Problem osteoporosis-senile 733.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 Problem Rheumatoid arthritis without rheumatoid factor, right hand M06.041 Active Assessment Rheumatoid arthritis without rheumatoid factor, left hand M06.042 Active Assessment Back muscle spasm M62.830 Active Problem Rheumatoid arthritis 714.0 Active Assessment Osteoporosis M81.0 Active Assessment Neck muscle spasm M62.838 Active Assessment Low back pain M54.5 Active Assessment CUAUHTEMOC positive R76.8 Active Assessment Cellulitis of left forearm L03.114 Active Assessment Effusion of right olecranon bursa M25.421 Active Medications Medication Code System Code Instructions Start Date End Date Status Dosage Promethazine HCl [facility] 94136808250 25 MG Orally Once a day PRN Active 1 tablet at bedtime Xarelto [facility] 63094236114 20 MG Orally Once a day Active 1 tablet with food Amlodipine Besylate [facility] 05647676515 2.5 MG Orally Once a day Active 1 tablet Levothyroxine Sodium [facility] 91504675903 150 MCG Orally Once a day Active 1 tablet on an empty stomach in the morning Dexilant [facility] 57144676949 60 MG Orally Once a day Active 1 capsule Medrol [facility] 06552153453 4 MG Orally Once a day Jul 23, 2017 Active as directed Mylanta [facility] 34865599986 200-200-20 MG/5ML Orally Four times a day Active 10 ml as needed Loperamide HCl [facility] 09756582034 2 MG Orally 8 time(s) a day PRN Active 1 capsule Vitamin D3 [facility] 46503006645 2000 UNIT Orally Active as directed Estradiol [facility] 91182207701 1 MG Orally Daily for Three Weeks, 1 Week off Active 1 tablet Lamisil [facility] 29920373030 Orally Once a day Active 1 tablet Diclofenac Sodium [facility] 84275998116 1 % Transdermal Active not defined Pepto-Bismol [facility] 41778287027 262 MG Orally 8 time(s) a day Active 2 tablets as needed HydrOXYzine HCl [facility] 35596652394 50 MG Orally every 6 hrs Active 1 tablet as needed Ropinirole HCl [facility] 78705468385 1 MG Orally Once a day Active 1 tablet 1 to 3 hours before bedtime Cilostazol [facility] 12491599580 100 MG Orally Twice a day Active 1 tablet 30 minutes before or 2 hours after breakfast and dinner Cephalexin [facility] 34089402489 500 MG Orally every 12 hrs Mar 11, 2018 Active 1 capsule Sucralfate [facility] 27095132602 1 GM Orally Twice a day Active 1 tablet on an empty stomach Gabapentin [facility] 50597956800 400 MG Orally Three times a day Active 1 capsule Leflunomide [facility] 39528358220 20 MG Orally Once a day Active 1 tablet Stool Softener [facility] 56135362873 100 MG Orally Once a day Active 1 capsule as needed Ropinirole HCl [facility] 02773830919 3 MG Orally Once a day Active 1 tablet 1 to 3 hours before bedtime Cyclobenzaprine HCl [facility] 78858930234 5 mg Orally bedtime Active 1 tablet Prolia [facility] 56204117459 60 MG/ML Subcutaneous Active not defined Pantoprazole Sodium [facility] 79890280480 40 MG Orally Once a day Active 1 tablet Meclizine HCl [facility] 93317866031 25 MG Orally Once a day PRN Active 1 tablet as needed Nuvigil [facility] 23292714550 150 MG Orally Once a day Active 1 tablet Cimzia Prefilled [facility] 63476786126 2 X 200 MG/ML Subcutaneous 1 shot every 2 weeks Active inject contents of one syringe subcutaneously every two weeks Dapsone [facility] 53094381349 25 MG Orally Once a day Active 1 tablet Simvastatin [facility] 01827015388 20 MG Orally Once a day Active 1 tablet in the evening Pravastatin Sodium [facility] 79075882259 40 MG Orally Once a day Active 1 tablet Triamcinolone Acetonide [facility] 26018796961 0.1 % Externally Twice a day Active 1 application to affected area Vital Signs Date/Time: Mar 11, 2018 Height 63 in Blood Pressure Diastolic 60 mm Hg Blood Pressure Systolic 124 mm Hg Weight 135 lbs Results No Known Results Summary Purpose [employer]ClinicalWorks Submission
--- OUTSIDE RECORDS SUMMARY | 2018-09-02 10:25 | XMS REPORT ---
Author Author Tri Pollard [facility] eClinicalWorks Address Unknown Phone Unavailable Care Team Providers Care Hammer Mill Operator Name Role Phone Tri Pollard CP Unavailable [...] rheumatoid factor, right hand M06.041 Active Assessment Back muscle spasm M62.830 Active Assessment Chronic pain G89.29 Active Problem Rheumatoid arthritis 714.0 Active Assessment Rheumatoid arthritis without rheumatoid factor, left hand M06.042 Active Assessment Neck muscle spasm M62.838 Active Assessment Low back pain M54.5 Active Assessment CUAUHTEMOC positive R76.8 Active Assessment Effusion of right olecranon bursa M25.421 Active Medications Medication Code System Code Instructions Start Date End Date Status Dosage Levothyroxine Sodium [facility] 72011534430 150 MCG Orally Once a day Active 1 tablet on an empty stomach in the morning Stool Softener ND 08018592242 100 MG Orally Once a day Active 1 capsule as needed Meclizine HCl ND 27520150160 25 MG Orally Once a day PRN Active 1 tablet as needed Vitamin D3 ND 36989209641 2000 UNIT Orally Active as directed Pravastatin Sodium [facility] 45323150126 40 MG Orally Once a day Active 1 tablet Dexilant [facility] 04225936723 60 MG Orally Once a day Active 1 capsule Dapsone [facility] 59910142028 25 MG Orally Once a day Active 1 tablet Ropinirole HCl [facility] 66287898092 3 MG Orally Once a day Active 1 tablet 1 to 3 hours before bedtime Cimzia Prefilled [facility] 97699932020 2 X 200 MG/ML Subcutaneous 1 shot every 2 weeks Active inject contents of one syringe subcutaneously every two weeks Simvastatin [facility] 88608156398 20 MG Orally Once a day Active 1 tablet in the evening Estradiol ND 19774081387 1 MG Orally Daily for Three Weeks, 1 Week off Active 1 tablet Nuvigil [facility] 98760042945 150 MG Orally Once a day Active 1 tablet Diclofenac Sodium [facility] 01693798647 1 % Transdermal Active not defined HydrOXYzine HCl [facility] 86864220224 50 MG Orally every 6 hrs Active 1 tablet as needed Gabapentin [facility] 82330480382 400 MG Orally Three times a day Active 1 capsule Amlodipine Besylate [facility] 74073159559 2.5 MG Orally Once a day Active 1 tablet Cilostazol [facility] 14948648536 100 MG Orally Twice a day Active 1 tablet 30 minutes before or 2 hours after breakfast and dinner Sucralfate [facility] 85224733107 1 GM Orally Twice a day Active 1 tablet on an empty stomach Medrol [facility] 08071993672 4 MG Orally Once a day Jul 23, 2017 Active as directed Leflunomide [facility] 09820920714 20 MG Orally Once a day Active 1 tablet Prolia [facility] 07574532399 60 MG/ML Subcutaneous Active not defined Ropinirole HCl [facility] 75717391687 1 MG Orally Once a day Active 1 tablet 1 to 3 hours before bedtime Pepto-Bismol [facility] 65303713050 262 MG Orally 8 time(s) a day Active 2 tablets as needed Pantoprazole Sodium [facility] 17207911482 40 MG Orally Once a day Active 1 tablet Cyclobenzaprine HCl [facility] 55723045644 5 mg Orally bedtime Active 1 tablet Xarelto [facility] 77839786995 20 MG Orally Once a day Active 1 tablet with food Mylanta [facility] 90191855492 200-200-20 MG/5ML Orally Four times a day Active 10 ml as needed Lamisil [facility] 64800292621 Orally Once a day Active 1 tablet Loperamide HCl [facility] 83516149754 2 MG Orally 8 time(s) a day PRN Active 1 capsule Promethazine HCl [facility] 34481907820 25 MG Orally Once a day PRN Active 1 tablet at bedtime Triamcinolone Acetonide [facility] 75920463628 0.1 % Externally Twice a day Active 1 application to affected area Vital Signs Date/Time: October 22, 2017 Height 63 in Blood Pressure Diastolic 53 mm Hg Blood Pressure Systolic 110 mm Hg Weight 127.6 lbs Results No Known Results Summary Purpose eClinicalWorks Submission
--- OUTSIDE RECORDS SUMMARY | 2018-09-02 10:25 | XMS REPORT ---
Author Author Tri Pollard Organization [employer] Address Unknown Phone Unavailable Care Team Providers Care Jig And Fixture Builder Apprentice Name Role Phone Tri Pollard CP Unavailable Allergies No Known Allergies Problems Problem Type Condition Code Onset Dates Condition Status Problem Rheumatoid arthritis without rheumatoid factor, left hand M06.042 Active Problem osteoporosis-senile 733.01 Active Problem Rheumatoid arthritis without rheumatoid factor, right hand M06.041 Active Problem Rheumatoid arthritis 714.0 Active Medications No Known Medications Results No Known Results Summary Purpose [employer]ClinicalWorks Submission
--- OUTSIDE RECORDS SUMMARY | 2018-09-02 10:25 | XMS REPORT ---
Author Author Tri Pollard Organization [employer] Address Unknown Phone Unavailable Care Team Providers Care Casting Cleaner Name Role Phone Tri Pollard CP Unavailable Allergies, Adverse Reactions, Alerts Substance Reaction Event Type plaquenil urticaria erythematous rash Non Drug Allergy simponi urticaria and allergic dermatitis with oral swelling Non Drug Allergy Penicillin anaphylaxis Non Drug Allergy Methadone Info Not Available Non Drug Allergy Cymbalta Altered Mental State Non Drug Allergy Enbrel Info Not Available [...] Instructions Start Date End Date Status Dosage Estradiol [facility] [address]-90 1 MG Orally Daily for Three Weeks, 1 Week off Active 1 tablet Pantoprazole Sodium [facility] [address]-12 40 MG Orally Once a day Active 1 tablet Cilostazol [facility] [address]-26 100 MG Orally Twice a day Active 1 tablet 30 minutes before or 2 hours after breakfast and dinner Simvastatin [facility] [address]-96 20 MG Orally Once a day Active 1 tablet in the evening Gabapentin [facility] [address]-17 400 MG Orally Three times a day Active 1 capsule Ropinirole HCl [facility] [address]-72 1 MG Orally Once a day Active 1 tablet 1 to 3 hours before bedtime Meclizine HCl [facility] [address]-16 25 MG Orally Once a day PRN Active 1 tablet as needed Pravastatin Sodium [facility] [address]-02 40 MG Orally Once a day Active 1 tablet Promethazine HCl [facility] [address]-91 25 MG Orally Once a day PRN Active 1 tablet at bedtime Dapsone [facility] [address]-56 25 MG Orally Once a day Active 1 tablet Prolia [facility] [address]-66 60 MG/ML Subcutaneous Active not defined Leflunomide [facility] [address]-72 20 MG Orally Once a day Active 1 tablet Cimzia Prefilled [facility] 13481430192 2 X 200 MG/ML Subcutaneous 1 shot every 2 weeks Jun 22, 2017 Active inject contents of one syringe subcutaneously every two weeks Vitamin D3 [facility] [address]-38 2000 UNIT Orally Active as directed Lamisil [facility] [address]-40 Orally Once a day Active 1 tablet Nuvigil [facility] [address]-21 150 MG Orally Once a day Active 1 tablet Levothyroxine Sodium [facility] [address]-11 150 MCG Orally Once a day Active 1 tablet on an empty stomach in the morning Stool Softener [facility] [address]-66 100 MG Orally Once a day Active 1 capsule as needed Loperamide HCl [facility] [address]-18 2 MG Orally 8 time(s) a day PRN Active 1 capsule Xarelto [facility] [address]-28 20 MG Orally Once a day Active 1 tablet with food Amlodipine Besylate [facility] [address]-51 2.5 MG Orally Once a day Active 1 tablet Dexilant [facility] [address]-95 60 MG Orally Once a day Active 1 capsule Triamcinolone Acetonide [facility] [address]-18 0.1 % Externally Twice a day Active 1 application to affected area Ropinirole HCl [facility] [address]-35 3 MG Orally Once a day Active 1 tablet 1 to 3 hours before bedtime Cyclobenzaprine HCl [facility] [address]-97 5 mg Orally bedtime Active 1 tablet Diclofenac Sodium [facility] [address]-08 1 % Transdermal Active not defined HydrOXYzine HCl [facility] [address]-24 50 MG Orally every 6 hrs Active 1 tablet as needed Sucralfate [facility] [address]-34 1 GM Orally Twice a day Active 1 tablet on an empty stomach Vital Signs Date/Time: December 24, 2016 Height 63 in Blood Pressure Diastolic 59 mm Hg Blood Pressure Systolic 99 mm Hg Weight 121.8 lbs Results No Known Results Summary Purpose eClinicalWorks Submission
--- OUTSIDE RECORDS SUMMARY | 2018-09-02 10:25 | XMS REPORT ---
Author Author Tri Pollard Organization [employer] Address Unknown Phone Unavailable Care Team Providers Care Career Coordinator Name Role Phone Tri Pollard CP Unavailable Allergies No Known Allergies Problems Problem Type Condition Code Onset Dates Condition Status Problem Rheumatoid arthritis without rheumatoid factor, left hand M06.042 Active Problem osteoporosis-senile 733.01 Active Problem Rheumatoid arthritis without rheumatoid factor, right hand M06.041 Active Problem Rheumatoid arthritis 714.0 Active Medications Medication Code System Code Instructions Start Date End Date Status Dosage Prolia [facility] 35414325120 60 MG/ML Subcutaneous every 6 months Jul 14, 2017 Active as directed Results No Known Results Summary Purpose eClinicalWorks Submission
--- OUTSIDE RECORDS SUMMARY | 2018-09-02 10:25 | XMS REPORT ---
Author Author Tri Pollard Organization [employer] Address Unknown Phone Unavailable Care Team Providers Care Green Marketing Specialist Name Role Phone Tri Pollard CP Unavailable Allergies No Known Allergies Problems Problem Type Condition Code Onset Dates Condition Status Problem Rheumatoid arthritis without rheumatoid factor, right hand M06.041 Active Problem osteoporosis-senile 733.01 Active Problem Rheumatoid arthritis without rheumatoid factor, left hand M06.042 Active Problem Rheumatoid arthritis 714.0 Active Assessment Rheumatoid arthritis without rheumatoid factor, left hand M06.042 Active Medications Medication Code System Code Instructions Start Date End Date Status Dosage Cimzia Prefilled [facility] 40077509339 2 X 200 MG/ML Subcutaneous 1 shot every 2 weeks Sep 25, 2017 Active inject contents of one syringe subcutaneously every two weeks Results No Known Results Summary Purpose eClinicalWorks Submission
--- OUTSIDE RECORDS SUMMARY | 2018-09-02 10:25 | XMS REPORT ---
Author Author Tri Pollard Organization [employer] Address Unknown Phone Unavailable Care Team Providers Care Entry Processor Name Role Phone Tri Pollard CP Unavailable [...] Instructions Start Date End Date Status Dosage Diclofenac Sodium [facility] [address]-16 1 % Transdermal Active not defined Dexilant [facility] [address]-77 60 MG Orally Once a day Active 1 capsule Lamisil [facility] [address]-11 Orally Once a day Active 1 tablet Pravastatin Sodium [facility] [address]-57 40 MG Orally Once a day Active 1 tablet Vitamin D3 [facility] [address]-36 2000 UNIT Orally Active as directed Levothyroxine Sodium [facility] [address]-80 150 MCG Orally Once a day Active 1 tablet on an empty stomach in the morning Loperamide HCl [facility] [address]-68 2 MG Orally 8 time(s) a day PRN Active 1 capsule HydrOXYzine HCl [facility] [address]-43 50 MG Orally every 6 hrs Active 1 tablet as needed Triamcinolone Acetonide [facility] [address]-60 0.1 % Externally Twice a day Active 1 application to affected area Prolia [facility] [address]-23 60 MG/ML Subcutaneous Active not defined Meclizine HCl [facility] [address]-62 25 MG Orally Once a day PRN Active 1 tablet as needed Ropinirole HCl [facility] [address]-86 1 MG Orally Once a day Active 1 tablet 1 to 3 hours before bedtime Ropinirole HCl [facility] [address]-65 3 MG Orally Once a day Active 1 tablet 1 to 3 hours before bedtime Cilostazol [facility] [address]-28 100 MG Orally Twice a day Active 1 tablet 30 minutes before or 2 hours after breakfast and dinner Leflunomide [facility] [address]-63 20 MG Orally Once a day Active 1 tablet Dapsone [facility] [address]-30 25 MG Orally Once a day Active 1 tablet Promethazine HCl [facility] [address]-21 25 MG Orally Once a day PRN Active 1 tablet at bedtime Amlodipine Besylate [facility] [address]-94 2.5 MG Orally Once a day Active 1 tablet Estradiol [facility] [address]-73 1 MG Orally Daily for Three Weeks, 1 Week off Active 1 tablet Nuvigil [facility] [address]-12 150 MG Orally Once a day Active 1 tablet Simvastatin [facility] [address]-02 20 MG Orally Once a day Active 1 tablet in the evening Cimzia Prefilled [facility] 43992400156 2 X 200 MG/ML Subcutaneous 1 shot every 2 weeks Active inject contents of one syringe subcutaneously every two weeks Xarelto [facility] [address]-62 20 MG Orally Once a day Active 1 tablet with food Cyclobenzaprine HCl [facility] [address]-51 5 mg Orally bedtime Active 1 tablet Pantoprazole Sodium [facility] [address]-22 40 MG Orally Once a day Active 1 tablet Acetaminophen-Codeine [facility] [address]-24 300-30 MG Orally every 6 hrs Active 1 tablet as needed Sucralfate [facility] [address]-66 1 GM Orally Twice a day Active 1 tablet on an empty stomach Gabapentin [facility] [address]-61 400 MG Orally Three times a day Active 1 capsule Stool Softener [facility] [address]-49 100 MG Orally Once a day Active 1 capsule as needed Vital Signs Date/Time: December 10, 2016 Height 63 in Blood Pressure Diastolic 71 mm Hg Blood Pressure Systolic 119 mm Hg Weight 121 lbs Results No Known Results Summary Purpose eClinicalWorks Submission
--- OUTSIDE RECORDS SUMMARY | 2018-09-02 10:25 | XMS REPORT ---
Author Author Tir Pollard [facility] e[employer] Address Unknown Phone Unavailable Care Team Providers Care Golf Cart Attendant Name Role Phone Tri Pollard CP Unavailable [...] Allergy Aspirin Gastric Upset Non Drug Allergy Chlordiazepoxide HCl Info Not [...] Instructions Start Date End Date Status Dosage Lamisil [facility] 53222028980 Orally Once a day Active 1 tablet Pravastatin Sodium ND 72901926054 40 MG Orally Once a day Active 1 tablet Simvastatin ND 29179409109 20 MG Orally Once a day Active 1 tablet in the evening Nuvigil [facility] 63529236498 150 MG Orally Once a day Active 1 tablet Meclizine HCl [facility] 08718468221 25 MG Orally Once a day PRN Active 1 tablet as needed Levothyroxine Sodium [facility] 12953592016 150 MCG Orally Once a day Active 1 tablet on an empty stomach in the morning Ropinirole HCl [facility] 99622570014 3 MG Orally Once a day Active 1 tablet 1 to 3 hours before bedtime Triamcinolone Acetonide [facility] 46446957587 0.1 % Externally Twice a day Active 1 application to affected area Pantoprazole Sodium [facility] 76284087978 40 MG Orally Once a day Active 1 tablet HydrOXYzine HCl [facility] 24280849712 50 MG Orally every 6 hrs Active 1 tablet as needed Cimzia Prefilled [facility] 74803800349 2 X 200 MG/ML Subcutaneous 1 shot every 2 weeks Active inject contents of one syringe subcutaneously every two weeks Medrol [facility] 21542834120 4 MG Orally Once a day Jul 23, 2017 Active as directed Vitamin D3 [facility] 09975632295 2000 UNIT Orally Active as directed Stool Softener [facility] 79768331253 100 MG Orally Once a day Active 1 capsule as needed Dapsone [facility] 67260070439 25 MG Orally Once a day Active 1 tablet Dexilant [facility] 30856803039 60 MG Orally Once a day Active 1 capsule Cilostazol [facility] 83282539484 100 MG Orally Twice a day Active 1 tablet 30 minutes before or 2 hours after breakfast and dinner Ropinirole HCl [facility] 83097731192 1 MG Orally Once a day Active 1 tablet 1 to 3 hours before bedtime Estradiol [facility] 51892092075 1 MG Orally Daily for Three Weeks, 1 Week off Active 1 tablet Xarelto [facility] 78770598414 20 MG Orally Once a day Active 1 tablet with food Promethazine HCl [facility] 83500312491 25 MG Orally Once a day PRN Active 1 tablet at bedtime Gabapentin [facility] 98143140134 400 MG Orally Three times a day Active 1 capsule Amlodipine Besylate [facility] 64328983352 2.5 MG Orally Once a day Active 1 tablet Diclofenac Sodium [facility] 56201083213 1 % Transdermal Active not defined Loperamide HCl [facility] 32836563520 2 MG Orally 8 time(s) a day PRN Active 1 capsule Leflunomide [facility] 14680566311 20 MG Orally Once a day Active 1 tablet Cyclobenzaprine HCl [facility] 75568309599 5 mg Orally bedtime Active 1 tablet Sucralfate [facility] 14507373988 1 GM Orally Twice a day Active 1 tablet on an empty stomach Prolia [facility] 80729109861 60 MG/ML Subcutaneous Active not defined Vital Signs Date/Time: Jul 23, 2017 Height 63 in Blood Pressure Diastolic 46 mm Hg Blood Pressure Systolic 82 mm Hg Weight 126 lbs Results No Known Results Summary Purpose eClinicalWorks Submission
--- OUTSIDE RECORDS SUMMARY | 2018-09-02 10:25 | XMS REPORT ---
Author Author Tri Pollard Organization [employer] Address Unknown Phone Unavailable Care Team Providers Care Die Maker Apprentice Name Role Phone Tri Pollard CP [...] Instructions Start Date End Date Status Dosage Xarelto [facility] [address]-88 20 MG Orally Once a day Active 1 tablet with food Simvastatin [facility] [address]-84 20 MG Orally Once a day Active 1 tablet in the evening Ropinirole HCl [facility] [address]-80 3 MG Orally Once a day Active 1 tablet 1 to 3 hours before bedtime Loperamide HCl [facility] [address]-06 2 MG Orally 8 time(s) a day PRN Active 1 capsule Diclofenac Sodium [facility] [address]-59 1 % Transdermal Active not defined Ropinirole HCl [facility] [address]-04 1 MG Orally Once a day Active 1 tablet 1 to 3 hours before bedtime Cimzia Prefilled [facility] 55404570171 2 X 200 MG/ML Subcutaneous 1 shot every 2 weeks Active inject contents of one syringe subcutaneously every two weeks Estradiol [facility] [address]-21 1 MG Orally Daily for Three Weeks, 1 Week off Active 1 tablet Amlodipine Besylate [facility] [address]-98 2.5 MG Orally Once a day Active 1 tablet Pravastatin Sodium [facility] [address]-35 40 MG Orally Once a day Active 1 tablet Leflunomide [facility] [address]-54 20 MG Orally Once a day Active 1 tablet HydrOXYzine HCl [facility] [address]-33 50 MG Orally every 6 hrs Active 1 tablet as needed Meclizine HCl [facility] [address]-14 25 MG Orally Once a day PRN Active 1 tablet as needed Sucralfate [facility] [address]-85 1 GM Orally Twice a day Active 1 tablet on an empty stomach Pantoprazole Sodium [facility] [address]-52 40 MG Orally Once a day Active 1 tablet Nuvigil [facility] [address]-60 150 MG Orally Once a day Active 1 tablet Stool Softener [facility] [address]-88 100 MG Orally Once a day Active 1 capsule as needed Prolia [facility] [address]-55 60 MG/ML Subcutaneous Active not defined Cilostazol [facility] [address]-61 100 MG Orally Twice a day Active 1 tablet 30 minutes before or 2 hours after breakfast and dinner Promethazine HCl [facility] [address]-34 25 MG Orally Once a day PRN Active 1 tablet at bedtime Levothyroxine Sodium [facility] [address]-25 150 MCG Orally Once a day Active 1 tablet on an empty stomach in the morning Triamcinolone Acetonide [facility] [address]-89 0.1 % Externally Twice a day Active 1 application to affected area Dapsone [facility] [address]-10 25 MG Orally Once a day Active 1 tablet Vitamin D3 [facility] [address]-05 2000 UNIT Orally Active as directed Gabapentin [facility] [address]-84 400 MG Orally Three times a day Active 1 capsule Lamisil [facility] [address]-99 Orally Once a day Active 1 tablet Dexilant [facility] [address]-74 60 MG Orally Once a day Active 1 capsule Cyclobenzaprine HCl [facility] [address]-39 5 mg Orally bedtime Active 1 tablet Vital Signs Date/Time: May 06, 2017 Height 63 in Blood Pressure Diastolic 62 mm Hg Blood Pressure Systolic 118 mm Hg Weight 128 lbs Results No Known Results Summary Purpose eClinicalWorks Submission
--- OUTSIDE RECORDS SUMMARY | 2018-09-02 10:26 | XMS REPORT ---
Author Author Tri Pollard Organization [employer] Address Unknown Phone Unavailable Care Team Providers Care Broom Stitcher Name Role Phone Tri Pollard CP Unavailable Allergies, Adverse Reactions, Alerts Substance Reaction Event Type simponi urticaria and allergic dermatitis with oral swelling Non Drug Allergy Penicillin anaphylaxis Non Drug Allergy Methadone Info Not Available Non Drug Allergy Enbrel Info Not Available Non Drug Allergy Cymbalta Altered Mental State Non Drug Allergy Chlordiazepoxide HCl Info Not Available Non Drug Allergy Aspirin Gastric Upset Non Drug Allergy Encounters Encounter Location Date Follow up [facility]umatology Clinic January 09, 2015 routine follow up [facility] February 08, 2015 [facility]ri [facility] February 13, 2015 simponi injection we use our samples [facility] October 19, 2014 Cimzia injection [facility] November 10, 2014 routine follow up [facility] December 09, 2014 Problems Problem Type Condition ICD-9 Code Onset Dates Condition Status Assessment Accidental fall from other furniture E884.5 Active Assessment Pain in joint, lower leg 719.46 Active Assessment Personal history of diseases of digestive disease V12.79 Active Problem Rheumatoid arthritis 714.0 Active Assessment Rheumatoid arthritis 714.0 Active Problem osteoporosis-senile 733.01 Active Assessment Pain in joint, hand 719.44 Active Assessment osteoporosis-senile 733.01 Active Assessment monitorring of [employer] V58.69 Active Assessment Counseling NOS V65.40 Active Medications Medication Code System Code Instructions Start Date End Date Status Dosage Vitamin D3 [facility] [address]-50 2000 UNIT Orally Active as directed Ropinirole HCl [facility] [address]-51 1 MG Orally Once a day Active 1 tablet 1 to 3 hours before bedtime Nuvigil [facility] [address]-07 150 MG Orally Once a day Active 1 tablet Cimzia [facility] [address]-59 2 X 200 MG Subcutaneous 00 mg (1 shot) every 2 weeks SC for RA December 09, 2014 Jun 08, 2015 Active 1 Promethazine HCl [facility] [address]-30 25 MG Orally Once a day Active 1 tablet at bedtime Simvastatin [facility] [address]-30 20 MG Orally Once a day Active 1 tablet in the evening Xarelto [facility] [address]-91 20 MG Orally Once a day Active 1 tablet with food Nexium [facility] [address]-83 40 MG Orally name brand only. generic not effective for severe gerd. once daily October 19, 2014 Active 1 capsule Pravastatin Sodium [facility] [address]-73 40 MG Orally Once a day Active 1 tablet Amlodipine Besylate [facility] [address]-67 2.5 MG Orally Once a day Active 1 tablet Guaifenesin-Codeine [facility] [address]-00 100-10 MG/5ML Orally every 4 hrs Active 5 ml Loperamide HCl [facility] [address]-03 2 MG Orally 8 time(s) a day Active 1 capsule Pantoprazole Sodium [facility] [address]-82 40 MG Orally Once a day Active 1 tablet Estradiol [facility] [address]-71 1 MG Orally Daily for Three Weeks, 1 Week off Active 1 tablet Gabapentin [facility] [address]-52 400 MG Orally Three times a day Active 1 capsule Meclizine HCl [facility] [address]-65 25 MG Orally Once a day Active 1 tablet as needed Tramadol HCl [facility] [address]-11 50 MG Orally every 6 hrs Active 1 tablet as needed Hydrocodone-Acetaminophen [facility] [address]-69 7.5-500 MG Orally every 6 hrs Active 1 tablet as needed Prolia [facility] [address]-76 60 MG/ML Subcutaneous once SC every 6 months in office for osteoporosis. has failed oral bisphosphonates Jul 06, 2014 Jul 01, 2015 Active as directed Levothyroxine Sodium [facility] [address]-62 150 MCG Orally Once a day Active 1 tablet on an empty stomach in the morning Sucralfate [facility] [address]-22 1 GM Orally Twice a day Active 1 tablet on an empty stomach Nitrofurantoin Macrocrystal [facility] [address]-89 100 MG Orally Four times a day Active 1 capsule with food or milk Ropinirole HCl [facility] [address]-37 3 MG Orally Once a day Active 1 tablet 1 to 3 hours before bedtime Stool Softener [facility] [address]-37 100 MG Orally Once a day Active 1 capsule as needed Cilostazol [facility] [address]-71 100 MG Orally Twice a day Active 1 tablet 30 minutes before or 2 hours after breakfast and dinner Social History Social History Element Qualifiers Date Reported Smoking status: . Are you a: Never Smoker February 08, 2015 alcohol no. February 08, 2015 Vital Signs Date/Time: February 08, 2015 Height 63 in Blood Pressure Diastolic 80 mm Hg Blood Pressure Systolic 142 mm Hg Weight 132.2 lbs Summary Purpose eClinicalWorks Submission
--- OUTSIDE RECORDS SUMMARY | 2018-09-02 10:26 | XMS REPORT ---
Author Author Tri Pollard Organization e[employer]Works Address Unknown Phone Unavailable Care Team Providers Care Tire Vulcanizer Name Role Phone Tri Pollard CP Unavailable Encounters Encounter Location Date Follow up Rheumatology Clinic January 09, 2015 routine follow up [facility] February 08, 2015 [facility]ri [facility] February 13, 2015 MRI results [facility] February 16, 2015 simponi injection we use our samples [facility] October 19, 2014 Cimzia injection [facility] November 10, 2014 routine follow up [facility] December 09, 2014 Cimzia [facility] November 21, 2014 MRI results [facility] February 15, 2015 Hand Brace RX [facility] February 16, 2015 Problems Problem Type Condition ICD-9 Code Onset Dates Condition Status Problem Rheumatoid arthritis 714.0 Active Problem osteoporosis-senile 733.01 Active Social History Social History Element Qualifiers Date Reported Smoking status: . Are you a: Never Smoker February 08, 2015 alcohol no. February 08, 2015 Summary Purpose eClinicalWorks Submission
--- OUTSIDE RECORDS SUMMARY | 2018-09-02 10:26 | XMS REPORT ---
Author Author Kaylie Hammond Organization e[employer]Works Address Unknown Phone Unavailable Care Team Providers Care Senior Quantity Surveyor Name Role Phone Kaylie Hammond CP Unavailable Allergies, Adverse Reactions, Alerts Substance Reaction Event Type Cymbalta Altered Mental State Non Drug Allergy Chlordiazepoxide HCl Info Not Available Non Drug Allergy Aspirin Gastric Upset Non Drug Allergy simponi urticaria and allergic dermatitis with oral swelling Non Drug Allergy Penicillin anaphylaxis Non Drug Allergy Methadone Info Not Available Non Drug Allergy Enbrel Info Not Available Non Drug Allergy Encounters Encounter Location Date Follow up Rheumatology Clinic January 09, 2015 routine follow up [facility] February 08, 2015 mri [facility] February 13, 2015 MRI results [facility] February 16, 2015 simponi injection we use our samples [facility] October 19, 2014 new med follow up [facility] Mar 15, 2015 Cimzia injection [facility] November 10, 2014 routine follow up [facility] December 09, 2014 Cimzia [facility] November 21, 2014 MRI results [facility] February 15, 2015 Hand Brace RX [facility] February 16, 2015 Problems Problem Type Condition ICD-9 Code Onset Dates Condition Status Assessment Pain in joint, lower leg 719.46 Active Assessment Personal history of diseases of digestive disease V12.79 Active Problem Rheumatoid arthritis 714.0 Active Assessment Rheumatoid arthritis 714.0 Active Problem osteoporosis-senile 733.01 Active Assessment Pain in joint, hand 719.44 Active Assessment osteoporosis-senile 733.01 Active Assessment monitorring of [employer] V58.69 Active Assessment Counseling NOS V65.40 Active Medications Medication Code System Code Instructions Start Date End Date Status Dosage Stool Softener [facility] [address]-07 100 MG Orally Once a day Active 1 capsule as needed Levothyroxine Sodium [facility] [address]-48 150 MCG Orally Once a day Active 1 tablet on an empty stomach in the morning Meclizine HCl [facility] [address]-07 25 MG Orally Once a day Active 1 tablet as needed Nexium [facility] [address]-11 40 MG Orally name brand only. generic not effective for severe gerd. once daily October 19, 2014 Active 1 capsule Loperamide HCl [facility] [address]-31 2 MG Orally 8 time(s) a day Active 1 capsule Estradiol [facility] [address]-26 1 MG Orally Daily for Three Weeks, 1 Week off Active 1 tablet Pantoprazole Sodium [facility] [address]-23 40 MG Orally Once a day Active 1 tablet Sucralfate [facility] [address]-67 1 GM Orally Twice a day Active 1 tablet on an empty stomach Prolia [facility] [address]-67 60 MG/ML Subcutaneous once SC every 6 months in office for osteoporosis. has failed oral bisphosphonates Jul 06, 2014 Jul 01, 2015 Active as directed Amlodipine Besylate [facility] [address]-49 2.5 MG Orally Once a day Active 1 tablet Xarelto [facility] [address]-41 20 MG Orally Once a day Active 1 tablet with food Simvastatin [facility] [address]-44 20 MG Orally Once a day Active 1 tablet in the evening Nuvigil [facility] [address]-00 150 MG Orally Once a day Active 1 tablet Pravastatin Sodium [facility] [address]-18 40 MG Orally Once a day Active 1 tablet Ropinirole HCl [facility] [address]-46 1 MG Orally Once a day Active 1 tablet 1 to 3 hours before bedtime Vitamin D3 [facility] [address]-95 2000 UNIT Orally Active as directed Hydrocodone-Acetaminophen [facility] [address]-19 7.5-500 MG Orally every 6 hrs Active 1 tablet as needed Cimzia [facility] [address]-93 2 X 200 MG Subcutaneous 00 mg (1 shot) every 2 weeks SC for RA December 09, 2014 Jun 08, 2015 Active 1 Gabapentin [facility] [address]-68 400 MG Orally Three times a day Active 1 capsule Ropinirole HCl [facility] [address]-89 3 MG Orally Once a day Active 1 tablet 1 to 3 hours before bedtime Cilostazol [facility] [address]-49 100 MG Orally Twice a day Active 1 tablet 30 minutes before or 2 hours after breakfast and dinner Promethazine HCl [facility] [address]-96 25 MG Orally Once a day Active 1 tablet at bedtime Guaifenesin-Codeine [facility] [address]-11 100-10 MG/5ML Orally every 4 hrs Active 5 ml Nitrofurantoin Macrocrystal [facility] [address]-65 100 MG Orally Four times a day Active 1 capsule with food or milk Tramadol HCl [facility] [address]-03 50 MG Orally every 6 hrs Active 1 tablet as needed Social History Social History Element Qualifiers Date Reported Smoking status: . Are you a: Never Smoker Mar 15, 2015 alcohol no. Mar 15, 2015 Vital Signs Date/Time: Mar 15, 2015 Height 63 in Blood Pressure Diastolic 70 mm Hg Blood Pressure Systolic 133 mm Hg Weight 131 lbs Summary Purpose eClinicalWorks Submission
--- OUTSIDE RECORDS SUMMARY | 2018-09-02 10:26 | XMS REPORT ---
Author Author Tri Pollard Organization [employer] Address Unknown Phone Unavailable Care Team Providers Care Warehouse Person Name Role Phone Tri Pollard CP Unavailable [...]
--- OUTSIDE RECORDS SUMMARY | 2018-09-02 10:26 | XMS REPORT ---
Author Author Tri Pollard Organization e[employer] Address Unknown Phone Unavailable Care Team Providers Care Biologist Name Role Phone Tri Pollard CP Unavailable [...] [facility] February 16, 2015 new med follow up [facility] Jul 03, 2015 [facility] kit [facility] Jul 07, 2015 Follow up [facility] May 18, 2015 medrol pack [facility] Jun 09, 2015 vitals [facility] Apr 23, 2015 routine fup [facility] Apr 18, 2015 new med follow up [facility] Mar 15, 2015 [facility] Rx [facility] Apr 18, 2015 Problems Problem Type Condition ICD-9 Code Onset Dates Condition Status Problem Rheumatoid arthritis without rheumatoid factor, right hand M06.041 Active Problem osteoporosis-senile 733.01 Active Problem Rheumatoid arthritis without rheumatoid factor, left hand M06.042 Active Problem Rheumatoid arthritis 714.0 Active Social History Social History Element Qualifiers Date Reported Smoking status: . Are you a: Never Smoker Jul 03, 2015 alcohol no. Jul 03, 2015 Summary Purpose eClinicalWorks Submission
--- OUTSIDE RECORDS SUMMARY | 2018-09-02 10:26 | XMS REPORT ---
Author Author Tri Pollard [facility] eClinicalWorks Address Unknown Phone Unavailable Care Team Providers Care Administrative Technician Name Role Phone Tri Pollard CP Unavailable Allergies, Adverse Reactions, Alerts Substance Reaction Event Type Chlordiazepoxide HCl Info Not Available Non Drug Allergy Aspirin Gastric Upset Non Drug Allergy plaquenil urticaria erythematous rash Non Drug Allergy simponi urticaria and allergic dermatitis with oral swelling Non Drug Allergy Penicillin anaphylaxis Non Drug Allergy Methadone Info Not Available Non Drug Allergy Enbrel Info Not Available Non Drug Allergy Cymbalta Altered Mental State Non Drug Allergy Encounters Encounter Location Date [...] 2014 [facility] November 21, 2014 Follow up Routine - [facility] refill [facility] Sep 19, 2015 Prolia rx [facility] Aug 11, 2015 MRI results [facility] February 15, 2015 Hand Brace [facility] February 16, 2015 new med follow up [facility] Jul 03, 2015 [facility] kit [facility] Jul 07, 2015 Follow up [facility] May 18, 2015 medrol pack [facility] Jun 09, 2015 Cimzia kit refill [facility] Sep 26, 2015 vitals [facility] Apr 23, [address] Ly[address] dr [facility] October 12, 2015 routine fup [facility] Apr 18, 2015 new med follow up [facility] Mar 15, 2015 [facility] Rx [facility] Apr 18, 2015 routine/ [facility] inj [facility] Aug 02, 2015 Problems Problem Type Condition ICD-9 Code Onset Dates Condition Status Assessment Chronic pain G89.29 Active Assessment Left wrist pain M25.532 Active Problem Rheumatoid arthritis without rheumatoid factor, right hand M06.041 Active Problem osteoporosis-senile 733.01 Active Problem Rheumatoid arthritis without rheumatoid factor, left hand M06.042 Active Assessment Back muscle spasm M62.830 Active Assessment Upper GI bleed K92.2 Active Problem Rheumatoid arthritis 714.0 Active Assessment Rheumatoid arthritis without rheumatoid factor, left hand M06.042 Active Medications Medication Code System Code Instructions Start Date End Date Status Dosage Pantoprazole Sodium [facility] [address]-41 40 MG Orally Once a day Active 1 tablet Estradiol [facility] [address]-44 1 MG Orally Daily for Three Weeks, 1 Week off Active 1 tablet Tramadol HCl [facility] [address]-67 50 MG Orally every 6 hrs Active 1 tablet as needed Simvastatin [facility] [address]-93 20 MG Orally Once a day Active 1 tablet in the evening Nitrofurantoin Macrocrystal [facility] [address]-75 100 MG Orally Four times a day Active 1 capsule with food or milk Stool Softener [facility] [address]-70 100 MG Orally Once a day Active 1 capsule as needed Cilostazol [facility] [address]-95 100 MG Orally Twice a day Active 1 tablet 30 minutes before or 2 hours after breakfast and dinner Nexium [facility] [address]-96 40 MG Orally name brand only. generic not effective for severe gerd. once daily Active 1 capsule Xarelto [facility] [address]-09 20 MG Orally Once a day Active 1 tablet with food Cefdinir [facility] [address]-30 300 MG Orally every 12 hrs Active 1 capsule Prolia [facility] [address]-01 60 MG/ML Subcutaneous once SC in office every 6 months Aug 11, 2015 February 07, 2016 Active as directed Meclizine HCl [facility] [address]-51 25 MG Orally Once a day Active 1 tablet as needed Ropinirole HCl [facility] [address]-44 3 MG Orally Once a day Active 1 tablet 1 to 3 hours before bedtime Levothyroxine Sodium [facility] [address]-52 150 MCG Orally Once a day Active 1 tablet on an empty stomach in the morning Nuvigil [facility] [address]-50 150 MG Orally Once a day Active 1 tablet Gabapentin [facility] [address]-17 400 MG Orally Three times a day Active 1 capsule Promethazine HCl [facility] [address]-26 25 MG Orally Once a day Active 1 tablet at bedtime Amlodipine Besylate [facility] [address]-19 2.5 MG Orally Once a day Active 1 tablet Sucralfate [facility] [address]-47 1 GM Orally Twice a day Active 1 tablet on an empty stomach Cimzia Prefilled [facility] 73726386315 2 X 200 MG/ML Active INJECT CONTENTS OF ONE SYRINGE SUBCUTANEOUSLY EVERY TWO WEEKS Loperamide HCl [facility] [address]-96 2 MG Orally 8 time(s) a day Active 1 capsule Pravastatin Sodium [facility] [address]-28 40 MG Orally Once a day Active 1 tablet Cyclobenzaprine HCl [facility] [address]-81 5 mg Orally bedtime Active 1 tablet Guaifenesin-Codeine [facility] [address]-13 100-10 MG/5ML Orally every 4 hrs Active 5 ml Ropinirole HCl [facility] [address]-54 1 MG Orally Once a day Active 1 tablet 1 to 3 hours before bedtime Acetaminophen-Codeine [facility] [address]-26 300-30 MG Orally every 6 hrs Active 1 tablet as needed Clindamycin HCl [facility] [address]-70 300 MG Orally every 6 hrs Active 1 capsule Vitamin D3 [facility] [address]-43 2000 UNIT Orally Active as directed Social History Social History Element Qualifiers Date Reported Smoking status: . Are you a: Never Smoker October 12, 2015 alcohol no. October 12, 2015 Vital Signs Date/Time: October 12, 2015 Height 63 in Blood Pressure Diastolic 72 mm Hg Blood Pressure Systolic 120 mm Hg Weight 135.6 lbs Summary Purpose eClinicalWorks Submission
--- OUTSIDE RECORDS SUMMARY | 2018-09-02 10:26 | XMS REPORT ---
Author Author Tri Pollard Organization [employer] Address Unknown Phone Unavailable Care Team Providers Care Auto Striper Name Role Phone Tri Pollard CP Unavailable [...] ICD-9 Code Onset Dates Condition Status Assessment Upper GI bleed K92.2 Active Assessment Pain in joint of left hand M79.642 Active Assessment Back muscle spasm M62.830 Active Assessment Chronic pain G89.29 Active Problem Rheumatoid arthritis without rheumatoid factor, right hand M06.041 Active Problem osteoporosis-senile 733.01 Active Problem Rheumatoid arthritis without rheumatoid factor, left hand M06.042 Active Assessment Rheumatoid arthritis without rheumatoid factor, right hand M06.041 Active Assessment Rash and other nonspecific skin eruption R21 Active Problem Rheumatoid arthritis 714.0 Active Assessment Rheumatoid arthritis without rheumatoid factor, left hand M06.042 Active Medications Medication Code System Code Instructions Start Date End Date Status Dosage Cilostazol [facility] [address]-38 100 MG Orally Twice a day Active 1 tablet 30 minutes before or 2 hours after breakfast and dinner Nitrofurantoin Macrocrystal [facility] [address]-77 100 MG Orally Four times a day Active 1 capsule with food or milk Vitamin D3 [facility] [address]-87 2000 UNIT Orally Active as directed Cyclobenzaprine HCl [facility] [address]-79 5 mg Orally bedtime Aug 02, 2015 Active 1 tablet Estradiol [facility] [address]-11 1 MG Orally Daily for Three Weeks, 1 Week off Active 1 tablet Sucralfate [facility] [address]-06 1 GM Orally Twice a day Active 1 tablet on an empty stomach Nexium [facility] [address]-36 40 MG Orally name brand only. generic not effective for severe gerd. once daily October 19, 2014 Active 1 capsule Amlodipine Besylate [facility] [address]-90 2.5 MG Orally Once a day Active 1 tablet Ropinirole HCl [facility] [address]-33 1 MG Orally Once a day Active 1 tablet 1 to 3 hours before bedtime Xarelto [facility] [address]-45 20 MG Orally Once a day Active 1 tablet with food Simvastatin [facility] [address]-66 20 MG Orally Once a day Active 1 tablet in the evening Pantoprazole Sodium [facility] [address]-08 40 MG Orally Once a day Active 1 tablet Acetaminophen-Codeine [facility] [address]-59 300-30 MG Orally every 6 hrs May 18, 2015 Active 1 tablet as needed Cimzia Prefilled [facility] 33745318743 2 X 200 MG/ML Active INJECT CONTENTS OF ONE SYRINGE SUBCUTANEOUSLY EVERY TWO WEEKS Ropinirole HCl [facility] [address]-52 3 MG Orally Once a day Active 1 tablet 1 to 3 hours before bedtime Levothyroxine Sodium [facility] [address]-41 150 MCG Orally Once a day Active 1 tablet on an empty stomach in the morning Gabapentin [facility] [address]-95 400 MG Orally Three times a day Active 1 capsule Stool Softener [facility] [address]-59 100 MG Orally Once a day Active 1 capsule as needed Meclizine HCl [facility] [address]-28 25 MG Orally Once a day Active 1 tablet as needed Loperamide HCl [facility] [address]-78 2 MG Orally 8 time(s) a day Active 1 capsule Promethazine HCl [facility] [address]-01 25 MG Orally Once a day Active 1 tablet at bedtime Nuvigil [facility] [address]-73 150 MG Orally Once a day Active 1 tablet Tramadol HCl [facility] [address]-38 50 MG Orally every 6 hrs Active 1 tablet as needed Guaifenesin-Codeine [facility] [address]-90 100-10 MG/5ML Orally every 4 hrs Active 5 ml Pravastatin Sodium [facility] [address]-74 40 MG Orally Once a day Active 1 tablet Social History Social History Element Qualifiers Date Reported Smoking status: . Are you a: Never Smoker Aug 02, 2015 alcohol no. Aug 02, 2015 Vital Signs Date/Time: Aug 02, 2015 Height 63 in Blood Pressure Diastolic 69 mm Hg Blood Pressure Systolic 143 mm Hg Weight 138.0 lbs Summary Purpose eClinicalWorks Submission
--- OUTSIDE RECORDS SUMMARY | 2018-09-02 10:26 | XMS REPORT ---
Author Author Tri Pollard Organization [employer] Address Unknown Phone Unavailable Care Team Providers Care Auctioneer Tobacco Name Role Phone Tri Pollard CP Unavailable [...] [facility]ace [facility] February 16, 2015 Follow up Rheumatology Clinic May 18, [...] M06.042 Active Problem Rheumatoid arthritis 714.0 Active Medications Medication Code System Code Instructions Start Date End Date Status Dosage Medrol (Riky) MEDISPAN [address]-72 4 MG Orally as directed Jun 09, 2015 Jun 15, 2015 Active as directed Social History Social History Element Qualifiers Date Reported Smoking status: . Are you a: Never Smoker May 18, 2015 alcohol no. May 18, 2015 Summary Purpose eClinicalWorks Submission
--- OUTSIDE RECORDS SUMMARY | 2018-09-02 10:26 | XMS REPORT ---
Author Author Tri Pollard Organization [employer] Address Unknown Phone Unavailable Care Team Providers Care Tank Tender Name Role Phone Tri Pollard CP Unavailable [...] 2014 [facility] November 21, 2014 Prolia rx [facility] Aug 11, 2015 [...] Start Date End Date Status Dosage Prolia MEDISPAN [address]-05 60 MG/ML Subcutaneous once SC in office every 6 months Aug 11, 2015 February 07, 2016 Active as directed Social History Social History Element Qualifiers Date Reported Smoking status: . Are you a: Never Smoker Aug 02, 2015 alcohol no. Aug 02, 2015 Summary Purpose eClinicalWorks Submission
--- OUTSIDE RECORDS SUMMARY | 2018-09-02 10:26 | XMS REPORT ---
Author Author Tri Pollard Organization [employer] Address Unknown Phone Unavailable Care Team Providers Care Sexual Health Physician Name Role Phone Tri Pollard CP Unavailable [...] Condition Status Problem Rheumatoid arthritis 714.0 Active Social History Social History Element Qualifiers Date Reported Smoking status: . Are you a: Never Smoker February 08, 2015 alcohol no. February 08, 2015 Summary Purpose eClinicalWorks Submission
--- OUTSIDE RECORDS SUMMARY | 2018-09-02 10:26 | XMS REPORT ---
Author Author Tri Pollard Organization [employer] Address Unknown Phone Unavailable Care Team Providers Care Missile Technician Name Role Phone Tri Pollard CP Unavailable Allergies, Adverse Reactions, Alerts Substance Reaction Event Type Cymbalta Altered Mental State Non Drug Allergy Chlordiazepoxide HCl Info Not Available Non Drug Allergy simponi urticaria and allergic dermatitis with oral swelling Non Drug Allergy Penicillin anaphylaxis Non Drug Allergy Aspirin Gastric Upset Non Drug Allergy plaquenil urticaria erythematous rash Non Drug Allergy Methadone Info Not Available [...] Enbrel Info Not Available Non Drug Allergy Problems Problem Type Condition Code Onset Dates Condition Status Assessment Gastritis K29.70 Active Assessment Back muscle spasm M62.830 Active Assessment Chronic pain G89.29 Active Problem Rheumatoid arthritis without rheumatoid factor, left hand M06.042 Active Problem osteoporosis-senile 733.01 Active Problem Rheumatoid arthritis without rheumatoid factor, right hand M06.041 Active Assessment Osteoporosis M81.0 Active Assessment Rheumatoid arthritis without rheumatoid factor, left hand M06.042 Active Problem Rheumatoid arthritis 714.0 Active Assessment Low back pain M54.5 Active Assessment CUAUHTEMOC positive R76.8 Active Assessment Cellulitis of left forearm L03.114 Active Assessment Effusion of right olecranon bursa M25.421 Active Assessment Neck muscle spasm M62.838 Active Assessment Anemia D64.9 Active Medications Medication Code System Code Instructions Start Date End Date Status Dosage Multivital [place] NDC 0 Active not defined Tizanidine HCl ND 96833731463 2 MG Orally Three times a day Active 1 capsule as needed Prolia ND 08157892377 60 MG/ML Subcutaneous Jun 11, 2018 Active as directed Lamisil ND 17834930263 Orally Once a day Active 1 tablet Dapsone [facility] 52166562747 25 MG Orally Once a day Active 1 tablet Estradiol [facility] 47636818657 1 MG Orally Daily for Three Weeks, 1 Week off Active 1 tablet Amlodipine Besylate [facility] 52754247748 2.5 MG Orally Once a day Active 1 tablet Loperamide HCl [facility] 09226641759 2 MG Orally 8 time(s) a day PRN Active 1 capsule Omeprazole [facility] 25922426249 40 MG Orally Once a day Active 1 capsule Paxil [facility] 72491573999 10 MG Orally Once a day Active 1 tablet in the morning Furosemide [facility] 41299166199 20 MG Orally Once a day Active 1 tablet Ropinirole HCl [facility] 44783152064 3 MG Orally Once a day Active 1 tablet 1 to 3 hours before bedtime Dexilant [facility] 49575991676 60 MG Orally Once a day Active 1 capsule Gabapentin [facility] 57943770380 400 MG Orally Three times a day Active 1 capsule Levothyroxine Sodium [facility] 28760652600 150 MCG Orally Once a day Active 1 tablet on an empty stomach in the morning Sucralfate [facility] 94611779164 1 GM Orally Twice a day Active 1 tablet on an empty stomach Cyanocobalamin [facility] [address]-53 1000 MCG Orally Once a day Active 1 tablet Pravastatin Sodium [facility] 07431435917 40 MG Orally Once a day Active 1 tablet Pantoprazole Sodium [facility] 15539600630 40 MG Orally Once a day Active 1 tablet Cephalexin [facility] 41163831833 500 MG Orally every 12 hrs Mar 11, 2018 Active 1 capsule Triamcinolone Acetonide [facility] 85675874517 0.1 % Externally Twice a day Active 1 application to affected area Tessalon Perles [facility] 24478111011 100 MG Orally Three times a day Active 1 capsule as needed Zantac 75 [facility] 45516857760 75 MG Orally Twice a day Active 1 tablet as needed Artificial Tears [facility] 24332994607 0.2-0.2-1 % Ophthalmic 24 time(s) a day Active 1 drop into affected eye as needed Leflunomide [facility] 23243949998 20 MG Orally Once a day Active 1 tablet Pataday [facility] 15170043238 0.2 % Ophthalmic Active as directed Cimzia Prefilled [facility] 35570203085 2 X 200 MG/ML Subcutaneous 1 shot every 2 weeks Active inject contents of one syringe subcutaneously every two weeks Nuvigil [facility] 47433832514 150 MG Orally Once a day Active 1 tablet Meclizine HCl [facility] 86086401907 25 MG Orally Once a day PRN Active 1 tablet as needed Cholestyramine [facility] 50256117244 4 GM Orally Twice a day Active 1 packet mixed with water or non-carbonated drink Simvastatin ND 84459627400 20 MG Orally Once a day Active 1 tablet in the evening Lipitor [facility] 83098878540 10 MG Orally Once a day Active 1 tablet Guaifenesin [facility] 87598547401 100 MG/5ML Orally every 4 hrs Active 10 ml as needed Stool Softener [facility] 85291405237 100 MG Orally Once a day Active 1 capsule as needed Rivaroxaban [facility] [address]-36 20 MG Orally Once a day Active 1 tablet with food Hydrocodone-Acetaminophen [facility] 77839859616 7.5-325 MG/15ML Orally every 6 hrs Active 5 ml as needed Zofran [facility] 70368302744 8 MG Orally Twice a day Active 1 tablet Vitamin C [facility] 57749426366 500 MG Orally Once a day Active 1 tablet Kaopectate [facility] 85189773001 262 MG/15ML Orally 8 time(s) a day Active 30 ml as needed Mylanta [facility] 89856186465 200-200-20 MG/5ML Orally Four times a day Active 10 ml as needed Pepto-Bismol [facility] 84128333095 262 MG Orally 8 time(s) a day Active 2 tablets as needed Promethazine HCl [facility] 14595544808 25 MG Orally Once a day PRN Active 1 tablet at bedtime Acetaminophen [facility] 51070707073 325 MG Orally every 4 hrs Active 1 tablet as needed Myrbetriq [facility] 89112676778 25 MG Orally Once a day Active 1 tablet Cyclobenzaprine HCl [facility] 60258515695 5 mg Orally bedtime Active 1 tablet Lomotil [facility] 62047469044 2.5-0.025 MG Orally Four times a day Active 1 tablet as needed Medrol [facility] 34091940660 4 MG Orally Once a day Jul 23, 2017 Active as directed Zantac [facility] 71278073448 150 MG Orally Once a day Active 1 tablet at bedtime Diclofenac Sodium [facility] 55533002386 1 % Transdermal Active not defined Ferrous Sulfate [facility] 24769952867 325 (65 Fe) MG Orally Once a day Active 1 tablet Esperanza Allergy [facility] 98049011673 180 MG Orally Once a day Active 1 tablet as needed Ropinirole HCl [facility] 20460114495 1 MG Orally Once a day Active 1 tablet 1 to 3 hours before bedtime HydrOXYzine HCl [facility] 14977920607 50 MG Orally every 6 hrs Active 1 tablet as needed Prolia [facility] 80963395954 60 MG/ML Subcutaneous Active not defined Cilostazol [facility] 30244685757 100 MG Orally Twice a day Active 1 tablet 30 minutes before or 2 hours after breakfast and dinner Vitamin D3 [facility] 83694023402 2000 UNIT Orally Active as directed Xarelto [facility] 35575250673 20 MG Orally Once a day Active 1 tablet with food Carafate [facility] 00794422509 1 GM/10ML Orally Twice a day Active 10 ml at bedtime on an empty stomach before meals Vital Signs Date/Time: Jun 11, 2018 Height 63 in Blood Pressure Diastolic 62 mm Hg Blood Pressure Systolic 106 mm Hg Weight 128.8 lbs Results No Known Results Summary Purpose eClinicalWorks Submission
--- OUTSIDE RECORDS SUMMARY | 2018-09-02 10:26 | XMS REPORT ---
Author Author Tri Pollard Organization [employer] Address Unknown Phone Unavailable Care Team Providers Care Molding And Trim Installer Name Role Phone Tri Pollard CP Unavailable [...] Date End Date Status Dosage Cimzia Prefilled MEDISPAN [address]-49 2 X 200 MG/ML Subcutaneous Every 2 weeks October 26, 2015 Active INJECT CONTENTS OF ONE SYRINGE SUBCUTANEOUSLY EVERY TWO WEEKS Social History Social History Element Qualifiers Date Reported Smoking status: . Are you a: Never Smoker Sep 19, 2015 alcohol no. Sep 19, 2015 Summary Purpose eClinicalWorks Submission
--- OUTSIDE RECORDS SUMMARY | 2018-09-02 10:26 | XMS REPORT ---
Author Author Kaylie Hammond Organization [employer] Address Unknown Phone Unavailable Care Team Providers Care Construction Or Leak Gang Laborer Name Role Phone Kaylie Hammond CP Unavailable Allergies, Adverse Reactions, Alerts Substance Reaction Event Type Aspirin Gastric Upset Non Drug Allergy simponi urticaria and allergic dermatitis with oral swelling Non Drug Allergy Penicillin anaphylaxis Non Drug Allergy Methadone Info Not Available Non Drug Allergy Enbrel Info Not Available Non Drug Allergy Cymbalta Altered Mental State Non Drug Allergy Chlordiazepoxide HCl Info Not Available Non Drug Allergy Encounters Encounter Location Date simponi injection we use our samples [facility] October 19, 2014 Cimzia injection [facility] November 10, 2014 routine follow up [facility] December 09, 2014 Problems Problem Type Condition ICD-9 Code Onset Dates Condition Status Assessment Pain in joint, multiple sites 719.49 Active Assessment monitorring of [employer] V58.69 Active Problem Rheumatoid arthritis 714.0 Active Assessment Pain in joint, lower leg 719.46 Active Assessment Rheumatoid arthritis 714.0 Active Assessment Counseling NOS V65.40 Active Medications Medication Code System Code Instructions Start Date End Date Status Dosage Prolia [employer] [address]-12 60 MG/ML Subcutaneous once SC every 6 months in office for osteoporosis. has failed oral bisphosphonates Jul 06, 2014 Jul 01, 2015 Active as directed Nexium [facility] [address]-36 40 MG Orally name brand only. generic not effective for severe gerd. once daily October 19, 2014 Active 1 capsule Gabapentin [facility] [address]-13 400 MG Orally Three times a day Active 1 capsule Pravastatin Sodium [facility] [address]-77 40 MG Orally Once a day Active 1 tablet Guaifenesin-Codeine [facility] [address]-35 100-10 MG/5ML Orally every 4 hrs Active 5 ml Loperamide HCl [facility] [address]-24 2 MG Orally 8 time(s) a day Active 1 capsule Simvastatin [facility] [address]-39 20 MG Orally Once a day Active 1 tablet in the evening Cimzia [facility] [address]-60 2 X 200 MG Subcutaneous 00 mg (1 shot) every 2 weeks SC for RA December 09, 2014 Mar 09, 2015 Active 1 Nuvigil [facility] [address]-88 150 MG Orally Once a day Active 1 tablet Vitamin D3 [facility] [address]-43 2000 UNIT Orally Active as directed Acetaminophen [facility] [address]-18 325 MG Orally every 6 hrs Active 1 tablet as needed Nitrofurantoin Macrocrystal [facility] [address]-72 100 MG Orally Four times a day Active 1 capsule with food or milk Promethazine HCl [facility] [address]-43 25 MG Orally Once a day Active 1 tablet at bedtime Tramadol HCl [facility] [address]-78 50 MG Orally every 6 hrs Active 1 tablet as needed Meclizine HCl [facility] [address]-06 25 MG Orally Once a day Active 1 tablet as needed Ropinirole HCl [facility] [address]-84 1 MG Orally Once a day Active 1 tablet 1 to 3 hours before bedtime Xarelto [facility] [address]-22 20 MG Orally Once a day Active 1 tablet with food Estradiol [facility] [address]-43 1 MG Orally Daily for Three Weeks, 1 Week off Active 1 tablet Hydrocodone-Acetaminophen [facility] [address]-17 7.5-500 MG Orally every 6 hrs Active 1 tablet as needed Levothyroxine Sodium [facility] [address]-24 150 MCG Orally Once a day Active 1 tablet on an empty stomach in the morning Sucralfate [facility] [address]-45 1 GM Orally Twice a day Active 1 tablet on an empty stomach Pantoprazole Sodium [facility] [address]-97 40 MG Orally Once a day Active 1 tablet Amlodipine Besylate [facility] [address]-58 2.5 MG Orally Once a day Active 1 tablet Ropinirole HCl [facility] [address]-81 3 MG Orally Once a day Active 1 tablet 1 to 3 hours before bedtime Stool Softener [facility] [address]-51 100 MG Orally Once a day Active 1 capsule as needed Cilostazol [facility] [address]-20 100 MG Orally Twice a day Active 1 tablet 30 minutes before or 2 hours after breakfast and dinner Social History Social History Element Qualifiers Date Reported Smoking status: . Are you a: Never Smoker December 09, 2014 Vital Signs Date/Time: December 09, 2014 Height 63 in Blood Pressure Diastolic 69 mm Hg Blood Pressure Systolic 121 mm Hg Weight 134 lbs Summary Purpose eClinicalWorks Submission
--- OUTSIDE RECORDS SUMMARY | 2018-09-02 10:26 | XMS REPORT ---
Author Author Tri Pollard Organization [employer] Address Unknown Phone Unavailable Care Team Providers Care Diamond Blender Name Role Phone Tri Pollard CP Unavailable Allergies, Adverse Reactions, Alerts Substance Reaction Event Type Enbrel Info Not Available Non Drug Allergy Methadone Info Not Available Non Drug Allergy Chlordiazepoxide HCl Info Not Available Non Drug Allergy Aspirin Gastric Upset Non Drug Allergy plaquenil urticaria erythematous rash Non Drug Allergy simponi urticaria and allergic dermatitis with oral swelling Non Drug Allergy Penicillin anaphylaxis Non Drug Allergy Cymbalta Altered Mental State [...] follow up [facility] Jul 03, 2015 Follow up [facility] May 18, 2015 medrol pack [facility] Jun 09, 2015 vitals [facility] Apr 23, 2015 routine fup [facility] Apr 18, 2015 new med follow up [facility] Mar 15, 2015 Cimzia Rx [facility] Apr 18, 2015 Problems Problem Type Condition ICD-9 Code Onset Dates Condition Status Assessment Pain in joint of right hand M79.641 Active Assessment Counseling NOS Z71.9 Active Assessment Pain in joint of left hand M79.642 Active Problem Rheumatoid arthritis without rheumatoid factor, [...] Instructions Start Date End Date Status Dosage Gabapentin [facility] [address]-13 400 MG Orally Three times a day Active 1 capsule Plaquenil [facility] [address]-97 200 MG Orally Once a day May 18, 2015 Aug 16, 2015 Inactive 1 tablet with food or milk Ropinirole HCl [facility] [address]-61 1 MG Orally Once a day Active 1 tablet 1 to 3 hours before bedtime Levothyroxine Sodium [facility] [address]-55 150 MCG Orally Once a day Active 1 tablet on an empty stomach in the morning Xarelto [facility] [address]-56 20 MG Orally Once a day Active 1 tablet with food Estradiol [facility] [address]-88 1 MG Orally Daily for Three Weeks, 1 Week off Active 1 tablet Nuvigil [facility] [address]-27 150 MG Orally Once a day Active 1 tablet Acetaminophen-Codeine [facility] [address]-80 300-30 MG Orally every 6 hrs May 18, 2015 Active 1 tablet as needed Vitamin D3 [facility] [address]-39 2000 UNIT Orally Active as directed Hydrocodone-Acetaminophen [facility] [address]-89 7.5-500 MG Orally every 6 hrs Inactive 1 tablet as needed Promethazine HCl [facility] [address]-81 25 MG Orally Once a day Active 1 tablet at bedtime Loperamide HCl [facility] [address]-66 2 MG Orally 8 time(s) a day Active 1 capsule Pantoprazole Sodium [facility] [address]-25 40 MG Orally Once a day Active 1 tablet Pravastatin Sodium [facility] [address]-89 40 MG Orally Once a day Active 1 tablet Ropinirole HCl [facility] [address]-35 3 MG Orally Once a day Active 1 tablet 1 to 3 hours before bedtime Amlodipine Besylate [facility] [address]-29 2.5 MG Orally Once a day Active 1 tablet Cimzia [facility] [address]-90 2 X 200 MG Subcutaneous 00 mg (1 shot) every 2 weeks SC for RA December 09, 2014 Jun 08, 2015 Active 1 Stool Softener [facility] [address]-48 100 MG Orally Once a day Active 1 capsule as needed Sucralfate [facility] [address]-12 1 GM Orally Twice a day Active 1 tablet on an empty stomach Cilostazol [facility] [address]-76 100 MG Orally Twice a day Active 1 tablet 30 minutes before or 2 hours after breakfast and dinner Guaifenesin-Codeine [facility] [address]-91 100-10 MG/5ML Orally every 4 hrs Active 5 ml Meclizine HCl [facility] [address]-21 25 MG Orally Once a day Active 1 tablet as needed Tramadol HCl [facility] [address]-48 50 MG Orally every 6 hrs Active 1 tablet as needed Nitrofurantoin Macrocrystal [facility] [address]-67 100 MG Orally Four times a day Active 1 capsule with food or milk Nexium [facility] [address]-65 40 MG Orally name brand only. generic not effective for severe gerd. once daily October 19, 2014 Active 1 capsule Simvastatin [facility] [address]-98 20 MG Orally Once a day Active 1 tablet in the evening Social History Social History Element Qualifiers Date Reported Smoking status: . Are you a: Never Smoker Jul 03, 2015 alcohol no. Jul 03, 2015 Vital Signs Date/Time: Jul 03, 2015 Height 63 in Blood Pressure Diastolic 85 mm Hg Blood Pressure Systolic 165 mm Hg Weight 141.4 lbs Summary Purpose eClinicalWorks Submission
--- OUTSIDE RECORDS SUMMARY | 2018-09-02 10:26 | XMS REPORT ---
Author Author Tri Pollard Organization [employer] Address Unknown Phone Unavailable Care Team Providers Care Clinical Services Consultant Name Role Phone Tri Pollard CP Unavailable [...] Instructions Start Date End Date Status Dosage Loperamide HCl [facility] [address]-62 2 MG Orally 8 time(s) a day Active 1 capsule Promethazine HCl [facility] [address]-36 25 MG Orally Once a day Active 1 tablet at bedtime Amlodipine Besylate [facility] [address]-51 2.5 MG Orally Once a day Active 1 tablet Ropinirole HCl [facility] [address]-78 3 MG Orally Once a day Active 1 tablet 1 to 3 hours before bedtime Nuvigil [facility] [address]-28 150 MG Orally Once a day Active 1 tablet Cyclobenzaprine HCl [facility] [address]-46 5 mg Orally bedtime Active 1 tablet Nexium [facility] [address]-34 40 MG Orally name brand only. generic not effective for severe gerd. once daily Active 1 capsule Guaifenesin-Codeine [facility] [address]-15 100-10 MG/5ML Orally every 4 hrs Active 5 ml Stool Softener [facility] [address]-55 100 MG Orally Once a day Active 1 capsule as needed Xarelto [facility] [address]-78 20 MG Orally Once a day Active 1 tablet with food Pravastatin Sodium [facility] [address]-83 40 MG Orally Once a day Active 1 tablet Clindamycin HCl [facility] [address]-93 300 MG Orally every 6 hrs Active 1 capsule Acetaminophen-Codeine [facility] [address]-35 300-30 MG Orally every 6 hrs Active 1 tablet as needed Gabapentin [facility] [address]-00 400 MG Orally Three times a day Active 1 capsule Nitrofurantoin Macrocrystal [facility] [address]-97 100 MG Orally Four times a day Active 1 capsule with food or milk Cilostazol [facility] [address]-99 100 MG Orally Twice a day Active 1 tablet 30 minutes before or 2 hours after breakfast and dinner Ropinirole HCl [facility] [address]-92 1 MG Orally Once a day Active 1 tablet 1 to 3 hours before bedtime Sucralfate [facility] [address]-88 1 GM Orally Twice a day Active 1 tablet on an empty stomach Vitamin D3 [facility] [address]-22 2000 UNIT Orally Active as directed Levothyroxine Sodium [facility] [address]-57 150 MCG Orally Once a day Active 1 tablet on an empty stomach in the morning Cyclobenzaprine HCl [facility] [address]-70 5 mg Orally bedtime Aug 02, 2015 Active 1 tablet Estradiol [facility] [address]-21 1 MG Orally Daily for Three Weeks, 1 Week off Active 1 tablet Prolia [facility] [address]-27 60 MG/ML Subcutaneous once SC in office every 6 months Aug 11, 2015 February 07, 2016 Active as directed Simvastatin [facility] [address]-04 20 MG Orally Once a day Active 1 tablet in the evening Meclizine HCl [facility] [address]-07 25 MG Orally Once a day Active 1 tablet as needed Cefdinir [facility] [address]-38 300 MG Orally every 12 hrs Active 1 capsule Tramadol HCl [facility] [address]-02 50 MG Orally every 6 hrs Active 1 tablet as needed Pantoprazole Sodium [facility] [address]-90 40 MG Orally Once a day Active 1 tablet Cimzia Prefilled [facility] 65426433217 2 X 200 MG/ML Active INJECT CONTENTS OF ONE SYRINGE SUBCUTANEOUSLY EVERY TWO WEEKS Social History Social History Element Qualifiers Date Reported Smoking status: . Are you a: Never Smoker Sep 19, 2015 alcohol no. Sep 19, 2015 Vital Signs Date/Time: Sep 19, 2015 Height 63 in Blood Pressure Diastolic 72 mm Hg Blood Pressure Systolic 139 mm Hg Weight 133 lbs Summary Purpose eClinicalWorks Submission
--- OUTSIDE RECORDS SUMMARY | 2018-09-02 10:26 | XMS REPORT ---
Author Author Tri Pollard Organization [employer] Address Unknown Phone Unavailable Care Team Providers Care Set Off Press Operator Name Role Phone Tri Pollard CP [...]
--- OUTSIDE RECORDS SUMMARY | 2018-09-02 10:27 | XMS REPORT ---
Author Author Tri Pollard [facility] [employer] Address Unknown Phone Unavailable Care Team Providers Care Electronics Computer Mechanic Name Role Phone Tri Pollard CP Unavailable Encounters Encounter Location Date [facility]im[facility] November 21, 2014 Follow up 4 Month/labs [facility] October 10, 2016 Prolia-Spec Pharm [facility] Jul 11, 2016 new med follow up [facility] Jul [...] cimzia inj [facility] Aug 02, 2015 Follow up [facility] January 09, 2015 routine follow up [facility] February 08, 2015 mri [facility] February 13, 2015 MRI results [facility] February 16, 2015 simponi injection we use our samples [facility] October 19, 2014 Cimzia injection [facility] November 10, 2014 routine follow up [facility] December 09, 2014 Follow up Routine - Cimzia refill [facility] Sep 19, 2015 Prolia rx [facility] Aug 11, 2015 MRI results [facility] February 15, 2015 Hand Brace RX [facility] February 16, 2015 Follow up 3 Month [facility] January 11, 2016 Follow up 4 wks, leflunomide mngmt [facility] February 13, 2016 Cimzia refill [facility] Apr 12, 2016 Follow up 4 Month [facility] Jun 18, 2016 Cimzia kit refill [facility] Sep 26, [address] Cimzia Lypholyzed-per dr [facility] October 12, 2015 Unknown [facility] October 25, 2015 lab results,add leflunomide [facility] January 12, 2016 Problems Problem Type Condition ICD-9 Code Onset Dates Condition Status Assessment Anemia D64.9 Active Assessment Osteoporosis M81.0 Active Assessment Gastritis K29.70 Active Assessment Effusion of right olecranon bursa M25.421 Active Assessment Rash R21 Active Problem Rheumatoid arthritis without rheumatoid factor, right hand M06.041 Active Problem osteoporosis-senile 733.01 Active Problem Rheumatoid arthritis without rheumatoid factor, left hand M06.042 Active Assessment Back muscle spasm M62.830 Active Assessment Chronic pain G89.29 Active Problem Rheumatoid arthritis 714.0 Active Assessment Rheumatoid arthritis without rheumatoid factor, left hand M06.042 Active Medications Medication Code System Code Instructions Start Date End Date Status Dosage Ropinirole HCl [facility] [address]-30 1 MG Orally Once a day Active 1 tablet 1 to 3 hours before bedtime Cimzia Prefilled [facility] 35950943626 2 X 200 MG/ML Active INJECT CONTENTS OF ONE SYRINGE SUBCUTANEOUSLY EVERY TWO WEEKS Prolia [facility] [address]-04 60 MG/ML Subcutaneous Active Unknown Loperamide HCl [facility] [address]-68 2 MG Orally 8 time(s) a day PRN Active 1 capsule Xarelto [facility] [address]-97 20 MG Orally Once a day Active 1 tablet with food Sucralfate [facility] [address]-41 1 GM Orally Twice a day Active 1 tablet on an empty stomach Estradiol [facility] [address]-34 1 MG Orally Daily for Three Weeks, 1 Week off Active 1 tablet Meclizine HCl [facility] [address]-61 25 MG Orally Once a day PRN Active 1 tablet as needed Levothyroxine Sodium [facility] [address]-18 150 MCG Orally Once a day Active 1 tablet on an empty stomach in the morning Gabapentin [facility] [address]-86 400 MG Orally Three times a day Active 1 capsule Promethazine HCl [facility] [address]-03 25 MG Orally Once a day PRN Active 1 tablet at bedtime Cyclobenzaprine HCl [facility] [address]-06 5 mg Orally bedtime Active 1 tablet Lamisil [facility] [address]-67 Orally Once a day Active 1 tablet Nuvigil [facility] [address]-01 150 MG Orally Once a day Active 1 tablet Pravastatin Sodium [facility] [address]-16 40 MG Orally Once a day Active 1 tablet Ropinirole HCl [facility] [address]-18 3 MG Orally Once a day Active 1 tablet 1 to 3 hours before bedtime Stool Softener [facility] [address]-89 100 MG Orally Once a day Active 1 capsule as needed Pantoprazole Sodium [facility] [address]-63 40 MG Orally Once a day Active 1 tablet Acetaminophen-Codeine [facility] [address]-92 300-30 MG Orally every 6 hrs Active 1 tablet as needed Amlodipine Besylate [facility] [address]-32 2.5 MG Orally Once a day Active 1 tablet Vitamin D3 [facility] [address]-08 2000 UNIT Orally Active as directed Cilostazol [facility] [address]-21 100 MG Orally Twice a day Active 1 tablet 30 minutes before or 2 hours after breakfast and dinner Simvastatin [facility] [address]-90 20 MG Orally Once a day Active 1 tablet in the evening Social History Social History Element Qualifiers Date Reported Smoking status: . Are you a: Never Smoker October 10, 2016 alcohol no. October 10, 2016 Vital Signs Date/Time: October 10, 2016 Height 63 in Blood Pressure Diastolic 92 mm Hg Blood Pressure Systolic 146 mm Hg Weight 129.4 lbs Summary Purpose eClinicalWorks Submission
--- OUTSIDE RECORDS SUMMARY | 2018-09-02 10:27 | XMS REPORT ---
Author Author Tri Pollard Organization [employer] Address Unknown Phone Unavailable Care Team Providers Care Funeral Home Attendant Name Role Phone Tri Pollard CP [...] Non Drug Allergy Encounters Encounter Location Date [facility] November 21, 2014 new med follow up [facility]umatology Clinic Jul [...] ICD-9 Code Onset Dates Condition Status Assessment Gastritis K29.70 Active Assessment Left wrist pain M25.532 Active Assessment Osteoporosis M81.0 Active Assessment Rash R21 Active Assessment Anemia D64.9 Active Problem Rheumatoid arthritis without rheumatoid factor, [...] Date End Date Status Dosage Ropinirole HCl [facility] [address]-23 1 MG Orally Once a day Active 1 tablet 1 to 3 hours before bedtime Levothyroxine Sodium [facility] [address]-02 150 MCG Orally Once a day Active 1 tablet on an empty stomach in the morning Stool Softener [facility] [address]-10 100 MG Orally Once a day Active 1 capsule as needed Simvastatin [facility] [address]-84 20 MG Orally Once a day Active 1 tablet in the evening Promethazine HCl [facility] [address]-05 25 MG Orally Once a day PRN Active 1 tablet at bedtime Gabapentin [facility] [address]-90 400 MG Orally Three times a day Active 1 capsule Pravastatin Sodium [facility] [address]-17 40 MG Orally Once a day Active 1 tablet Vitamin D3 [facility] [address]-31 2000 UNIT Orally Active as directed Amlodipine Besylate [facility] [address]-78 2.5 MG Orally Once a day Active 1 tablet Cyclobenzaprine HCl [facility] [address]-46 5 mg Orally bedtime Active 1 tablet Loperamide HCl [facility] [address]-33 2 MG Orally 8 time(s) a day PRN Active 1 capsule Lamisil [facility] [address]-13 Orally Once a day Active 1 tablet Sucralfate [facility] [address]-69 1 GM Orally Twice a day Active 1 tablet on an empty stomach Pantoprazole Sodium [facility] [address]-71 40 MG Orally Once a day Active 1 tablet Estradiol [facility] [address]-60 1 MG Orally Daily for Three Weeks, 1 Week off Active 1 tablet Ropinirole HCl [facility] [address]-32 3 MG Orally Once a day Active 1 tablet 1 to 3 hours before bedtime Cilostazol [facility] [address]-57 100 MG Orally Twice a day Active 1 tablet 30 minutes before or 2 hours after breakfast and dinner Nuvigil [facility] [address]-08 150 MG Orally Once a day Active 1 tablet Acetaminophen-Codeine [facility] [address]-61 300-30 MG Orally every 6 hrs Active 1 tablet as needed Xarelto [facility] [address]-06 20 MG Orally Once a day Active 1 tablet with food Meclizine HCl [facility] [address]-15 25 MG Orally Once a day PRN Active 1 tablet as needed Cimzia Prefilled [facility] 11459419750 2 X 200 MG/ML Active INJECT CONTENTS OF ONE SYRINGE SUBCUTANEOUSLY EVERY TWO WEEKS Leflunomide [facility] [address]-20 10 mg Orally Once a day January 12, 2016 May 11, 2016 Active 1 tablet Social History Social History Element Qualifiers Date Reported Smoking status: . Are you a: Never Smoker Jun 18, 2016 alcohol no. Jun 18, 2016 Vital Signs Date/Time: Jun 18, 2016 Height 63 in Blood Pressure Diastolic 69 mm Hg Blood Pressure Systolic 148 mm Hg Weight 131.4 lbs Summary Purpose eClinicalWorks Submission
--- OUTSIDE RECORDS SUMMARY | 2018-09-02 10:27 | XMS REPORT ---
Author Author Tri Pollard [facility] eClinicalWorks Address Unknown Phone Unavailable Care Team Providers Care Clinical Reimbursement Specialist Name Role Phone Tri Pollard CP [...] 3 Month [facility] January 11, 2016 Cimzia kit refill [facility] Sep 26, 2015 Cimzia Lypholyzed-per dr [facility] October 12, 2015 Unknown [facility]umatology Clinic October 25, 2015 lab results,add leflunomide [facility] January 12, 2016 Problems Problem Type Condition ICD-9 Code Onset Dates Condition Status Assessment Gastritis K29.70 Active Assessment Left wrist pain M25.532 Active Assessment Osteoporosis M81.0 Active Problem Rheumatoid arthritis without rheumatoid factor, [...] Start Date End Date Status Dosage Xarelto [facility] [address]-24 20 MG Orally Once a day Active 1 tablet with food Tramadol HCl [facility] [address]-45 50 MG Orally every 6 hrs Active 1 tablet as needed Loperamide HCl [facility] [address]-93 2 MG Orally 8 time(s) a day PRN Active 1 capsule Guaifenesin-Codeine [facility] [address]-02 100-10 MG/5ML Orally every 4 hrs Active 5 ml Nitrofurantoin Macrocrystal [facility] [address]-90 100 MG Orally Four times a day Active 1 capsule with food or milk Meclizine HCl [facility] [address]-43 25 MG Orally Once a day PRN Active 1 tablet as needed Prolia [facility] [address]-78 60 MG/ML Subcutaneous once SC in office every 6 months Aug 11, 2015 February 07, 2016 Active as directed Promethazine HCl [facility] [address]-95 25 MG Orally Once a day PRN Active 1 tablet at bedtime Amlodipine Besylate [facility] [address]-70 2.5 MG Orally Once a day Active 1 tablet Estradiol [facility] [address]-07 1 MG Orally Daily for Three Weeks, 1 Week off Active 1 tablet Sucralfate [facility] [address]-35 1 GM Orally Twice a day Active 1 tablet on an empty stomach Cyclobenzaprine HCl [facility] [address]-88 5 mg Orally bedtime Active 1 tablet Acetaminophen-Codeine [facility] [address]-56 300-30 MG Orally every 6 hrs Active 1 tablet as needed Ropinirole HCl [facility] [address]-77 1 MG Orally Once a day Active 1 tablet 1 to 3 hours before bedtime Simvastatin [facility] [address]-27 20 MG Orally Once a day Active 1 tablet in the evening Pantoprazole Sodium [facility] [address]-49 40 MG Orally Once a day Active 1 tablet Stool Softener [facility] [address]-45 100 MG Orally Once a day Active 1 capsule as needed Vitamin D3 [facility] [address]-86 2000 UNIT Orally Active as directed Ropinirole HCl [facility] [address]-98 3 MG Orally Once a day Active 1 tablet 1 to 3 hours before bedtime Cilostazol [facility] [address]-10 100 MG Orally Twice a day Active 1 tablet 30 minutes before or 2 hours after breakfast and dinner Cimzia Prefilled [facility] 39767119582 2 X 200 MG/ML Active INJECT CONTENTS OF ONE SYRINGE SUBCUTANEOUSLY EVERY TWO WEEKS Nuvigil [facility] [address]-40 150 MG Orally Once a day Active 1 tablet Cefdinir [facility] [address]-07 300 MG Orally every 12 hrs Active 1 capsule Levothyroxine Sodium [facility] [address]-61 150 MCG Orally Once a day Active 1 tablet on an empty stomach in the morning Nexium [facility] [address]-45 40 MG Orally name brand only. generic not effective for severe gerd. once daily Active 1 capsule Pravastatin Sodium [facility] [address]-99 40 MG Orally Once a day Active 1 tablet Clindamycin HCl [facility] [address]-60 300 MG Orally every 6 hrs Active 1 capsule Gabapentin [facility] [address]-94 400 MG Orally Three times a day Active 1 capsule Social History Social History Element Qualifiers Date Reported Smoking status: . Are you a: Never Smoker January 11, 2016 alcohol no. January 11, 2016 Summary Purpose eClinicalWorks Submission
--- OUTSIDE RECORDS SUMMARY | 2018-09-02 10:27 | XMS REPORT ---
Author Author Tri Pollard [facility] eClinicalWorks Address Unknown Phone Unavailable Care Team Providers Care Central Stores Attendant Name Role Phone Tri Pollard CP [...] mngmt [facility]ology [facility] February 13, 2016 Cimzia kit refill [facility] Sep 26, 2015 Cimzia Lypholyzed-per [facility] October 12, 2015 Unknown [facility] October 25, 2015 lab results,add leflunomide [facility] January 12, 2016 Problems Problem Type Condition ICD-9 Code Onset Dates Condition Status Assessment Gastritis K29.70 Active Assessment Left wrist pain M25.532 Active Assessment Osteoporosis M81.0 Active Assessment Anemia D64.9 Active Problem Rheumatoid [...] Date End Date Status Dosage Cimzia Prefilled [facility] 48516623047 2 X 200 MG/ML Active INJECT CONTENTS OF ONE SYRINGE SUBCUTANEOUSLY EVERY TWO WEEKS Sucralfate [facility] [address]-32 1 GM Orally Twice a day Active 1 tablet on an empty stomach Ropinirole HCl [facility] [address]-20 1 MG Orally Once a day Active 1 tablet 1 to 3 hours before bedtime Leflunomide [facility] [address]-45 10 mg Orally Once a day January 12, 2016 May 11, 2016 Active 1 tablet Levothyroxine Sodium [facility] [address]-93 150 MCG Orally Once a day Active 1 tablet on an empty stomach in the morning Ropinirole HCl [facility] [address]-53 3 MG Orally Once a day Active 1 tablet 1 to 3 hours before bedtime Pantoprazole Sodium [facility] [address]-61 40 MG Orally Once a day Active 1 tablet Simvastatin [facility] [address]-74 20 MG Orally Once a day Active 1 tablet in the evening Gabapentin [facility] [address]-80 400 MG Orally Three times a day Active 1 capsule Medrol [facility] [address]-50 4 MG Orally daily February 13, 2016 February 19, 2016 Active as directed Estradiol [facility] [address]-78 1 MG Orally Daily for Three Weeks, 1 Week off Active 1 tablet Amlodipine Besylate [facility] [address]-38 2.5 MG Orally Once a day Active 1 tablet Nuvigil [facility] [address]-41 150 MG Orally Once a day Active 1 tablet Pravastatin Sodium [facility] [address]-56 40 MG Orally Once a day Active 1 tablet Xarelto [facility] [address]-65 20 MG Orally Once a day Active 1 tablet with food Cilostazol [facility] [address]-82 100 MG Orally Twice a day Active 1 tablet 30 minutes before or 2 hours after breakfast and dinner Acetaminophen-Codeine [facility] [address]-24 300-30 MG Orally every 6 hrs Active 1 tablet as needed Meclizine HCl [facility] [address]-33 25 MG Orally Once a day PRN Active 1 tablet as needed Loperamide HCl [facility] [address]-72 2 MG Orally 8 time(s) a day PRN Active 1 capsule Lamisil [facility] [address]-92 Orally Once a day Active 1 tablet Stool Softener [facility] [address]-81 100 MG Orally Once a day Active 1 capsule as needed Cyclobenzaprine HCl [facility] [address]-51 5 mg Orally bedtime Active 1 tablet Vitamin D3 [facility] [address]-96 2000 UNIT Orally Active as directed Promethazine HCl [facility] [address]-73 25 MG Orally Once a day PRN Active 1 tablet at bedtime Social History Social History Element Qualifiers Date Reported Smoking status: . Are you a: Never Smoker February 13, 2016 alcohol no. February 13, 2016 Vital Signs Date/Time: February 13, 2016 Height 63 in Blood Pressure Diastolic 83 mm Hg Blood Pressure Systolic 144 mm Hg Weight 131.6 lbs Summary Purpose eClinicalWorks Submission
--- OUTSIDE RECORDS SUMMARY | 2018-09-02 10:27 | XMS REPORT ---
Author Author Tri Pollard [facility] eClinicalWorks Address Unknown Phone Unavailable Care Team Providers Care Pipe Foreman Name Role Phone Tri Pollard CP Unavailable [...] routine fup Rheumatology Clinic Apr 18, 2015 Unknown Rheumatology Clinic October 25, 2015 new med follow up Rheumatology Clinic [...] 12, 2015 alcohol no. October 12, 2015 Summary Purpose eClinicalWorks Submission
--- OUTSIDE RECORDS SUMMARY | 2018-09-02 10:27 | XMS REPORT ---
Author Author Tri Pollard Organization eClinicalWorks Address Unknown Phone Unavailable Care Team Providers Care Gravel Truck Driver Name Role Phone Tri Pollard CP Unavailable [...] Brace RX [facility] February 16, 2015 Cimzia kit refill [facility]ology [facility] Sep [...] Instructions Start Date End Date Status Dosage Leflunomide [facility] [address]-55 10 mg Orally Once a day January 12, 2016 May 11, 2016 Active 1 tablet Social History Social History Element Qualifiers Date Reported Smoking status: . Are you a: Never Smoker January 11, 2016 alcohol no. January 11, 2016 Summary Purpose eClinicalWorks Submission
--- OUTSIDE RECORDS SUMMARY | 2018-09-02 10:27 | XMS REPORT ---
Author Author Tri Pollard [facility] eClinicalWorks Address Unknown Phone Unavailable Care Team Providers Care Computer Forensic Examiner Name Role Phone Tri Pollard CP Unavailable [...] Date Cimzia [facility]ology Clinic November 21, 2014 Prolia-Spec Pharm [facility]ology [facility] Jul 11, 2016 [...] leflunomide mngmt Rheumatology Clinic February 13, 2016 Cimjasona refill Rheumatology Clinic Apr 12, 2016 Follow up 4 Month Rheumatology Clinic Jun 18, 2016 Angiefelipe kit refill [facility]umatology Clinic Sep 26, 2015 Mario Galeanoolyzed-per Rheumatology Clinic October 12, 2015 Unknown Rheumatology [...] Instructions Start Date End Date Status Dosage Meclizine HCl [facility] [address]-06 25 MG Orally Once a day PRN Active 1 tablet as needed Stool Softener [facility] [address]-52 100 MG Orally Once a day Active 1 capsule as needed Levothyroxine Sodium [facility] [address]-82 150 MCG Orally Once a day Active 1 tablet on an empty stomach in the morning Ropinirole HCl [facility] [address]-72 3 MG Orally Once a day Active 1 tablet 1 to 3 hours before bedtime Promethazine HCl [facility] [address]-38 25 MG Orally Once a day PRN Active 1 tablet at bedtime Pantoprazole Sodium [facility] [address]-13 40 MG Orally Once a day Active 1 tablet Cyclobenzaprine HCl [facility] [address]-45 5 mg Orally bedtime Active 1 tablet Pravastatin Sodium [facility] [address]-01 40 MG Orally Once a day Active 1 tablet Vitamin D3 [facility] [address]-39 2000 UNIT Orally Active as directed Amlodipine Besylate [facility] [address]-40 2.5 MG Orally Once a day Active 1 tablet Sucralfate [facility] [address]-33 1 GM Orally Twice a day Active 1 tablet on an empty stomach Estradiol [facility] [address]-53 1 MG Orally Daily for Three Weeks, 1 Week off Active 1 tablet Leflunomide [facility] [address]-14 10 mg Orally Once a day January 12, 2016 May 11, 2016 Active 1 tablet Acetaminophen-Codeine [facility] [address]-72 300-30 MG Orally every 6 hrs Active 1 tablet as needed Nuvigil [facility] [address]-54 150 MG Orally Once a day Active 1 tablet Gabapentin [facility] [address]-64 400 MG Orally Three times a day Active 1 capsule Loperamide HCl [facility] [address]-49 2 MG Orally 8 time(s) a day PRN Active 1 capsule Cilostazol [facility] [address]-03 100 MG Orally Twice a day Active 1 tablet 30 minutes before or 2 hours after breakfast and dinner Lamisil [facility] [address]-06 Orally Once a day Active 1 tablet Cimzia Prefilled [facility] 74439275658 2 X 200 MG/ML Active INJECT CONTENTS OF ONE SYRINGE SUBCUTANEOUSLY EVERY TWO WEEKS Xarelto [facility] [address]-09 20 MG Orally Once a day Active 1 tablet with food Ropinirole HCl [facility] [address]-96 1 MG Orally Once a day Active 1 tablet 1 to 3 hours before bedtime Simvastatin [facility] [address]-04 20 MG Orally Once a day Active 1 tablet in the evening Prolia [facility] [address]-57 60 MG/ML Subcutaneous Active Unknown Social History Social History Element Qualifiers Date Reported Smoking status: . Are you a: Never Smoker Jun 18, 2016 alcohol no. Jun 18, 2016 Vital Signs Date/Time: Jul 11, 2016 Height 63 in Blood Pressure Diastolic 67 mm Hg Blood Pressure Systolic 134 mm Hg Weight 135 lbs Summary Purpose eClinicalWorks Submission
--- OUTSIDE RECORDS SUMMARY | 2018-09-02 10:27 | XMS REPORT ---
Author Author Tri Pollard [facility] eClinicalWorks Address Unknown Phone Unavailable Care Team Providers Care Blower Blast Furnace Name Role Phone Tri Pollard CP Unavailable [...] Cimzia refill [facility]umatology Clinic Apr 12, 2016 Cimzia kit refill Rheumatology Clinic Sep [...] End Date Status Dosage Cimzia Prefilled [facility] [id number] 2 X 200 MG/ML Active INJECT CONTENTS OF ONE SYRINGE SUBCUTANEOUSLY EVERY TWO WEEKS Social History Social History Element Qualifiers Date Reported Smoking status: . Are you a: Never Smoker February 13, 2016 alcohol no. February 13, 2016 Summary Purpose eClinicalWorks Submission
[2018-09-02 14:28] LABS: WBC,FECAL (FECAL LACTOFERRIN) POSITIVE (NEGATIVE)
[2018-09-02 14:30] VITALS: BP 137/66
[2018-09-02 15:15] LABS: C DIFFICILE TOXIN A&B AMP PROB NEGATIVE (NEGATIVE)
--- NOTE | 2018-09-02 15:28 | Operative Report ---
DATE OF PROCEDURE: September 02, 2018 REFERRING PHYSICIAN: Dr. Maru Mccrary PROCEDURES PERFORMED 1. Esophagogastroduodenoscopy with esophageal dilatation and biopsies. 2. Colonoscopy with biopsies and polypectomy. INDICATIONS FOR EGD: Heartburn, indigestion and dysphagia. INDICATIONS FOR COLONOSCOPY: Chronic diarrhea. MEDICATION: Patient was done under MAC. Please see anesthesiologist's note. PROCEDURE: With the patient in the left lateral decubitus position, the flexible fiberoptic Olympus gastroscope was introduced into the esophagus under direct visualization without any difficulty. There was some patchy erythema noted in the distal esophagus. The scope was then advanced with ease into the stomach traversing a moderate sized hiatal hernia. The mucosa overlying the antrum and the body revealed some patchy erythema and moderate edema, and biopsies were obtained and sent to stain for H. pylori. The pylorus was of normal contour and shape. It was intubated with ease. The scope was advanced all the way to the 2nd portion of the duodenum. Biopsies were obtained from the proximal 2nd portion to rule out sprue. The scope was then withdrawn back into the stomach and retroflexed. Mucosa overlying the fundus appeared to be within normal limits. The previously described hiatal hernia was also noted in the retroflexed position. The scope was then straightened out. It was subsequently withdrawn. Esophagus was then dilated to size 52-[employer]. Patient tolerated the procedure well. IMPRESSION 1. Distal esophagitis. 2. Esophagus dilated to size 52-[employer]. 3. Moderate size hiatal hernia. 4. Gastritis, biopsied. Biopsies sent to stain for Helicobacter pylori. 5. Rule out sprue. PLAN: Follow up histology. Initiate Protonix 40 mg 1 p.o. q.a.m. a.c. Patient was then turned around. After adequate lubrication of the anal canal, a flexible fiberoptic Olympus colonoscope was inserted into the rectum with ease and advanced all the way to the cecum. The scope was then withdrawn slowly. The cecum was not optimally visualized as the patient was a heavy belly breather. The mucosa overlying the ascending, transverse and descending revealed some patchy mild inflammatory changes and multiple random biopsies were obtained. Diverticular disease was noted to involve the distal descending and the sigmoid colon. One polyp was hot biopsied from the sigmoid colon. Two polyps were hot biopsied from the rectum. The scope was then retroflexed into the distal rectum. Small internal hemorrhoids were noted, none of which was actively bleeding. The scope was then straightened out. It was subsequently withdrawn after securing an adequate stool specimen that was sent for the appropriate stool studies. Patient tolerated the procedure well. IMPRESSION 1. Suboptimal prep. 2. Mild patchy colitis. 3. Diverticulosis. 4. Sigmoid colon polyp, hot biopsied times 1. 5. Rectal polyps, hot biopsied times 2. 6. Internal hemorrhoids, none actively bleeding. PLAN: Follow up histology. Follow up stool studies. Initiate Bentyl 20 mg 1 p.o. t.i.d. Colestid 1 g p.o. daily. Job#: [id number] RI cc: MARU MCCRARY MD
== END | disposition home or self-care (01) ==
LOC: OR 10:18
PROVIDERS: ATTEND Internal Medicine Gastroenterology
DX: K52.9 Noninfective gastroenteritis and colitis, unspecified (principal); K63.5 Polyp of colon; K62.1 Rectal polyp; K29.70 Gastritis, unspecified, without bleeding; K21.9 Gastro-esophageal reflux disease without esophagitis; K20.9 Esophagitis, unspecified; K57.30 Diverticulosis of large intestine without perforation or abscess without bleeding; K44.9 Diaphragmatic hernia without obstruction or gangrene; K64.8 Other hemorrhoids; F03.90 Unspecified dementia, unspecified severity, without behavioral disturbance, psychotic disturbance, mood disturbance, and anxiety; M19.90 Unspecified osteoarthritis, unspecified site; I25.10 Atherosclerotic heart disease of native coronary artery without angina pectoris; I10 Essential (primary) hypertension; M06.9 Rheumatoid arthritis, unspecified; I49.1 Atrial premature depolarization; Z88.0 Allergy status to penicillin; Z88.8 Allergy status to other drugs, medicaments and biological substances
CPT/HCPCS: 43239; 43450; 45380; 45384; 83630; 83993; 87045; 87177; 87328; 87493; 88305; 88312; 93005; J2704

== ENCOUNTER → 2018-09-04 | Outpatient (CLI) | payer MEDICARE ==
[~2018-09-04] MED LIST changes: +DIATRIZOATE MEGL/DIATRIZOA SOD 30 ML BTL PO ONE; +IOPAMIDOL 370 MG/ML 200 ML INFUS..BTL INJ ONE; -PROPOFOL IV EMULSION 10 MG/ML 50 ML VIAL ONE; +SODIUM CHLORIDE 0.9% 50ML 50 ML ONE
--- NOTE | 2018-09-04 13:54 | Diagnostic Imaging Report ---
EXAMINATION: CT of the abdomen and pelvis with contrast. TECHNIQUE: Helical CT images of the abdomen and pelvis were performed from the lung bases to the lesser trochanters after the intravenous administration of 150 cc of Isovue 300 and the oral administration of Gastrografin. Coronal and sagittal reformatted images were obtained. Dose modulation, iterative reconstruction, and/or weight based adjustment of the mA/kV was utilized to reduce the radiation dose to as low as reasonably achievable. COMPARISON: None. CLINICAL HISTORY:Diarrhea DISCUSSION: ABDOMEN/PELVIS: LOWER THORAX:Unremarkable. HEPATOBILIARY: Hypodensities within the liver, largest on the right measuring 1.9 cm. No intra-or extrahepatic biliary ductal dilation. Cholecystectomy. SPLEEN: Calcified granuloma. PANCREAS: Pancreatic atrophy. ADRENALS: No adrenal nodules. KIDNEYS/URETERS: 4.5 cm cyst right kidney. No solid mass lesion. No hydronephrosis. PELVIC ORGANS/BLADDER: The bladder is unremarkable. Prostate calcifications. PERITONEUM/RETROPERITONEUM: No free air or fluid. LYMPH NODES: No intra-abdominal, retroperitoneal, pelvic or inguinal lymphadenopathy. VESSELS: Vascular calcifications. GI TRACT: Moderate hiatal hernia. Colonic diverticulosis without inflammatory change. BONES AND SOFT TISSUE: Degenerative changes of the lumbar spine most advanced at L3-L4 through L5-S1 with severe degenerative disc disease and facet arthrosis. No soft tissue abnormalities. IMPRESSION: Diverticulosis without inflammatory change. Moderate hiatal hernia. Signed by: Dr. Ayaz Kaiser M.D. on 09/04/2018 1:51 PM
== END ==
LOC: CT 11:18
PROVIDERS: ATTEND Internal Medicine Gastroenterology
DX: R19.7 Diarrhea, unspecified (principal); R13.10 Dysphagia, unspecified; K57.90 Diverticulosis of intestine, part unspecified, without perforation or abscess without bleeding
CPT/HCPCS: 74177; Q9967